=== PATIENT | male | born 1935 | race Hispanic/Latino ===

== ENCOUNTER 2018-03-15 13:03 | Inpatient (IN) | payer MEDICARE ==
[2018-03-15 13:04] VITALS: PULSE 160
[2018-03-15 13:18] VITALS: BMI 26.9
--- NOTE | 2018-03-15 13:34 | ED PDOC ---
Arrival/HPI - General Time Seen by Provider: 03/15/18 13:34 Historian: Patient, Family - History of Present Illness Narrative History of Present Illness (Text): 03/15/18 13:34 Patient is a 83 year old male whose past medical history includes COPD, who was brought by EMS to the Emergency Department with his daughter for dyspnea on exertion. Daughter reports that patient started experiencing shortness of breath 4 days ago, and at that time noticed he was breathing faster and wheezing. Today, he saw his PMD and started experiencing dyspnea while walking with his walker. His PMD measured his Pulse Ox at 85, and subsequently instructed him to present to the emergency department for chest X-ray. Of note he lives with his partner, and his daughter denies that patient experiences confusion. Patient has scrapes on his lower extremities, which he attributes to falling last week, and daughter doesn't believe he hit his head. He currently denies any dyspnea. Patient denies fevers, chills, cough, chest pain, abdominal pain, nausea, vomiting, diarrhea, neck/back pain, urinary/bowel changes, headache, dizziness, or any other complaint. Patient had flu shot last week. PMD: . Time/Duration: < week Symptom Onset: Sudden Symptom Course: Unchanged Activities at Onset: Light Context: Walking Past Medical History - Provider Review Nursing Documentation Reviewed: Yes - Infectious Disease Hx of Infectious Diseases: None - Tetanus Immunization Tetanus Immunization: Unknown - Cardiac Hx Pacemaker: No - Pulmonary Hx Chronic Obstructive Pulmonary Disease (COPD): Yes Hx Emphysema: Yes Hx Sleep Apnea: Yes (uses bipap at home) - Neurological Hx Paralysis: No - HEENT Other/Comment: bilateral hearing aids - Hematological/Oncological Hx Blood Transfusions: No - Integumentary Hx Cellulitis: Yes - Musculoskeletal/Rheumatological Hx Musculoskeletal Disorders: Yes - Gastrointestinal Hx Gastroesophageal Reflux: Yes Other/Comment: gi bleed - Genitourinary/Gynecological Hx Genitourinary Disorders: No Hx Reproductive Disorders: No - Psychiatric Hx Emotional Abuse: No Hx Physical Abuse: No Hx Substance Use: No - Surgical History Hx Inguinal Hernia Repair: Yes Other/Comment: colon sx - Anesthesia Hx Anesthesia Reactions: No Hx Malignant Hyperthermia: No - Suicidal Assessment Feels Threatened In Home Enviroment: No Family/Social History - Physician Review Nursing Documentation Reviewed: Yes Family/Social History: No Known Family HX Smoking Status: quit 10 yr Hx Alcohol Use: No Hx Substance Use: No Hx Substance Use Treatment: No Allergies/Home Meds Allergies/Adverse Reactions: Allergies No Known Allergies Allergy (Verified 03/15/18 13:36) Home Medications: Home Meds Medication Instructions Recorded Confirmed RX: Albuterol HFA [Ventolin HFA 90 1 puff IH DAILY PRN 03/15/12 03/15/18 mcg/actuation (8 g)] RX: Alprazolam [Xanax] 0.25 mg PO HS 03/15/18 03/15/18 RX: Cetirizine HCl [Zyrtec] 10 mg PO DAILY 03/15/18 03/15/18 RX: Fluticasone/Vilanterol 200/25 1 each PO DAILY 03/15/18 03/15/18 [Breo Ellipta 200-25 Mcg INH] RX: Lisinopril [Zestril] 5 mg PO DAILY 03/15/18 03/15/18 RX: Mirtazapine [Remeron] 15 mg PO DAILY 03/15/18 03/15/18 RX: Montelukast [Singulair] 10 mg PO DAILY 03/15/18 03/15/18 RX: Sertraline [Zoloft] 50 mg PO DAILY 03/15/18 03/15/18 RX: Simvastatin [Zocor] 20 mg PO DAILY 03/15/18 03/15/18 Review of Systems - Physician Review All systems were reviewed & negative as marked: Yes - Review of Systems Constitutional: absent: Fevers, Night Sweats Cardiovascular: NUGENT. absent: Chest Pain Gastrointestinal: absent: Abdominal Pain, Constipation, Diarrhea, Nausea, Vomiting Genitourinary Male: absent: Dysuria, Urinary Output Changes Musculoskeletal: absent: Back Pain, Neck Pain Neurological: absent: Headache, Dizziness Physical Exam Vital Signs Reviewed: Yes Vital Signs Temp Pulse Resp BP Pulse Ox 03/15/18 13:17 98.1 F 94 H 20 139/76 100 Temperature: Afebrile Blood Pressure: Normal Pulse: Regular Respiratory Rate: Normal Appearance: Positive for: Well-Appearing Mental Status: Positive for: Alert and Oriented X 3 - Systems Exam Head: Present: Atraumatic, Normocephalic Pupils: Present: PERRL Extroacular Muscles: Present: EOMI Conjunctiva: Present: Normal Mouth: Present: Moist Mucous Membranes Neck: Present: Normal Range of Motion Respiratory/Chest: Present: Good Air Exchange, Wheezes (scant bilateral expiratory wheezes.). No: Respiratory Distress, Accessory Muscle Use, Rales, Rhonchi Cardiovascular: Present: Regular Rate and Rhythm, Normal S1, S2. No: Murmurs Abdomen: No: Tenderness, Distention, Peritoneal Signs Back: Present: Normal Inspection Upper Extremity: Present: Normal Inspection. No: Cyanosis, Edema Lower Extremity: Present: Edema (trace bilateral lower extremity edema.), Other (chronic venous stasis.) Neurological: Present: GCS=15, CN II-XII Intact, Speech Normal Skin: Present: Warm, Dry, Normal Color, Abrasion (multiple superficial abrasions to bilateral lower extremities.). No: Rashes Psychiatric: Present: Alert, Oriented x 3, Normal Insight, Normal Concentration Medical Decision Making ED Course and Treatment: 03/15/18 13:34 Impression: Patient is a 83 year old male complaining of dyspnea on exertion for the past 4 days. Differential Diagnosis included but are not limited to: Plan: -- Head CT without contrast -- EKG -- Labs -- Cardiac enzymes -- Chest X-ray -- Urinalysis -- Reassess and disposition Prior Visits: Notes and results from previous visits were reviewed. Progress Notes: 03/15/18 15:21 Discussed case with , who is aware of and agrees to admit patient under her service. Patient will be treated with IV antibiotics for pneumonia. - Lab Interpretations Lab Results: Lab Results 03/15/18 13:13: POC Glucose (mg/dL) 97 I have reviewed the lab results: Yes - RAD Interpretation Narrative RAD Interpretations (Text): 03/15/18 14:[address] without Contrast: Dictator : Marquise Kirby MD FINDINGS: HEMORRHAGE: No intracranial hemorrhage. BRAIN: No mass effect or edema. Cortical and cerebellar atrophy, periventricular small vessel disease. VENTRICLES: Unremarkable. No hydrocephalus. CALVARIUM: Unremarkable. PARANASAL SINUSES: Unremarkable as visualized. No significant inflammatory changes. MASTOID AIR CELLS: Unremarkable as visualized. No inflammatory changes. OTHER FINDINGS: None. IMPRESSION: No acute intracranial abnormalities. No significant findings to account for the clinical presentation. No significant interval change compared to the prior examination(s). 03/15/18 16:35 Chest X-ray: Dictator : Marquise Kirby MD FINDINGS: LUNGS: Chronic interstitial lung disease. The findings are progressive compared to the prior study. PLEURA: No significant pleural effusion identified. No pneumothorax apparent. CARDIOVASCULAR: No radiographic findings to suggest acute or significant cardiovascular disease. OSSEOUS STRUCTURES: No significant abnormalities. VISUALIZED UPPER ABDOMEN: Normal. OTHER FINDINGS: None. IMPRESSION: Progressive interstitial changes. No focal, discrete infiltrates. Motor Brakeman: Radiologist - EKG Interpretation EKG Interpretation (Text): 03/15/18 13:17 EKG shows NSR at 100bpm with normal QRS, and frequent PAC's. No acute ST/T wave abnormality. Interpreted by me. Interpreted by ED Physician: Yes Type: 12 lead EKG - Scribe Statement The provider has reviewed the documentation as recorded by the Scribe Derick Allison Provider Scribe Attestation: All medical record entries made by the Scribe were at my direction and personally dictated by me. I have reviewed the chart and agree that the record accurately reflects my personal performance of the history, physical exam, medical decision making, and the department course for this patient. I have also personally directed, reviewed, and agree with the discharge instructions and disposition. Disposition/Present on Arrival - Present on Arrival Any Indicators Present on Arrival: No History of DVT/PE: No History of Uncontrolled Diabetes: No Urinary Catheter: No History Surgical Site Infection Following: None - Disposition Have Diagnosis and Disposition been Completed?: Yes Diagnosis: Pneumonia Disposition: HOSPITALIZED Disposition Time: 15:21 Condition: FAIR
[2018-03-15 13:58] LABS: BASO # 0.04 K/mm3 (0.0-2.0); BASO % 0.3 % (0.0-3.0); EOS # 0.1 (0.0-0.7); EOS % 0.6 % (1.5-5.0); GRAN # 12.07 (1.4-6.5); HEMOGLOBIN 14.4 g/dL (14.0-18.0); LYMPH # 1.4 (1.2-3.4); LYMPH % 9.9 % (22.0-35.0); MEAN CELL VOLUME 96.2 fl (80.0-105.0); MEAN CORPUSCULAR HEMOGLOBIN 31.8 pg (25.0-35.0); MEAN PLATELET VOLUME 9.6 fl (7.0-11.0); MONO # 0.9 (0.1-0.6); MONO % 6.2 % (1.0-6.0); RBC 4.53 10^6/uL (3.5-6.1); RED CELL DISTRIBUTION WIDTH 13.3 % (11.5-14.5); WHITE BLOOD COUNT 14.5 10^3/ul (4.5-11.0)
[2018-03-15 14:02] LABS: INR 1.31; PARTIAL THROMBOPLASTIN TIME 25.1 Seconds (25.1-36.5); PROTHROMBIN TIME 15.1 SECONDS (9.4-12.5)
[2018-03-15 14:05] LABS: ALB/GLOB RATIO 1.1 (1.1-1.8)
[2018-03-15 14:08] LABS: ALBUMIN 3.7 g/dL (3.0-4.8); ALT/SGPT 23 U/L (7-56); AST/SGOT 33 U/L (17-59); BLOOD UREA NITROGEN 16 mg/dL (7-21); CALCIUM 9.2 mg/dL (8.4-10.5); GFR NON-AFRICAN AMERICAN > 60
--- NOTE | 2018-03-15 14:20 | CT ---
Date of service: 03/15/2018 PROCEDURE: CT HEAD WITHOUT CONTRAST. HISTORY: trauma COMPARISON: 05/05/2014 TECHNIQUE: Axial computed tomography images were obtained through the head/brain without intravenous contrast. Supplemental Coronal and Sagittal projectections created and reviewed. Radiation dose: Total exam DLP = 1052.05 mGy-cm. This CT exam was performed using one or more of the following dose reduction techniques: Automated exposure control, adjustment of the mA and/or kV according to patient size, and/or use of iterative reconstruction technique. FINDINGS: HEMORRHAGE: No intracranial hemorrhage. BRAIN: No mass effect or edema. Cortical and cerebellar atrophy, periventricular small vessel disease. VENTRICLES: Unremarkable. No hydrocephalus. CALVARIUM: Unremarkable. PARANASAL SINUSES: Unremarkable as visualized. No significant inflammatory changes. MASTOID AIR CELLS: Unremarkable as visualized. No inflammatory changes. OTHER FINDINGS: None. IMPRESSION: No acute intracranial abnormalities. No significant findings to account for the clinical presentation. No significant interval change compared to the prior examination(s).
[2018-03-15 14:24] LABS: B-TYPE NATRIURETIC PEPTIDE 254 pg/mL (0-450); TROPONIN I 0.02 ng/mL
[2018-03-15] MEDS ORDERED: cefTRIAXone 1 gm 1 GM/100 ML BAG IVPB STA (15:30)
[2018-03-15] MEDS ORDERED: Azithromycin 500MG/NS 250ml 500 MG/250 ML BAG IVPB STA (15:31)
--- NOTE | 2018-03-15 16:12 | RAD ---
Date of service: 03/15/2018 HISTORY: dyspnea, pneumonia, hx copd COMPARISON: 06/05/2014 TECHNIQUE: Chest PA and lateral FINDINGS: LUNGS: Chronic interstitial lung disease. The findings are progressive compared to the prior study. PLEURA: No significant pleural effusion identified. No pneumothorax apparent. CARDIOVASCULAR: No radiographic findings to suggest acute or significant cardiovascular disease. OSSEOUS STRUCTURES: No significant abnormalities. VISUALIZED UPPER ABDOMEN: Normal. OTHER FINDINGS: None. IMPRESSION: Progressive interstitial changes. No focal, discrete infiltrates.
[2018-03-15] MEDS ORDERED: Albuterol 0.083% Inhal Sol (2.5 mg/3 mL) UD IH PRN (21:05)
[2018-03-15] MEDS ORDERED: Pneumococcal 23-Valent Vaccine IM ONE (22:14)
[2018-03-16] MEDS: Pantoprazole 20 mg EC Tab PO SCH (08:30)
--- NOTE | 2018-03-16 09:11 | CARD ---
APPROVED REPORT Date of service: 03/15/2018 EKG Measurement Heart [id number] <Conclusion> Sinus rhythm with premature supraventricular complexes Mild NSSTW changes and QTc prolongation
[2018-03-16] MEDS ORDERED: Azithromycin 500 MG in Sodium Chloride 0.9% 250 ML IVPB SCH (10:00)
[2018-03-16] MEDS: cefTRIAXone 1 gm 1 GM/100 ML BAG IVPB SCH (10:34)
[2018-03-16] MEDS: Azithromycin 500MG/NS 250ml 500 MG/250 ML BAG IVPB SCH (10:34)
[2018-03-16] MEDS: [UNRECOGNIZED DRUG - OTHER] PO SCH (10:35)
--- NOTE | 2018-03-17 04:04 | CON ---
DATE: 03/16/2018 REFERRING PHYSICIAN: Jennifer Brown MD REASON FOR CONSULT: Hypoxemia, pneumonia. HISTORY OF PRESENT ILLNESS: This is an 83-year-old gentleman known to me from previous admission in the office seen by me few years ago, apparently found at home by the daughter with shortness of breath, hypoxemia, having cough, sent to ER, found to have pulmonary infiltrate, admitted, at present he feels okay, very heard of hearing. No hemoptysis, hematemesis, hematuria. No diarrhea or vomiting. PAST MEDICAL HISTORY: Chronic obstructive lung disease, obstructive sleep apnea syndrome, noncompliant with CPAP, degenerative joint disease, GERD, history of inguinal hernia, depression, hyperlipidemia. ALLERGIES: NONE KNOWN. SOCIAL HISTORY: Nonsmoker, nondrinker. Last time smoked was about 10 years ago. FAMILY HISTORY: No significant pulmonary disease reported. MEDICATIONS: He is on albuterol/Atrovent nebulizer p.r.n. basis, Claritin 10 mg daily, getting BREO one puff daily, Lipitor 10 mg daily, Protonix 20 mg before breakfast, Remeron 15 mg daily, Rocephin 1 g daily, Singulair 10 mg daily, Xanax 0.25 mg at bedtime, Zestril 5 mg daily, Zithromax 500 mg daily, Zoloft 50 mg daily. REVIEW OF SYSTEMS: No headache. No rhinitis. Mild cough and shortness of breath. No chest pain. No nausea. No vomiting or diarrhea. No leg pain or leg swelling. PHYSICAL EXAMINATION: GENERAL: No acute distress. VITAL SIGNS: Temp is 98, heart rate is 82, respiratory rate is 18, blood pressure 102/59, pulse ox 96% on 2 L nasal cannula. HEENT: Moist mucous membranes, crowded airway. Mallampati score is 4. NECK: Supple. No JVD. LUNGS: Few crackles. No rhonchi. HEART: S1 and S2. ABDOMEN: Soft, nontender. No organomegaly. EXTREMITIES: No edema. NEUROLOGIC: Awake, alert. Follows simple command. LABORATORY DATA: Shows hemoglobin 14.4, hematocrit 43.6, WBC 14.5, platelets is 270. INR 1.31, PTT 25. Sodium 143, potassium 3.6, chloride 106, bicarbonate 28, BUN 16, creatinine 0.8, glucose 107, calcium 9.2, magnesium 2, total bilirubin 1.1, AST 23, ALT 23, alkaline phosphatase is 90. Pro BNP 254, albumin is 3.7. Microbiology, blood culture out of 2 has gram positive cocci. Chest x-ray done in ER shows progressive interstitial changes. No focal discrete infiltrate. Also has a CT of the head done, which shows no acute intracranial abnormality. IMPRESSION AND PLAN: Chronic obstructive lung disease, has interstitial pattern, history of sleep apnea syndrome, very hard of hearing, history of gastroesophageal reflux disease, depression, anxiety disorder, hyperlipidemia. Patient stopped using his CPAP. Noncompliant with the followup. Has interstitial disease, progressively getting worse. We will get CT scan of the chest without contrast. Also we will get ABG to assess pCO2. Continue inhaled bronchodilator for now. We will add prednisone 20 mg daily. Continue antibiotics. Also we will do swallow evaluation to assure there is no chronic aspiration. Thank you and we will follow with you. Kimmy Gan MD
--- NOTE | 2018-03-17 07:16 | HP ---
The patient is 83-year-old male. The patient was seen and examined on the bedside on 03/16/2018. CHIEF COMPLAINT: Shortness of breath, coughing, fatigue. HISTORY OF PRESENT ILLNESS: Mr. Ishmael Martínez is a 83-year-old male with past medical history of COPD, asthma, brought to the Emergency Department with his daughter for dyspnea on exertion. Daughter reports that the patient started experiencing shortness of breath four days ago and that time noticed that he was breathing faster and wheezing. Today, the patient came in my office and during vitals, we noted the patient's oxygenation is in 80s and he is very dyspneic. Then, I talked to the patient and the patient's daughter and we called [employer] and transferred the patient to the emergency room. The patient came to the emergency room, was dyspneic. Oxygen was given. Workup was done, came to know the patient has had pneumonia, admitted the patient, started antibiotic. Pulmonary consult called. DuoNeb and bronchodilators given. He is started feeling better. PAST MEDICAL HISTORY: COPD, sleep apnea, cellulitis of the lower extremities, bilateral hearing aid, history of GI bleeding. FAMILY HISTORY: Father and mother, noncontributory. HABITS: Smoking, quit 10 years ago. Alcohol, no. Substance abuse, no. ALLERGIES: THE PATIENT IS NOT ALLERGIC WITH ANY MEDICATIONS. HOME MEDICATIONS: Ventolin, bupropion, Xanax, Zyrtec, fluticasone, Zestril, Remeron, Singulair, Zocor. REVIEW OF SYSTEMS: The patient was seen and examined on the bedside, looking comfortable. No nausea, vomiting or diarrhea. No hematuria or hematochezia. Cough, shortness of breath and dyspnea is better. No swelling of the leg. No neck pain, no back pain. No headache or dizziness. PHYSICAL EXAMINATION VITAL SIGNS: Temperature 98.1, pulse 94, respiratory rate 20, blood pressure 139/76, pulse oximetry 100. HEENT: Head: Normocephalic, atraumatic. Eyes: PERRLA. Extraocular muscles are intact. Conjunctivae are clear. Nose patent. Mucous membranes moist. NECK: Supple. No carotid bruit. No JVD or thyromegaly. CHEST: Bilaterally symmetrical. LUNGS: Scattered bilateral expiratory wheezing. HEART: S1, S2 positive. ABDOMEN: Soft, nontender. No organomegaly. EXTREMITIES: Trace bilateral lower extremity edema. No cyanosis. NEUROLOGIC: The patient is awake and alert. Follows simple commands. LABORATORY DATA: White blood cells 14.5, hemoglobin 14.4, hematocrit 43.6, platelets 270. Sodium 143, potassium 3.6, BUN 15, creatinine 0.8, glucose 107. ASSESSMENT AND PLAN: Mr. Ishmael Martínez is 83-year-old male with leukocytosis, came with dyspnea. CAT scan of the head done. No acute intracranial abnormalities. No significant findings found for the clinical presentation. No significant changes compared to the prior examination. Chest x-ray done, progressive interstitial changes, no focal discrete infiltrates. The patient has history of chronic obstructive pulmonary disease, asthma, degenerative joint disease, history of dementia, sleep apnea, using BiPAP at home, bilateral hearing aid, history of gastrointestinal bleeding. We called Pulmonary consult with Dr. Gan. Started on Claritin. Atorvastatin for hypercholesterolemia. Dr. Gan put her on low-dose of steroid, pantoprazole for gastrointestinal prophylaxis. Ceftriaxone as the antibiotics started. Patient is getting Xanax low dose to keep him cool and calm. Lisinopril for hypercholesterolemia, Zoloft for depression. Length of time discussion done with the patient's daughter. Repeat labs. Continue antibiotics. We will follow up. Jennifer Brown MD
[2018-03-17 07:37] LABS: HDL CHOLESTEROL 25 mg/dL (29-60); IRON 43 ug/dL (45-180)
[2018-03-17 07:46] LABS: % IRON SATURATION 21 % (20-55); TOTAL IRON BINDING CAPACITY 208 ug/dL (261-462)
[2018-03-17 07:48] LABS: LDL CHOLESTEROL 83 mg/dL (0-129)
[2018-03-17] MEDS: Pantoprazole 20 mg EC Tab PO SCH (08:30)
[2018-03-17] MEDS: Azithromycin 500MG/NS 250ml 500 MG/250 ML BAG IVPB SCH (10:27)
[2018-03-17] MEDS: cefTRIAXone 1 gm 1 GM/100 ML BAG IVPB SCH (10:45)
--- NOTE | 2018-03-17 13:45 | CT ---
Date of service: 03/17/2018 PROCEDURE: CT Chest without contrast HISTORY: interstitial disease COMPARISON: 03/15/2018 single-view chest. 06/05/2014 single-view chest. 06/04/2014 CT abdomen and pelvis including lower lung reyes. TECHNIQUE: Contiguous axial images were obtained through the chest without intravenous contrast enhancement. Sagittal and coronal reconstructions were performed. Radiation dose (DLP): 409.64 mGy-cm. This CT exam was performed using one or more of the following dose reduction techniques: Automated exposure control, adjustment of the mA and/or kV according to patient size, and/or use of iterative reconstruction technique. FINDINGS: LUNGS: Formation of progressive interstitial lung disease. The findings primarily affect the lower lobes, with portions of lingula and right middle lobe also affected. The differential diagnostic considerations include idiopathic pulmonary fibrosis, granulomatous disease such as sarcoid infectious/inflammatory etiologies, exposure to dust, silica and similar irritants. Additional relevant findings include peripheral and pleural base masses in the right upper lobe, lingula and right lower lobe. Discrete pulmonary nodule superior segment right lower lobe 1.5 cm. MEDIASTINUM: Unremarkable thoracic aorta. No aneurysm. Normal sized heart. Dilated main pulmonary artery 3.5 cm consistent with pulmonary arterial hypertension. No lymphadenopathy. PLEURA: No pleural fluid. No pneumothorax. BONES: No fracture. No destructive lesion. UPPER ABDOMEN: Grossly unremarkable. OTHER FINDINGS: None. Peripheral, pleural-based mass at the confluence of major and minor fissures and right upper lobe. IMPRESSION: Confirmation of progression of interstitial lung disease. Differential considerations have been provided above. Confluent, consolidative changes bilaterally which may be part of this chronic process. Additional pulmonary nodule right lower lobe
--- NOTE | 2018-03-17 22:54 | PN ---
DATE: 03/17/2018 PULMONARY PROGRESS NOTE REFERRING PHYSICIAN: Dr. Brown SUBJECTIVELY: He is lying in the bed at 45 degrees. Feels okay. Still on nasal cannula oxygen. No cough, no sputum production. No nausea, vomiting, diarrhea, leg pain or leg swelling. OBJECTIVE: GENERAL: In no acute distress. VITAL SIGNS: Temperature is 98, heart rate is 83, respiratory rate is 20, blood pressure 104/62, pulse of 97% on 2 liters nasal cannula. HEENT: Moist mucous membrane. Crowded airway. Mallampati score is 4. NECK: Supple. No JVD. LUNGS: Has crackles and rhonchi. HEART: S1 and S2. ABDOMEN: Soft, nontender, no organomegaly. EXTREMITIES: No edema. NEUROLOGIC: Awake and alert, follows simple commands, is very hard of hearing. MEDICATIONS: He is on albuterol/Atrovent nebulizer p.r.n., also on Claritin 10 mg daily. He is getting Breo Ellipta 1 puff daily, Lipitor 10 mg daily, prednisone 20 mg daily, Protonix 20 mg daily, Remeron 15 mg at bedtime, Rocephin 1 g IV daily, Singulair 10 mg daily, Xanax 0.25 mg at bedtime, Zestril 5 mg daily, Zithromax 5 mg daily, Zoloft 50 mg daily. LABORATORY DATA: Reviewed, shows hemoglobin A1c 4.9, iron is 43, TIBC 208, cholesterol is 131. Vitamin B12 is 589. Microbiology; 1 out of 2 blood culture is positive. CAT scan of the chest shows progressive interstitial lung disease along with has also new finding, consolidative changes bilaterally which may be part of the chronic process. There is also additional pulmonary nodule in the right lower lobe, dilated pulmonary artery 3.5 cm, consistent with pulmonary arterial hypertension. IMPRESSION AND PLAN: Chronic obstructive lung disease, has interstitial and nodular changes on the CT, known sleep apnea syndrome, noncompliance with the CPAP and follow-up, pulmonary hypertension, gastroesophageal reflux disease, depression, anxiety disorder, hyperlipidemia. I called the patient's daughter, Isidra on her cell phone and there is no answer message left. I spoke to the patient in detail about lung finding, possibility of biopsy which she refused that he is 84 years old, does not want any biopsy, but we will continue to reach the patient's daughter to discuss further option. Also swallow evaluation is being done. For now I will continue bronchodilator. Keep head at 45 degrees. We will also get echocardiogram to assess RV and LV function. Thank you and we will follow with you. Kimmy Gan MD
--- NOTE | 2018-03-17 23:25 | PN ---
DATE: 03/17/2018 SUBJECTIVE: The patient was seen and examined on the bedside, looking comfortable. No nausea, vomiting, diarrhea. No hematuria or hematochezia. No swelling of the leg. No chest pain. No palpitation. Still coughing and having shortness of breath. No fever. No chills. PHYSICAL EXAMINATION: VITAL SIGNS: Temperature 97.8, pulse 76, blood pressure 155/75, respiratory rate 20. HEENT: Head normocephalic, atraumatic. Eyes PERRLA. Extraocular muscles intact. Conjunctivae clear. Nose patent. Mucous membrane moist. NECK: Supple. No carotid bruit. No JVD or thyromegaly. CHEST: Bilaterally symmetrical. HEART: S1 and S2 positive. LUNGS: Positive wheezing bilaterally. ABDOMEN: Soft. Bowel sounds positive. No organomegaly. EXTREMITIES: No edema. No cyanosis. NEUROLOGICAL: The patient is awake and alert. Moving all 4 extremities. No focal deficits. MEDICATIONS: Albuterol, Brovana, Claritin, Lipitor, prednisone, Protonix, Pulmicort, Remeron, Rocephin, Singulair, Xanax, Zestril, Zithromax, Zoloft. LABORATORY DATA: We do not have recent lab today, but I reviewed old labs. Hemoglobin A1c is 4.9. ASSESSMENT AND PLAN: Mr. Ishmael Martínez, 83-year-old male with chronic obstructive lung disease, obstructive sleep apnea syndrome, noncompliant with continuous positive airway pressure, degenerative joint disease, gastroesophageal reflux disease, dyspepsia, history of inguinal hernia, depression, hypercholesterolemia. Came with exacerbation of chronic obstructive pulmonary disease. Has interstitial pattern. Very hard of hearing, history of gastroesophageal reflux disease, depression, anxiety disorder, hypercholesterolemia. The patient has stopped using his continuous positive airway pressure. Noncompliant with followup. Has interstitial disease progressing and getting worse. Dr. Gan got CAT scan of the chest, I reviewed. Continue inhaled bronchodilators. Dr. Gan added prednisone. Continue antibiotics. We will do swallowing evaluation to assure that there is no chronic aspiration components. Gastrointestinal, deep venous thrombosis prophylaxis. Repeat labs. We will follow up. Jennifer Brown MD
[2018-03-18 08:55] LABS: HEMOGLOBIN 14.5 g/dL (14.0-18.0); MEAN CELL VOLUME 96.4 fl (80.0-105.0); MEAN CORPUSCULAR HEMOGLOBIN 31.1 pg (25.0-35.0); MEAN CORPUSCULAR HGB CONC 32.3 g/dl (31.0-37.0); MEAN PLATELET VOLUME 9.6 fl (7.0-11.0); RBC 4.66 10^6/uL (3.5-6.1); RED CELL DISTRIBUTION WIDTH 13.2 % (11.5-14.5); WHITE BLOOD COUNT 11.8 10^3/ul (4.5-11.0)
[2018-03-18 09:14] LABS: BLOOD UREA NITROGEN 14 mg/dL (7-21); CALCIUM 8.8 mg/dL (8.4-10.5); GFR NON-AFRICAN AMERICAN > 60
[2018-03-18] MEDS: Arformoterol 15 mcg/2 ml Inh Sol IH SCH ×2 (10:09→21:41)
[2018-03-18] MEDS: Budesonide 0.5 mg/2 ml Inhal Susp UD IH SCH ×2 (10:09→21:41)
[2018-03-18] MEDS: Pantoprazole 20 mg EC Tab PO SCH (10:26)
[2018-03-18] MEDS: cefTRIAXone 1 gm 1 GM/100 ML BAG IVPB SCH (10:26)
[2018-03-18] MEDS: Azithromycin 500MG/NS 250ml 500 MG/250 ML BAG IVPB SCH (10:27)
--- NOTE | 2018-03-18 21:15 | PN ---
DATE: 03/18/2018 PULMONARY PROGRESS NOTE REFERRING PHYSICIAN: Jennifer Brown MD SUBJECTIVE: He is lying in the bed, head at 45 degrees, having lunch. Family at bedside, still has some cough. No sputum production. No nausea, vomiting, or diarrhea. No leg pain or leg swelling. OBJECTIVE: GENERAL: In no acute distress. VITAL SIGNS: Temperature is 98, heart rate 77, respiratory rate is 18, blood pressure 105/58, pulse ox 96% on 2 liters nasal cannula. HEENT: Moist mucous membrane. Crowded airway. Mallampati score is 4. NECK: Supple. No JVD. LUNGS: Have crackles at the bases with scattered rhonchi. HEART: S1 and S2. ABDOMEN: Soft, nontender. No organomegaly. EXTREMITIES: There is no edema. NEUROLOGICAL: Awake and alert. Follows simple command. MEDICATIONS: He is on albuterol/Atrovent nebulizer p.r.n. basis, Brovana inhaled twice a day, Claritin 10 mg daily, Lipitor 10 mg daily, prednisone 20 mg daily, Protonix 40 mg daily, Pulmicort inhaled twice a day, Remeron 15 mg at bedtime, Rocephin 1 g daily, Singulair 10 mg daily, Xanax 0.25 mg at bedtime, Zestril 2.5 mg daily, Zithromax 500 mg daily, Zoloft 50 mg daily. LABORATORY DATA: Shows hemoglobin 14.5, hematocrit 44.9, WBC 11.8, platelet is 247. Sodium 141, potassium 2.9, chloride 104, bicarbonate 32, BUN 14, creatinine 0.7, glucose is 91, calcium is 8.8. Microbiology: Blood culture 1/2 positive for Gram-positive. IMPRESSION AND PLAN: Chronic obstructive lung disease, interstitial and nodular changes on the CT, sleep apnea syndrome, noncompliant with the CPAP, pulmonary hypertension, gastroesophageal reflux disease, depression, anxiety disorder, hyperlipidemia. Spoke to his significant other. Left a message for the patient's daughter, Isidra. The patient does not want any invasive procedure at this time understanding do not have diagnosis for lung nodule. Also spoke to Dr. Brown. We will repeat blood culture. Gastric prophylaxis, deep vein thrombosis prophylaxis, inhaled bronchodilators, steroids, out of bed to chair, physical therapy. Thank you and we will follow with you. Kimmy Gan MD [facility] # [id number]
--- NOTE | 2018-03-18 23:13 | PN ---
DATE: 03/18/2018 SUBJECTIVE: Patient is an 83-year-old male. Patient was seen and examined on the bedside, looking comfortable. No fever. No chills. No headache. No dizziness. Still coughing with shortness of breath. PHYSICAL EXAMINATION: VITAL SIGNS: Temperature 97.9, pulse 77, blood pressure 105/58, respiratory rate 18. HEENT: Head: Normocephalic, atraumatic. Eyes: PERRLA. Extraocular muscles intact. Conjunctivae clear. Nose patent. Mucous membrane moist. NECK: Supple. No carotid bruit. No JVD or thyromegaly. CHEST: Bilaterally symmetrical. HEART: S1 and S2 positive. LUNGS: Positive wheezing bilaterally. ABDOMEN: Soft. Bowel sounds present. No organomegaly. EXTREMITIES: No edema. No cyanosis. NEUROLOGIC: Patient is awake and alert. Moving all 4 extremities. No focal deficit. MEDICATIONS: Brovana, Claritin, Lipitor, prednisone, Protonix, Pulmicort, Remeron, ceftriaxone, Singulair, Xanax, Zestril, azithromycin, Zoloft. LABORATORY DATA: White blood cells 11.8, hemoglobin 14.5, hematocrit 44.9, platelets 247. Sodium 141, potassium 3.9, BUN 14, creatinine 0.7, glucose 91. ASSESSMENT AND PLAN: Mr. Ishmael Martínez is an 83-year-old male with leukocytosis, iron deficiency, has chronic obstructive lung disease, interstitial and nodular changes on the CAT scan, known sleep apnea syndrome, noncompliant with CPAP and followup, pulmonary hypertension, gastroesophageal reflux disease, depression, anxiety syndrome, hypercholesterolemia. Spoke to patient's daughter, Isidra couple of times. Length of time discussion done with Dr. Gan. Patient's lung nodules are increasing in size. Patient is refusing all services. He wants to go home, but I educated him to stay in the hospital. Patient need biopsy, but he is refusing. We will discuss with patient's daughter and son. Meanwhile, continue present treatment. Repeat labs. We will follow up. Jennifer Brown MD
[2018-03-19] MEDS: Arformoterol 15 mcg/2 ml Inh Sol IH SCH ×2 (08:37→20:37)
[2018-03-19] MEDS: Budesonide 0.5 mg/2 ml Inhal Susp UD IH SCH ×2 (08:38→20:37)
[2018-03-19] MEDS: Pantoprazole 20 mg EC Tab PO SCH (09:31)
[2018-03-19] MEDS: Azithromycin 500MG/NS 250ml 500 MG/250 ML BAG IVPB SCH (09:34)
[2018-03-19] MEDS: cefTRIAXone 1 gm 1 GM/100 ML BAG IVPB SCH (09:35)
[2018-03-19] MEDS: [UNRECOGNIZED DRUG - OTHER] PO SCH (11:20)
--- NOTE | 2018-03-19 22:59 | PN ---
DATE: 03/19/2018 SUBJECTIVE: The patient was seen and examined on the bedside on 03/19/2018. I am doing progress notes for 03/19/2018. The patient is looking comfortable. Wants to go home. Cough is better. Shortness of breath is better. No nausea, vomiting, diarrhea. No hematuria or hematochezia. No fever. No chills. No headache. No dizziness. The patient is a very poor historian. PHYSICAL EXAMINATION: VITAL SIGNS: Temperature 97.6, pulse 67, blood pressure 105/58, respiratory rate 18, oxygenation 94. HEENT: Head normocephalic, atraumatic. Eyes PERRLA. Extraocular muscles intact. Conjunctivae clear. Nose patent. Mucous membrane moist. NECK: Supple. No carotid bruit. No JVD or thyromegaly. CHEST: Bilaterally symmetrical. HEART: S1 and S2 positive. LUNGS: Clear to auscultation. ABDOMEN: Soft. Bowel sounds positive. No organomegaly. EXTREMITIES: No edema. No cyanosis. NEUROLOGICAL: The patient is awake and alert. Moving all 4 extremities. No focal deficits. MEDICATIONS: Albuterol, Brovana, Claritin, Lipitor, prednisone, Protonix, Pulmicort, Remeron, Rocephin, Singulair, Xanax, Zestril, azithromycin, Zoloft. LABORATORY DATA: White blood cell is 11.8, hemoglobin 14.5, hematocrit 44.9, platelets 247. Sodium 141, potassium 3.9, BUN 14, creatinine 0.7, iron 43. ASSESSMENT AND PLAN: Mr. Ishmael Martínez, 83-year-old male with leukocytosis, iron deficiency, hard of hearing. CAT scan of the chest and CAT scan of the head done, reviewed by me, chronic obstructive lung disease. Interstitial and nodular changes on the CAT scan, sleep apnea syndrome, noncompliant with the testing, medication and office visits. Need continuous positive airway pressure. Pulmonary hypertension, gastroesophageal reflux disease, depression, anxiety disorder, hypercholesterolemia. Length of time discussion done with the patient and Dr. Gan. patient needs some rehabilitation for shortness of breath and deconditioned. Gastrointestinal, deep venous thrombosis prophylaxis. Repeat labs. We will follow up. Jennifer Brown MD [facility]
--- NOTE | 2018-03-20 00:03 | PN ---
DATE: 03/19/2018 PULMONARY PROGRESS NOTE REFERRING PHYSICIAN: Jennifer Brown MD SUBJECTIVE: The patient is sitting up in chair. Night was unremarkable. Still has some cough and shortness of breath. No nausea. No vomiting. No diarrhea. No leg pain or leg swelling. OBJECTIVE: GENERAL: In no acute distress. VITAL SIGNS: Temperature is 98, heart rate is 75, respiratory rate is 18, blood pressure 111/70, pulse ox 96% on 2 liter nasal cannula. HEENT: Moist mucous membrane. Crowded airway. NECK: Supple. No JVD. LUNGS: Have crackles at the bases with scattered rhonchi. HEART: S1 and S2. ABDOMEN: Soft, nontender. No organomegaly. EXTREMITIES: No edema. NEUROLOGICAL: Awake and alert. Follows simple command. MEDICATIONS: He is on albuterol/Atrovent nebulizer p.r.n., Brovana inhaled twice a day, Claritin 10 mg daily, Lipitor 10 mg daily, prednisone 20 mg daily, Protonix 20 mg before breakfast, Pulmicort inhaled twice a day, Remeron 15 mg daily, Rocephin 1 g IV daily, Singulair 10 mg daily, Xanax 0.25 mg at bedtime, Zestril 5 mg daily, Zithromax 500 mg daily, Zoloft 50 mg daily. LABORATORY DATA: Reviewed. No new lab is available since yesterday. Microbiology, one out of two blood culture is positive. IMPRESSION AND PLAN: Chronic obstructive lung disease, interstitial infiltrate also has some nodular changes, new nodule is found on the CT, sleep apnea syndrome, noncompliant with the continuous positive airway pressure, pulmonary hypertension, gastroesophageal reflux disease, depression, anxiety disorder, hyperlipidemia. I had a long discussion with the patient and patient's daughter, Isidra about lung finding. Patient and family do not want to be aggressive for the biopsy; even if we find something there, not interested in any further therapeutic maneuvers, understanding we may miss lung cancer. We will continue supportive care. Continue antibiotics and inhaled bronchodilator. Sleep apnea precaution. Keep head at 45 degrees. Out of bed to chair. Physical therapy. Patient been having frequent fall, may benefit from rehab. Thank you and we will follow with you. Kimmy Gan MD [facility] # [id number]
[2018-03-20] MEDS: Arformoterol 15 mcg/2 ml Inh Sol IH SCH ×2 (08:06→21:14)
[2018-03-20] MEDS: Budesonide 0.5 mg/2 ml Inhal Susp UD IH SCH ×2 (08:06→21:14)
[2018-03-20] MEDS: cefTRIAXone 1 gm 1 GM/100 ML BAG IVPB SCH (10:27)
[2018-03-20] MEDS: Azithromycin 500MG/NS 250ml 500 MG/250 ML BAG IVPB SCH (11:00)
[2018-03-20] MEDS: Pantoprazole 20 mg EC Tab PO SCH (18:07)
--- NOTE | 2018-03-20 21:42 | CARD ---
APPROVED REPORT Date of service: 03/20/2018 EXAM: Two-dimensional and M-mode echocardiogram with Doppler and color Doppler. INDICATION PULMONARY HTN 2D DIMENSIONS IVSd1.1 (0.7-1.1cm)LVDd5.1 (3.9-5.9cm) PWd1.5 (0.7-1.1cm)LVDs3.2 (2.5-4.0cm) FS (%) 36.3 %LVEF (%)65.7 (>50%) M-Mode DIMENSIONS Left Atrium (MM)3.70 (2.5-4.0cm)Aortic Root3.40 (2.2-3.7cm) Aortic Cusp Exc.1.80 (1.5-2.0cm) Aortic Valve AoV Peak Zvwtfwnj575.0cm/Kan Peak GR.13mmHg Mitral Valve MV E Uufchbqx28.2cm/sMV A Drhqafix52.8cm/sE/A ratio0.8 TDI Lateral E' Peak V10.00cm/sMedial E' Peak V6.14cm/sE/Lateral E'8.1 E/Medial E'13.2 Tricuspid Valve TR Peak Oesbdqbl130qu/sRAP FZNFSYXP80bvRyZO Peak Gr.57mmHg OXAK34hvBs LEFT VENTRICLE The left ventricle is normal size. There is mild concentric left ventricular hypertrophy. The left ventricular function is normal. The left ventricular ejection fraction is within the normal range. There is normal LV segmental wall motion. Transmitral Doppler flow pattern is Grade I-abnormal relaxation pattern. RIGHT VENTRICLE The right ventricle is normal size. There is normal right ventricular wall thickness. The right ventricular systolic function is normal. ATRIA The left atrium size is normal. The right atrium size is normal. AORTIC VALVE The aortic valve is mildly to moderately sclerotic. No aortic regurgitation is present. There is no aortic valvular stenosis. MITRAL VALVE The mitral valve is mildly thickened. There is no mitral valve regurgitation noted. There is no mitral valve stenosis. TRICUSPID VALVE The tricuspid valve is normal in structure. There is moderate tricuspid regurgitation. There is severe pulmonary hypertension. PULMONIC VALVE The pulmonary valve is normal in structure. There is no pulmonic valvular regurgitation. GREAT VESSELS The aortic root is normal in size. PERICARDIAL EFFUSION There is a trace circumferential pericardial effusion. <Conclusion> The left ventricle is normal size. There is mild concentric left ventricular hypertrophy. The left ventricular function is normal. The left ventricular ejection fraction is within the normal range. There is normal LV segmental wall motion. Transmitral Doppler flow pattern is Grade I-abnormal relaxation pattern. There is moderate tricuspid regurgitation. There is severe pulmonary hypertension.
--- NOTE | 2018-03-21 02:05 | PN ---
DATE: 03/20/2018 PULMONARY PROGRESS NOTE REFERRING PHYSICIAN: Jennifer Brown MD SUBJECTIVE: Patient is sitting up in a bed. Friends are at bedside. Not very hungry today. No nausea, no vomiting. No abdominal pain. No leg pain or leg swelling. OBJECTIVE: GENERAL: No acute distress. VITAL SIGNS: Temperature 98, heart rate 90, respiratory rate is 20, blood pressure 101/63, pulse ox 96% on room air. HEENT: Moist mucous membrane. Crowded airway. Mallampati score is 4. NECK: Supple. No JVD. LUNGS: Have basilar crackles and rhonchi. HEART: S1 and S2. ABDOMEN: Soft, nontender. No organomegaly. EXTREMITIES: No edema. NEUROLOGICAL: Awake and alert. Follows simple command. MEDICATIONS: He is on albuterol/Atrovent nebulizer p.r.n. basis, Brovana inhaled twice a day, Claritin 10 mg daily, Lipitor 10 mg daily, prednisone 20 mg daily, Protonix 20 mg before breakfast, budesonide inhaled twice a day, Remeron 15 mg at bedtime, Singulair 10 mg daily, Xanax 0.25 mg at bedtime, Zestril 5 mg daily, Zithromax 500 mg daily, Zoloft p.r.n. basis. LABORATORY DATA: Reviewed. No new lab is available since yesterday. One out of two blood cultures has Staph coagulase negative. Repeat blood culture has no growth. IMPRESSION AND PLAN: Chronic obstructive lung disease, interstitial infiltrate, lung nodule, sleep apnea syndrome, noncompliant with the continuous positive airway pressure, pulmonary hypertension, gastroesophageal reflux disease, depression, anxiety disorder, hyperlipidemia. Spoke to nursing staff. Also spoke the case with family at bedside. According to the daughter, she would like to see him go to the subacute TRCU type of services because of frequent fall at home. She refused invasive workup including bronchoscopy and biopsy understanding cancer could be missed. Continue gastric prophylaxis, fall precaution, out of bed to chair. Thank you and we will follow with you. Kimmy Gan MD [facility] # [id number]
--- NOTE | 2018-03-21 04:32 | PN ---
DATE: 03/20/2018 SUBJECTIVE: The patient is 83-year-old male. The patient was seen and examined on the bedside on 03/20/2018. His was sitting on the bedside also. No headache, no chest pain, no palpitation. Dyspnea is better. No fever, no chills. PHYSICAL EXAMINATION VITAL SIGNS: Temperature 98.3, pulse 90, respiratory rate 20, blood pressure 101/63, pulse oximetry 96. HEENT: Head normocephalic, atraumatic. Eyes PERRLA. Extraocular muscles intact. Conjunctivae clear. Nose patent. Mucous membrane moist. NECK: Supple. No carotid bruit. No JVD or thyromegaly. CHEST: Bilaterally symmetrical. HEART: S1 and S2 positive. LUNGS: Clear to auscultation. ABDOMEN: Soft. Bowel sounds positive. No organomegaly. EXTREMITIES: No edema. No cyanosis. NEUROLOGICAL: The patient is awake and alert. Moving all 4 extremities. No focal deficits. MEDICATIONS: Albuterol, Brovana, Claritin, Lipitor, prednisone, Protonix, Pulmicort, Remeron, Singulair, Xanax, Zestril, Zithromax, Zoloft. LABORATORY DATA: We do not have recent lab today, but I reviewed old labs. ASSESSMENT AND PLAN: Mr. Ishmael Martínez is 83-year-old male with leukocytosis, iron deficiency, has chronic obstructive lung disease, interstitial infiltrates, some nodular changes, new nodule is found on CT, sleep apnea syndrome, noncompliant with continuous positive airway pressure, pulmonary hypertension, gastroesophageal reflux disease, depression, anxiety, hypercholesterolemia. Dr. Gan had long discussion with the patient's daughter Isidra about lung finding. The patient and family do not want to be aggressive for the biopsy, even if they find something there noted yesterday and any further therapeutic maneuvers, understanding nature of lung cancer. We will continue supportive care, continue antibiotic, tapering dose of steroids, sleep apnea precautions, out of bed to the chair, physical therapy. We will try to do TCU for the patient because it looks like the patient gets benefit from rehab. We will follow up. Jennifer Brown MD [facility] # [id number] MTDD
[2018-03-21] MEDS: Arformoterol 15 mcg/2 ml Inh Sol IH SCH ×2 (07:46→20:22)
[2018-03-21] MEDS: Budesonide 0.5 mg/2 ml Inhal Susp UD IH SCH ×2 (07:46→20:22)
[2018-03-21] MEDS: Pantoprazole 20 mg EC Tab PO SCH (08:17)
[2018-03-21] MEDS: Azithromycin 500MG/NS 250ml 500 MG/250 ML BAG IVPB SCH (09:10)
--- NOTE | 2018-03-21 12:04 | PCM.FALL ---
Post Fall Progress Note - Post Fall Fall Date: 03/21/18 Fall Time: 11:44 Description of Fall: Patient states he was going to throw out something in the garbage. As he was returning to his seat, he lost his balance and fall. Patient denies loc, hitting his head, or any pain in his sacral or back area. Vital signs were checked and were not concerning. Patient was started on oxygen as his oxygen saturation was low. The fall was unwitnessed but by the nursing staff saw patient he was sitting with his back to the wall on his bottom. Patient denied any bruises or cuts however upon physical examination it was note that patient was bleeding from his knees. Patient continuously to state I am fine and nothing is wrong. Patient likely readjusted after fall because his coccyx is not tender but both of his knees have cuts with some blood oozing. - Post Fall Exam Vital Sign: Temp Pulse Resp BP Pulse Ox 97.4 F L 90 20 122/72 94 L 03/21/18 08:58 03/21/18 08:58 03/21/18 08:58 03/21/18 08:58 03/21/18 08:58 Skull Exam: Negative for: Scalp wound, Scalp hematoma, Scalp depression, Ridge in skull Eye Exam: Positive for: Pupils equal, Pupils reactive Ear Exam: Negative for: Discharge, Bleeding Nose Exam: Negative for: Discharge, Bleeding Skin Exam: Positive for: Grazes. Negative for: Colour, Lacerations, Bruising Mouth Exam: Negative for: Tongue bitten, Teeth dislodge Neck Exam: Negative for: Tenderness, Tingling, Weakness Spinal Exam: Negative for: Tenderness, Tingling, Weakness Chest Exam: Negative for: Difficulty breathing, Tenderness in collar bones, Tenderness in ribs Abdomen Exam: Negative for: Tenderness Pelvic Exam: Negative for: Tenderness, Hematuria Arm Exam: Negative for: Deformity, Alteration in range of movement Leg Exam: Negative for: Deformity, Alteration in range of movement Other pertinent findings: bilateral knee cuts with blood treat with alcohol swabs, bacitracin ointment, bandaid Impression/Plan: A: Fall unwitnessed P: Head CT w/o contrast VSS stable Orthostatics pending Fall precautions placed No LOC or seizure like activity noted; no post ictal confusion
--- NOTE | 2018-03-21 13:04 | CT ---
Date of service: 03/21/2018 PROCEDURE: CT HEAD WITHOUT CONTRAST. HISTORY: fall COMPARISON: 03/15/2018 TECHNIQUE: Axial computed tomography images were obtained through the head/brain without intravenous contrast. Radiation dose: Total exam DLP = 1030 mGy-cm. This CT exam was performed using one or more of the following dose reduction techniques: Automated exposure control, adjustment of the mA and/or kV according to patient size, and/or use of iterative reconstruction technique. FINDINGS: HEMORRHAGE: No intracranial hemorrhage. BRAIN: No mass effect or edema. Severe chronic microvascular changes in the deep white matter VENTRICLES: Moderate atrophy with ventricular enlargement CALVARIUM: Unremarkable. PARANASAL SINUSES: Unremarkable as visualized. No significant inflammatory changes. MASTOID AIR CELLS: Unremarkable as visualized. No inflammatory changes. OTHER FINDINGS: None. IMPRESSION: No acute findings
--- NOTE | 2018-03-21 23:21 | PN ---
DATE: 03/21/2018 SUBJECTIVE: The patient was seen and examined on the bedside on 03/21/2018. I am doing progress note for 03/21/2018, looking comfortable. Sitting on the chair. is on the bedside. No nausea, vomiting, diarrhea. No hematuria or hematochezia. No swelling of the legs. No chest pain. No palpitation. Today, in the morning, he has a history of a fall. CAT scan of the head was done. Reviewed all notes. PHYSICAL EXAMINATION VITAL SIGNS: Temperature 98.3, pulse 79, blood pressure 88/53, respiratory rate 20, pulse oximetry 94. HEENT: Head normocephalic, atraumatic. Eyes PERRLA. Extraocular muscles intact. Conjunctivae clear. Nose patent. Mucous membrane moist. NECK: Supple. No carotid bruit. No JVD or thyromegaly. CHEST: Bilaterally symmetrical. HEART: S1 and S2 positive. LUNGS: Clear to auscultation. ABDOMEN: Soft. Bowel sounds positive. No organomegaly. EXTREMITIES: No edema. No cyanosis. NEUROLOGICAL: The patient is awake and alert. Moving all 4 extremities. No focal deficits. MEDICATIONS: Albuterol, bacitracin, Brovana, Claritin, Lipitor, prednisone, Protonix, Pulmicort, Remeron, Singulair, Xanax, Zestril, Zoloft. LABORATORY DATA: White blood cells 11.8, hemoglobin 14.5, hematocrit 44.9, platelets 247. Sodium 141, potassium 3.9. ASSESSMENT AND PLAN: Mr. Ishmael Martínez, 83-year-old male with leukocytosis, iron deficiency. CAT scan of the head was done today. Has chronic obstructive lung disease, interstitial infiltrates, lung nodules, sleep apnea syndrome, noncompliant with continuous positive airway pressure, pulmonary hypertension, gastroesophageal reflux disease, depression, anxiety disorder, ataxia, history of multiple falls, hypercholesterolemia. Need good physical therapy. The patient is deconditioned. Today's fall noted by me. Tried to do Transitional Care Unit, but because of insurance we cannot do that. Talked to the Social Workers. We tried to do subacute rehabilitation depends on the approval. Continue present treatment. Repeat labs. We will follow up. Jennifer Brown MD [facility] # [id number]
--- NOTE | 2018-03-22 00:41 | PN ---
DATE: 03/21/2018 PULMONARY PROGRESS NOTE REFERRING PHYSICIAN: Dr. Brown SUBJECTIVE: He is sitting out of bed to chair, apparently had a fall coming out of the bathroom, has some scratches on the knees, did not hit his head. No nausea, no vomiting. No diarrhea. Not much leg swelling. OBJECTIVE: GENERAL: In no acute distress. VITAL SIGNS: Temperature is 98, heart rate 79, respiratory rate is 20, blood pressure 122/72, pulse ox 94% on 2 liters nasal cannula. HEENT: Moist mucous membrane. Crowded airway. NECK: Supple. No JVD. LUNGS: Have crackles at bases. Scattered rhonchi. HEART: S1 and S2. ABDOMEN: Soft, nontender, no organomegaly. EXTREMITIES: Has bilateral in the dressing, no edema. NEUROLOGIC: Awake and alert, follows simple command. MEDICATIONS: He is on albuterol/Atrovent nebulizer p.r.n. basis, bacitracin ointment to affected area, Brovana inhaled twice a day, Claritin 10 mg daily, Lipitor 10 mg daily, prednisone 20 mg daily, Protonix 20 mg daily, Pulmicort inhaled twice a day, Remeron 15 mg daily, Singulair 10 mg daily, Xanax 0.25 mg at bedtime, Zestril 5 mg daily, Zoloft 50 mg daily. LABORATORY DATA: Reviewed. No new lab is available since yesterday. Has a CT of the head was done secondary to fall, which is unremarkable. IMPRESSION AND PLAN: Chronic obstructive lung disease, interstitial infiltrate, lung nodule, sleep apnea syndrome, noncompliant with CPAP, history of sleep apnea, pulmonary hypertension, gastroesophageal reflux disease, depression, anxiety disorder, hyperlipidemia. Case discussed with the patient's daughter on the phone. All the questions answered. Also spoke to [employer]. Pulmonary point of view, continue p.o. and inhaled bronchodilator, aspiration precaution. Fall precaution. Will benefit from rehab. Informed daughter about his increased chances of fall. She expressed understanding. Thank you and we will follow with you. Kimmy Gan MD
[2018-03-22 07:12] LABS: HEMOGLOBIN 13.9 g/dL (14.0-18.0); MEAN CELL VOLUME 95.2 fl (80.0-105.0); MEAN CORPUSCULAR HEMOGLOBIN 31.7 pg (25.0-35.0); MEAN CORPUSCULAR HGB CONC 33.3 g/dl (31.0-37.0); MEAN PLATELET VOLUME 9.5 fl (7.0-11.0); RBC 4.39 10^6/uL (3.5-6.1); RED CELL DISTRIBUTION WIDTH 13.2 % (11.5-14.5); WHITE BLOOD COUNT 12.5 10^3/ul (4.5-11.0)
[2018-03-22 07:27] LABS: BLOOD UREA NITROGEN 14 mg/dL (7-21); CALCIUM 8.9 mg/dL (8.4-10.5); GFR NON-AFRICAN AMERICAN > 60
[2018-03-22] MEDS: Arformoterol 15 mcg/2 ml Inh Sol IH SCH ×2 (08:39→19:31)
[2018-03-22] MEDS: Budesonide 0.5 mg/2 ml Inhal Susp UD IH SCH ×2 (08:39→19:31)
[2018-03-22] MEDS: Bacitracin Ointment 30 GM TUBE TOP SCH (09:53)
[2018-03-22] MEDS: Pantoprazole 20 mg EC Tab PO SCH (09:53)
--- NOTE | 2018-03-22 15:49 | PN ---
DATE: 03/22/2018 PULMONARY PROGRESS NOTE REFERRING PHYSICIAN: Jennifer Brown MD. SUBJECTIVE: He is out of bed to chair. Daughter, Isidra is at bedside. Night was unremarkable. Noted yesterday, he has a fall, has an abrasion on the both knees. Hypoxemia when he walks. No nausea. No vomiting. No diarrhea. No significant leg swelling. OBJECTIVE: GENERAL: In no acute distress. VITAL SIGNS: Temperature is 98, heart rate is 77, respiratory rate is 18, blood pressure 131/75, pulse ox 96% on 2 L nasal cannula. HEENT: Moist mucous membrane. Crowded airway. NECK: Supple. No JVD. LUNGS: Have a few crackles at the bases. HEART: S1 and S2. ABDOMEN: Soft, nontender. No organomegaly. EXTREMITIES: Not much edema. NEUROLOGICAL: Awake and alert. Follows simple command. MEDICATIONS: He is on DuoNeb every 6 hours p.r.n., also bacitracin ointment to affected area, Brovana inhaled twice a day, Claritin 10 mg daily, Lipitor 10 mg daily, prednisone 20 mg daily, Protonix 20 mg daily, Pulmicort inhaled twice a day, Remeron 15 mg at bedtime, Singulair 10 mg daily, Xanax 0.25 mg at bedtime, Zestril 5 mg daily, Zoloft 50 mg daily. LABORATORY DATA: Shows hemoglobin 13.9, hematocrit 41.8, WBC 12.5, platelet is 257. Sodium 139, potassium 4.7, chloride 103, bicarbonate 31, BUN 14, creatinine 0.8, glucose 91, calcium is 8.9. Microbiology: 1/2 blood culture has been positive for Staph, but repeat blood cultures are negative. IMPRESSION AND PLAN: Chronic obstructive lung disease; has interstitial infiltrate; nodular infiltrate; had new nodules lately on the CT; sleep apnea precaution; has a sleep apnea syndrome, does not use continuous positive airway pressure though; pulmonary hypertension; history of gastroesophageal reflux disease; depression; anxiety disorder; hyperlipidemia; activities of daily living dysfunction. Spoke to the patient's daughter, Isidra at the bedside. All the questions answered. We will continue supplemental oxygen, p.o. and inhaled bronchodilator, diuretics. Fall precaution. Will benefit from rehabilitation. Thank you and we will follow with you. Kimmy Gan MD [facility] # [id number]
--- NOTE | 2018-03-23 00:54 | PN ---
DATE: 03/22/2018 SUBJECTIVE: The patient was seen and examined at the bedside on 03/22/2018, looking comfortable. No nausea, vomiting or diarrhea. Girlfriend was sitting on the bedside. No fever, no chills. No headache, no dizziness. Seen by inspector integrated circuits, Dr. Gan. Has fall yesterday and has abrasions on both knees. PHYSICAL EXAMINATION VITAL SIGNS: Temperature 98, heart rate 77, respiratory rate 18, blood pressure 130/75, pulse oximetry 96% on 2 liters nasal cannula. HEENT: Head: Normocephalic, atraumatic. Eyes: PERRLA. Extraocular muscles intact. Conjunctivae clear. Nose patent. Mucous membranes are moist. NECK: Supple. No carotid bruit, JVD or thyromegaly. CHEST: Bilaterally symmetrical. HEART: S1 and S2 positive. LUNGS: Has a few crackles at the bases. ABDOMEN: Soft. Bowel sounds present. No organomegaly. EXTREMITIES: No edema. No cyanosis. NEUROLOGICAL: The patient is awake and alert. Moving all 4 extremities. No focal deficit. MEDICATIONS: DuoNeb, Brovana, Claritin, Lipitor, prednisone, Protonix, Pulmicort, Remeron, Singulair, Xanax, Zestril, Zoloft. LABORATORY DATA: Hemoglobin 13.9, hematocrit 41.8, white blood cells 7.5, platelets 257. Sodium 139, potassium 4.7, BUN 14, creatinine 0.8. ASSESSMENT AND PLAN: Mr. Ishmael Martínez is an 83-year-old male with chronic obstructive lung disease, has pulmonary infiltrates with a new nodule lately on the CAT scan, sleep apnea precautions, dementia, hard of hearing, sleep apnea syndrome, does not use continuous positive airway pressure, though pulmonary hypertension, gastroesophageal reflux disease, depression, anxiety disorder, hypercholesterolemia. He is not able to do his activities of daily living. Dr. Gan spoke to the patient's daughter at length of time, Isidra, at the bedside. All questions were answered. We will continue supplement oxygen p.o. and inhaled bronchodilators. Fall precautions. Actually, I spoke to Isidra a couple of days ago. She want me to give her father physical therapy and some type of rehab. I tried to get TCU, but because of insurance problem, the patient cannot go to TCU. Then I spoke to social workers and outsole caser if we can get some another subacute rehab that is in the network and accepting the patient because the patient has risk of fall. Today, I had length of time discussion done with patient's girlfriend. All questions answered. We will follow. Jennifer Brown MD
[2018-03-23] MEDS: Pantoprazole 20 mg EC Tab PO SCH (08:20)
[2018-03-23] MEDS: Arformoterol 15 mcg/2 ml Inh Sol IH SCH (08:34)
[2018-03-23] MEDS: Budesonide 0.5 mg/2 ml Inhal Susp UD IH SCH (08:34)
[2018-03-23] MEDS: Bacitracin Ointment 30 GM TUBE TOP SCH (09:30)
[2018-03-23 15:11] VITALS: BP 112/69; PULSE 84; RESP 20; TEMP 97.8; O2SAT 93
--- NOTE | 2018-03-24 06:05 | PN ---
DATE: 03/23/2018 PULMONARY PROGRESS NOTE REFERRING PHYSICIAN: Jennifer Brown MD SUBJECTIVE: He is lying in the bed, head at 45 degrees. Night was unremarkable. No headache. No rhinitis. Mild cough. No nausea, vomiting or diarrhea. No leg pain or leg swelling. OBJECTIVE: GENERAL: In no acute distress. VITAL SIGNS: Temperature 98, heart rate is 84, respiratory rate is 20, blood pressure 112/69, pulse oximetry 93% on 2 liter nasal cannula. HEENT: Moist mucous membrane. Crowded airway. NECK: Supple. No JVD. LUNGS: Have few crackles, scattered rhonchi. HEART: S1 and S2. ABDOMEN: Soft, nontender. No organomegaly. EXTREMITIES: No edema. NEUROLOGICAL: Awake and alert. Follows simple command. MEDICATOINS: Reviewed. No new medication reported. LABORATORY DATA: Reviewed. No new lab is available since yesterday. IMPRESSION AND PLAN: Chronic obstructive lung disease, interstitial lung disease, lung nodule, history of sleep apnea syndrome, refuse to use continuous positive airway pressure, status post fall with skin abrasion on the knees, pulmonary hypertension, history of gastroesophageal reflux disease, depression, anxiety disorder, hyperlipidemia. Pulmonary point of view doing okay. Spoke to patient's daughter day before yesterday in detail. Patient and family including daughter refused further workup, understanding the lung nodule could be cancer. At this age, daughter and patient does not want any aggressive further workup. Continue bronchodilator. Keep head at 45 degrees. Aspiration precaution. Fall precaution. Thank you and we will follow with you. Kimmy Gan MD
== END 2018-03-23 18:33 | disposition home health service (06) | DRG 190 ==
LOC: ED 13:03 → ERH 15:28 → 5RSO 18:43
PROVIDERS: ADMIT Internal Medicine; ATTEND Internal Medicine
DX: J44.1 Chronic obstructive pulmonary disease with (acute) exacerbation (principal); J18.9 Pneumonia, unspecified organism; J44.0 Chronic obstructive pulmonary disease with (acute) lower respiratory infection; I27.20 Pulmonary hypertension, unspecified; G47.33 Obstructive sleep apnea (adult) (pediatric); E61.1 Iron deficiency; E78.00 Pure hypercholesterolemia, unspecified; E78.5 Hyperlipidemia, unspecified; F03.90 Unspecified dementia, unspecified severity, without behavioral disturbance, psychotic disturbance, mood disturbance, and anxiety; F32.89 Other specified depressive episodes; F41.9 Anxiety disorder, unspecified; H91.90 Unspecified hearing loss, unspecified ear; K21.9 Gastro-esophageal reflux disease without esophagitis; M19.90 Unspecified osteoarthritis, unspecified site; R09.02 Hypoxemia; S80.211A Abrasion, right knee, initial encounter; S80.212A Abrasion, left knee, initial encounter; W19.XXXA Unspecified fall, initial encounter; Z91.19 Patient's noncompliance with other medical treatment and regimen; Z91.81 History of falling; R91.8 Other nonspecific abnormal finding of lung field

== ENCOUNTER 2018-06-30 12:04 | Inpatient (IN) | payer MEDICARE ==
[2018-06-30 12:04] VITALS: PULSE 160
[2018-06-30] MEDS ORDERED: Magnesium Sulfate 2 gm/50 ml 2 GM/50 ML BAG IVPB ONE (12:30)
--- NOTE | 2018-06-30 12:36 | ED PDOC ---
Arrival/HPI - General Historian: Patient - History of Present Illness Narrative History of Present Illness (Text): 06/30/18 12:33 83 y/o M with PMHx of COPD on 2L home O2, pulmonary HTN, sleep apnea presents to ED with complaints of SOB thats been ongoing for the past 2 days. Pts family at bedside reports pt has been sob, but refused to visit ER/PMD for the past 2 days. Pt has been taking azithromycin for the past 2 days since the onset of SOB. Family also reports pt had fell 2 days ago along the R hip and sacrum. Family denies hitting head, loc, or seizure like symptoms including tongue biting/urinary incontinence or foaming of the mouth. Denies one sided weakness or facial droop. Upon interview, pt able to speak, and reports shortness of breath. Denies fevers, chills, headache, dizziness, chest pain, palpitations, n/v/c/d/dysuria. PMD: Dr. Brown Journeyman Pipe Welder: Dr. Gan Cardio: Dr. Davis <Molina Frey - Last Filed: 06/30/18 12:33> <Frederick Molina DO - Last Filed: 06/30/18 20:33> - General Chief Complaint: Shortness Of Breath Time Seen by Provider: 06/30/18 12:13 Past Medical History - Provider Review Nursing Documentation Reviewed: Yes - Infectious Disease Hx of Infectious Diseases: None - Tetanus Immunization Tetanus Immunization: Unknown - Cardiac Hx Atrial Fibrillation: Yes Hx Hypertension: Yes - Pulmonary Hx Chronic Obstructive Pulmonary Disease (COPD): Yes - Neurological Hx Paralysis: No - HEENT Other/Comment: bilateral hearing aids - Renal Hx Renal Disorder: No - Endocrine/Metabolic Hx Endocrine Disorders: No - Hematological/Oncological Hx Blood Transfusions: No - Integumentary Hx Cellulitis: Yes - Musculoskeletal/Rheumatological Hx Musculoskeletal Disorders: Yes - Gastrointestinal Hx Gastroesophageal Reflux: Yes Other/Comment: gi bleed - Genitourinary/Gynecological Hx Genitourinary Disorders: No Hx Reproductive Disorders: No - Psychiatric Hx Emotional Abuse: No Hx Physical Abuse: No Hx Substance Use: No - Surgical History Other/Comment: colon sx - Anesthesia Hx Anesthesia Reactions: No Hx Malignant Hyperthermia: No - Suicidal Assessment Feels Threatened In Home Enviroment: No <Molina Frey - Last Filed: 06/30/18 12:33> Family/Social History - Physician Review Nursing Documentation Reviewed: Yes Family/Social History: Unknown Family HX Smoking Status: Never Smoked Hx Alcohol Use: No Hx Substance Use: No Hx Substance Use Treatment: No <Tk,Rayan - Last Filed: 06/30/18 12:33> Allergies/Home Meds <TkMolina - Last Filed: 06/30/18 12:33> <Frederick Molina DO - Last Filed: 06/30/18 20:33> Allergies/Adverse Reactions: Allergies No Known Allergies Allergy (Verified 06/30/18 12:08) Home Medications: Home Meds Medication Instructions Recorded Confirmed Alprazolam [Xanax] 0.25 mg PO HS 03/15/18 05/29/18 Fluticasone/Vilanterol 200/25 1 each PO DAILY 03/15/18 05/29/18 [Breo Ellipta 200-25 Mcg INH] Mirtazapine [Remeron] 15 mg PO DAILY 03/15/18 05/29/18 Sertraline [Zoloft] 50 mg PO DAILY 03/15/18 05/29/18 LORazepam [Ativan] 1 mg PO DAILY 05/29/18 05/29/18 Tiotropium [Spiriva] 18 mcg IH DAILY 05/29/18 05/29/18 Review of Systems - Review of Systems Constitutional: Normal Eyes: Normal ENT: Normal Respiratory: SOB, Wheezing. absent: Cough Cardiovascular: Normal. absent: Chest Pain, Palpitations, Calf Pain, Syncope Gastrointestinal: Normal Genitourinary Male: Normal Musculoskeletal: Normal Skin: Rash (chronic b/l LE cellulitis) Neurological: Normal. absent: Headache, Dizziness, Focal Weakness, Speech Changes, Facial Droop Endocrine: Normal Hemo/Lymphatic: Normal Psychiatric: Normal <Molina Frey - Last Filed: 06/30/18 12:33> Physical Exam Vital Signs Reviewed: Yes Vital Signs Temp Pulse Resp BP Pulse Ox 06/30/18 12:16 98.4 F 101 H 18 117/61 94 L Temperature: Afebrile Blood Pressure: Normal Pulse: Tachycardic Respiratory Rate: Normal Appearance: Positive for: Well-Appearing, Non-Toxic, Comfortable Pain Distress: None Mental Status: Positive for: Alert and Oriented X 3 - Systems Exam Head: Present: Atraumatic, Normocephalic Pupils: Present: PERRL Extroacular Muscles: Present: EOMI Conjunctiva: Present: Normal Mouth: Present: Moist Mucous Membranes Neck: Present: Normal Range of Motion Respiratory/Chest: Present: Wheezes. No: Accessory Muscle Use, Rales, Rhonchi Cardiovascular: Present: Normal S1, S2, Tachycardic. No: Murmurs Abdomen: No: Tenderness, Distention, Peritoneal Signs Back: Present: Normal Inspection Upper Extremity: Present: Normal Inspection. No: Cyanosis, Edema Lower Extremity: Present: Neurovascularly Intact, Other (chronic skin changes). No: Edema, CALF TENDERNESS, Swelling Neurological: Present: GCS=15, CN II-XII Intact, Speech Normal Skin: Present: Warm, Dry, Rashes (b/l LE chronic skin ulcerations), Normal Color Psychiatric: Present: Alert, Oriented x 3, Normal Insight, Normal Concentration <Molina Frey - Last Filed: 06/30/18 12:33> Vital Signs Temp Pulse Resp BP Pulse Ox 06/30/18 12:16 98.4 F 101 H 18 117/61 94 L 06/30/18 12:10 18 <Frederick Molina DO - Last Filed: 06/30/18 20:33> Medical Decision Making ED Course and Treatment: 06/30/18 12:42 Impression: 83 y/o M with PMHx of COPD on 2L home O2, pulm HTN, sleep apnea presents to ED with SOB thats been ongoing for the past 2 days Prior notes and results have been reviewed Differential diagnosis includes but is not limited to : COPD exacerbation Plan: Duoneb q15m IV Mg Solumedrol IVP Labs Rapid flu EKG Chest xray Reassess & dispo Progress Notes: - RAD Interpretation Radiology Orders: 06/30/18 12:25 CHEST PORTABLE [RAD] Stat - EKG Interpretation EKG Interpretation (Text): 06/30/18 12:42 Sinus tachycardia HR: 103 bpm QTc: 450ms - Medication Orders Current Medication Orders: Albuterol/Ipratropium (Duoneb 3 Mg/0.5 Mg (3 Ml) Ud) 3 ml IH Q15M JESE Stop: 06/30/18 13:01 Magnesium Sulfate (Magnesium Sulfate 2 Gm/50 Ml Water) 2 gm in 50 mls @ 50 mls/hr IVPB ONCE ONE Stop: 06/30/18 13:29 Discontinued Medications Methylprednisolone (Solu-Medrol) 125 mg IVP STAT STA Stop: 06/30/18 12:31 <Molina Frey - Last Filed: 06/30/18 12:33> ED Course and Treatment: 06/30/18 12:53 Patient is an 83 year old male presenting to the emergency department complaining of shortness of breath. In agreement with resident note, which includes further HPI details. Patient was seen and evaluated with resident, came up with plan and treatment together. - RAD Interpretation Radiology Orders: 06/30/18 12:25 CHEST PORTABLE [RAD] Stat - Medication Orders Current Medication Orders: Albuterol/Ipratropium (Duoneb 3 Mg/0.5 Mg (3 Ml) Ud) 3 ml IH Q15M JESE Stop: 06/30/18 13:01 Magnesium Sulfate (Magnesium Sulfate 2 Gm/50 Ml Water) 2 gm in 50 mls @ 50 mls/hr IVPB ONCE ONE Stop: 06/30/18 13:29 Discontinued Medications Methylprednisolone (Solu-Medrol) 125 mg IVP STAT STA Stop: 06/30/18 12:31 <Frederick Molina DO - Last Filed: 06/30/18 20:33> - PA / INPATIENT PHARMACIST / Resident Statement SHANIKA has reviewed & agrees with the documentation as recorded. SHANIKA has examined the patient and agrees with the treatment plan. <Molina Frey - Last Filed: 06/30/18 12:33> - PA / INPATIENT PHARMACIST / Resident Statement SHANIKA has reviewed & agrees with the documentation as recorded. SHANIKA has examined the patient and agrees with the treatment plan. - Scribe Statement The provider has reviewed the documentation as recorded by the Deann Gomez All medical record entries made by the Deann were at my direction and personally dictated by me. I have reviewed the chart and agree that the record accurately reflects my personal performance of the history, physical exam, medical decision making, and the department course for this patient. I have also personally directed, reviewed, and agree with the discharge instructions and disposition. <Frederick Molina DO - Last Filed: 06/30/18 20:33> Disposition/Present on Arrival - Present on Arrival Any Indicators Present on Arrival: No History of DVT/PE: No History of Uncontrolled Diabetes: No Urinary Catheter: No History of Decub. Ulcer: No History Surgical Site Infection Following: None <Molina Frey - Last Filed: 06/30/18 12:33> - Disposition Have Diagnosis and Disposition been Completed?: Yes Disposition Time: 13:30 <Frederick Molina DO - Last Filed: 06/30/18 20:33> - Disposition Diagnosis: COPD exacerbation Disposition: HOSPITALIZED Patient Problems: Current Active Problems Problem Status Onset COPD exacerbation Acute Condition: STABLE
[2018-06-30] MEDS: Albuterol-Ipratrop 3 mg / 0.5 (3 ml) UD IH SCH ×3 (12:45→13:00)
--- NOTE | 2018-06-30 12:48 | RAD ---
Date of service: 06/30/2018 HISTORY: SOB COMPARISON: 03/15/2018 FINDINGS: LUNGS: No active pulmonary disease. PLEURA: No significant pleural effusion identified, no pneumothorax apparent. CARDIOVASCULAR: No aortic atherosclerotic calcification present. Normal cardiac size. Moderate vascular and interstitial congestion OSSEOUS STRUCTURES: No significant abnormalities. VISUALIZED UPPER ABDOMEN: Normal. OTHER FINDINGS: None. IMPRESSION: Moderate vascular and interstitial congestion
[2018-06-30 13:09] LABS: BASO # 0.04 K/mm3 (0.0-2.0); BASO % 0.5 % (0.0-3.0); EOS % 0.1 % (1.5-5.0); GRAN # 5.95 (1.4-6.5); GRAN % 73.2 % (50.0-68.0); HEMOGLOBIN 15.2 g/dL (14.0-18.0); LYMPH # 1.4 (1.2-3.4); LYMPH % 17.5 % (22.0-35.0); MEAN CELL VOLUME 94.9 fl (80.0-105.0); MEAN CORPUSCULAR HEMOGLOBIN 30.7 pg (25.0-35.0); MEAN CORPUSCULAR HGB CONC 32.3 g/dl (31.0-37.0); MEAN PLATELET VOLUME 9.6 fl (7.0-11.0); MONO # 0.7 (0.1-0.6); MONO % 8.7 % (1.0-6.0); RBC 4.95 10^6/uL (3.5-6.1); RED CELL DISTRIBUTION WIDTH 13.1 % (11.5-14.5); WHITE BLOOD COUNT 8.1 10^3/uL (4.5-11.0)
[2018-06-30 13:16] LABS: ALB/GLOB RATIO 1.3 (1.1-1.8); ALBUMIN 4.1 g/dL (3.0-4.8); ALT/SGPT 30 U/L (7-56); AST/SGOT 43 U/L (17-59); BLOOD UREA NITROGEN 16 mg/dL (7-21); GFR NON-AFRICAN AMERICAN > 60
[2018-06-30 13:27] LABS: B-TYPE NATRIURETIC PEPTIDE 994 pg/mL (0-450); TROPONIN I 0.05 ng/mL
--- NOTE | 2018-06-30 14:41 | RAD ---
PROCEDURE: Right Hip and pelvis radiographs. HISTORY: s/p fall r/o fx COMPARISON: None. FINDINGS: BONES: Normal. No fracture. JOINTS: Normal. SOFT TISSUES: Normal. OTHER FINDINGS: None. IMPRESSION: Negative study
[2018-06-30] MEDS ORDERED: Potassium Chloride 20 mEq ER Tab PO STA (17:26)
[2018-06-30] MEDS ORDERED: Enoxaparin 40 mg Syringe SC STA (17:27)
[2018-06-30] MEDS ORDERED: Azithromycin 500MG/NS 250ml 500 MG/250 ML BAG IVPB STA (17:29)
--- NOTE | 2018-06-30 20:00 | CARD ---
APPROVED REPORT Date of service: 06/30/2018 EKG Measurement Heart [id number] <Conclusion> Sinus tachycardia Otherwise normal ECG
[2018-06-30 21:41] VITALS: BMI 23.1
[2018-06-30] MEDS ORDERED: Pneumococcal 23-Valent Vaccine IM ONE (21:42)
[2018-06-30] MEDS ORDERED: Influenza Vaccine 60 mcg/0.5 mL SYR (4YR UP) IM ONE (21:42)
--- NOTE | 2018-06-30 23:44 | CON ---
DATE: 06/30/2018 REASON FOR CONSULTATION: Followup cardiac evaluation and admitted with shortness of breath. BRIEF CLINICAL HISTORY: This is an 83-year-old male with past medical history significant for COPD, on home oxygen 2 L; history of pulmonary hypertension; history of sleep apnea; and came to the emergency room because of progressively worsening shortness of breath for the last 3 days. The patient supposed to go to the PMD this morning where the situation got worse at home and according to the fiance who lives with the patient says that he got more short of breath, so they decided to come to the emergency room. Denies any chest pain. Denies any shortness of breath. Denies any palpitation. The patient says that heart is good, no complaint of chest pain, but get short of breath progressively worsening. History of nonobstructive coronary artery disease, history of COPD, history of ex-smoker, obesity and sleep apnea as well as pulmonary hypertension, and history of paroxysmal atrial fibrillation in the past. Previous echocardiograms in 2012 shows an LV function, ejection fraction 60-65%, mild mitral regurgitation, [id number] tricuspid regurgitation. Previous stress test on 12/22/2012 shows normal myocardial perfusion study, no evidence of ischemia. The patient had cardiac catheterization following a stress test on 01/23/2015 that was abnormal, partial reversible apical defect dated 01/23/2015, there is a new perfusion defect since 12/25/2012. Following this, the patient had a cardiac catheterization done on 03/17/2015 that showed nonobstructive coronary artery disease, limited only to very distal LAD 55% non-flow limiting and diffusely diseased, preserved LV function, ejection fraction 65-70%, and EDP was in the range of 15 mmHg. Medical treatment recommended including modification of lifestyle, modification of risk factor, and continue baby aspirin 81 mg daily. The patient has recent another repeat echo dated 03/17/2018 that showed normal LV function, no segmental wall motion abnormality, early diastolic dysfunction, moderate tricuspid regurgitation, severe pulmonary hypertension, read by Dr. Morton dated 03/17/2018, and RVSP reported 67%. No mitral regurgitation reported. Moderate tricuspid regurgitation reported as well as calculated ejection fraction reported 65%. CT chest 03/17/2018 progression of interstitial lung disease noted and some consolidative changes with chronic process noted consistent with interstitial fibrosis possibly. The patient had recent repeat stress test on 05/29/2018 that showed probably abnormal myocardial perfusion study partially reversible apical defect suspicious for ischemia when compared from 01/23/2015. There is improvement in distal apical defect and partial reversible inferior defect appears new. The patient had a Holter monitor dated 05/29/2018 that shows sinus rhythm with sinus bradycardia, sinus tachycardia, minimum heart rate 52, maximum heart rate 152, rare APCs. Minimum heart rate at 2 a.m. was 52 and maximum heart rate 121 at 8 p.m. Stress test unchanged from 2014 that the patient had a cardiac catheterization that was mild nonobstructive coronary artery disease. CURRENT MEDICATIONS: The patient is taking Spiriva 18 mcg daily, Zoloft 50 mg daily, Protonix mg daily, lorazepam 1 mg daily, and Xanax 0.25 mg daily. ALLERGIES: NO KNOWN DRUG ALLERGIES. REVIEW OF SYSTEMS: As per HPI. PHYSICAL EXAMINATION: VITAL SIGNS: As follows; height of the patient is 5 feet 7 inches, weight of the patient 148 pounds, and body mass index 24 kg/m2. Temperature afebrile, heart rate 101 and blood pressure 124/62. HEENT: PERRLA. Extraocular muscles intact. NECK: Supple. No carotid bruit. No thyromegaly. CHEST: Scattered rhonchi and few coarse crackle noted, but rhonchi is more prominent. HEART: S1 and S2 regular. ABDOMEN: Soft. EXTREMITIES: Clubbing and cyanosis negative. Trace pedal edema noted. LABORATORY DATA: Blood workup: WBC 8.1, hemoglobin 15.2, hematocrit 47, and platelet count 147. Chemistry shows sodium 139, potassium 4, chloride 105, carbon dioxide 27, anion gap of 10, BUN 16, and creatinine 1. Troponin is 0.05. BNP is 994. EKG shows normal sinus, poor R-wave progression, but no acute ST-T changes noted. Chest x-ray reviewed. AP films poor penetration possible, mild congestion, but poor underpenetrated film. Official reading on chest x-ray read moderate vascular congestion with interstitial changes noted. IMPRESSION: An 83-year-old male with past medical history with extensive history of chronic obstructive pulmonary disease; pulmonary fibrosis; pulmonary hypertension; diabetes; hyperlipidemia; ex-smoker, on home oxygen; history of nonobstructive coronary artery disease, status post cardiac catheterization in 2014 following abnormal stress test where recently an echo done preserved left ventricular function, no mitral regurgitation, moderate tricuspid regurgitation, right ventricular systolic pressure of 67, admitted with progressively worsening shortness of breath possibly acute exacerbation of chronic obstructive pulmonary disease and early pneumonia cannot be ruled out, though the patient has some vascular congestion possibly with diastolic dysfunction. RECOMMENDATIONS: We will continue aggressive treatment for COPD, start some diuretics, keep the patient dry and negative fluid balance. We will get lipid profile and TSH. Follow up serial CPK and troponin. Further recommendation depending upon the hospital course. We will follow with you. Thank you Dr. Brown for providing us the opportunity in taking care of the patient, Ishmael Martínez. Kimmy Ceballos MD
--- NOTE | 2018-07-01 01:33 | HP ---
DATE OF EXAM: 06/30/2018 The patient was seen and examined at the bedside on 06/30/2018 in the emergency room. CHIEF COMPLAINT: Shortness of breath and coughing. HISTORY OF PRESENT ILLNESS: Mr. Ishmael Martínez is an 83-year-old male with past medical history of COPD, on 2L home oxygen; pulmonary hypertension; sleep apnea syndrome; came to the emergency room with complaining of shortness of breath that has been going on for past 2 days. The patient's family at bedside reports that the patient has had shortness of breath, but refused to go to ER. Actually, they called my office two days ago and I prescribed azithromycin for the past 2 days since the onset of shortness of breath, coughing of phlegm. reports that the patient had a fall 2 days ago along with right hip and sacrum. Family denies hitting head, loss of consciousness, seizure-like symptoms including tongue bite, urinary incontinence, fever, chills. No nausea, vomiting, or diarrhea. No hematuria or hematochezia. No dizziness. No chest pain. No palpitations. PAST MEDICAL HISTORY: Atrial fibrillation, hypertension, COPD, and history of cellulitis. FAMILY HISTORY: Father and mother noncontributory. HABITS: Never smoked. No drug. No ethanol. ALLERGIES: THE PATIENT IS NOT ALLERGIC WITH ANY MEDICATIONS. HOME MEDICATIONS: Xanax, fluticasone plus Vilanterol, Remeron, Zoloft, Ativan, and Spiriva. REVIEW OF SYSTEMS: The patient was seen and examined at the bedside in the ER, girlfriend was sitting on the bedside also. Complaining about shortness of breath, wheezing, and coughing. No chest pain. No palpitations. No calf tenderness. No syncope. No nausea, vomiting, or diarrhea. No headache. No dizziness. No focal weakness. No speech changes. No facial droop. PHYSICAL EXAMINATION: VITAL SIGNS: Temperature 98.4, pulse 101, respiratory rate 18, blood pressure 170/61, and pulse oximetry 94. HEENT: Head; normocephalic and atraumatic. Eyes; PERRLA. Extraocular muscles intact. Conjunctivae clear. Nose patent. NECK: Supple. No carotid bruits, JVD, or thyromegaly. CHEST: Bilaterally symmetrical. HEART: S1 and S2 positive. LUNGS: Wheezing bilaterally. No accessory muscle using. ABDOMEN: Soft and nontender. No organomegaly. EXTREMITIES: No cyanosis. No edema. On the legs, there are chronic skin changes. NEUROLOGIC: The patient is awake and alert. Follows simple commands. LABORATORY DATA: White blood cell count 8.1, hemoglobin 15.2, hematocrit 47, and platelets 147. Sodium 139, potassium 4, BUN 16, and creatinine 1. Glucose 121. Lactate dehydrogenase 844. Influenza type A and B is negative. ASSESSMENT AND PLAN: Mr. Ishmael Martínez is an 83-year-old came in with bronchitis, coughing, shortness of breath, partially treated, completed a course of Zithromax as outpatient, and history of fall. Hip and pelvis x-ray done, reviewed by me. Chest x-ray done, moderate vascular and interstitial congestion, history of pulmonary hypertension, chronic obstructive pulmonary disease, on 2 L home oxygen, sleep apnea syndrome, history of atrial fibrillation, and hypertension. This shortness of breath is ongoing from couple of days. Solu-Medrol given. Rapid flu test done. We will consult with cigar head perforator and the patient's elevator troubleshooter. Shortness of breath improved. Gastrointestinal and deep venous thrombosis prophylaxes. Repeat labs. Final diagnosis, chronic obstructive pulmonary disease exacerbation. We will follow up. Jennifer Bronw MD MTDD
[2018-07-01] MEDS: Albuterol-Ipratrop 3 mg / 0.5 (3 ml) UD IH SCH ×4 (02:00→19:20)
[2018-07-01 07:03] LABS: BASO # 0.01 K/mm3 (0.0-2.0); BASO % 0.1 % (0.0-3.0); GRAN # 12.35 (1.4-6.5); GRAN % 86.6 % (50.0-68.0); HEMOGLOBIN 14.8 g/dL (14.0-18.0); LYMPH % 6.9 % (22.0-35.0); MEAN CELL VOLUME 94.6 fl (80.0-105.0); MEAN CORPUSCULAR HEMOGLOBIN 30.8 pg (25.0-35.0); MEAN CORPUSCULAR HGB CONC 32.6 g/dl (31.0-37.0); MEAN PLATELET VOLUME 9.7 fl (7.0-11.0); MONO # 0.9 (0.1-0.6); MONO % 6.4 % (1.0-6.0); RBC 4.8 10^6/uL (3.5-6.1); RED CELL DISTRIBUTION WIDTH 13.1 % (11.5-14.5); WHITE BLOOD COUNT 14.3 10^3/uL (4.5-11.0)
[2018-07-01 07:15] LABS: LDL CHOLESTEROL 98 mg/dL (0-129)
[2018-07-01 07:24] LABS: ALB/GLOB RATIO 1.2 (1.1-1.8); ALBUMIN 3.7 g/dL (3.0-4.8); ALT/SGPT 22 U/L (7-56); AST/SGOT 36 U/L (17-59); BLOOD UREA NITROGEN 20 mg/dL (7-21); CALCIUM 8.9 mg/dL (8.4-10.5); GFR NON-AFRICAN AMERICAN > 60; HDL CHOLESTEROL 36 mg/dL (29-60)
[2018-07-01] MEDS: Pantoprazole 20 mg EC Tab PO SCH (07:55)
[2018-07-01] MEDS: BREO ELLIPTA PO SCH (10:00)
--- NOTE | 2018-07-01 10:03 | RAD ---
Date of service: 07/01/2018 HISTORY: F/U pneumonia and compare COMPARISON: June 30, 2018. 03/17/2018 CT thorax 06/05/2014 single-view chest. TECHNIQUE: Chest PA and lateral FINDINGS: LUNGS: Chronic interstitial lung disease. Hyperinflation/manifestations of COPD. PLEURA: No significant pleural effusion identified. No pneumothorax apparent. CARDIOVASCULAR: No aortic atherosclerotic calcification present. Normal cardiac size. No pulmonary vascular congestion. OSSEOUS STRUCTURES: No significant abnormalities. VISUALIZED UPPER ABDOMEN: Normal. OTHER FINDINGS: None. IMPRESSION: Chronic interstitial lung disease. No acute/superimposed findings.
--- NOTE | 2018-07-01 10:43 | CP.PCM.PN ---
Subjective - Date & Time of Evaluation Date of Evaluation: 07/01/18 Time of Evaluation: 06:55 - Subjective Subjective: Awake, no distress Reason for consultation and follow up: Cardiac evaluation of shortness of breath, history of COPD on home oxygen,pulmonary HTN, sleep apnea Seen and examined by me and Dr. Davis Objective - Vital Signs/Intake and Output Vital Signs (last 24 hours): Temp Pulse Resp BP Pulse Ox 97.8 F 91 H 20 122/70 94 L 07/01/18 09:00 07/01/18 09:00 07/01/18 09:00 07/01/18 09:00 07/01/18 09:00 - Medications Medications: Current Medications Acetaminophen (Tylenol 325mg Tab) 650 mg PO Q4H PRN PRN Reason: pain fever Albuterol/Ipratropium (Duoneb 3 Mg/0.5 Mg (3 Ml) Ud) 3 ml IH [id number] JESE Last Admin: 07/01/18 08:13 Dose: 3 ml Alprazolam (Xanax) 0.25 mg PO HS [facility]; Protocol Last Admin: 06/30/18 22:21 Dose: 0.25 mg Famotidine (Pepcid) 40 mg PO HS [facility] Furosemide (Lasix) 40 mg IVP DAILY [facility] Azithromycin (Zithromax 500mg In Ns) 500 mg in 250 mls @ 167 mls/hr IVPB DAILY [facility]; Protocol Methylprednisolone (Solu-Medrol) 40 mg IVP Q12 [facility] Metoprolol Tartrate (Lopressor) 25 mg PO BID [facility] Mirtazapine (Remeron) 15 mg PO HS [facility] Last Admin: 06/30/18 22:21 Dose: 15 mg Breo Ellipta 200-25 (Mcg Inh (Home Med)) 1 each PO DAILY [facility] Pantoprazole Sodium (Protonix Ec Tab) 20 mg PO ACB [facility] Last Admin: 07/01/18 07:55 Dose: 20 mg Sertraline HCl (Zoloft) 50 mg PO DAILY [facility] Tiotropium [place] (Spiriva) 18 mcg IH DAILY [facility] - Labs Labs: 07/01/18 05:30 07/01/18 05:30 - Constitutional Appears: Non-toxic, No Acute Distress - Head Exam Head Exam: NORMAL INSPECTION, NORMOCEPHALIC - Eye Exam Eye Exam: Normal appearance - ENT Exam ENT Exam: Mucous Membranes Moist Additional comments: hard of hearing with hearing aide - Respiratory Exam Respiratory Exam: Decreased Breath Sounds, NORMAL BREATHING PATTERN - Cardiovascular Exam Cardiovascular Exam: REGULAR RHYTHM, +S1, +S2 - GI/Abdominal Exam GI & Abdominal Exam: Soft, Normal Bowel Sounds - Extremities Exam Extremities Exam: Full ROM - Neurological Exam Neurological Exam: Alert, Awake - Psychiatric Exam Psychiatric exam: Normal Affect, Normal Mood - Skin Skin Exam: Dry, Normal Color, Warm Assessment and Plan - Assessment and Plan (Free Text) Assessment: An 83 year old male who came in to the ER due to shortness of breath for the past few days. History of COPD on 2L home O2, pulmonary HTN, sleep apnea,non- obstructive coronary artery disease, ex-smoker,atrial fibrillation, diabetes, hyperlipidemia. Denies chest pain. Exacerbation of COPD. Chest x ray today showed chronic interstitial lung disease, negative for pneumonia. no vascular congestion. Plan: No distress Controlled blood pressure Controlled heart rate, telemetry NSR On Lasix 40 mg daily, Solumedrol 40 mg BID, Lopressor 25 mg BID Continue current treatment Continue current medications Continue IV antibiotics as ordered Lovenox for DVT prophylaxis Will follow up Plan and treatment discussed with Dr. Davis
[2018-07-01] MEDS: Tiotropium 18 mcg Cap For Inhalation IH SCH (10:49)
[2018-07-01] MEDS: Azithromycin 500MG/NS 250ml 500 MG/250 ML BAG IVPB SCH (10:50)
[2018-07-01] MEDS: MethylPREDNISolone 40 mg Vial IVP SCH ×2 (10:50→21:38)
[2018-07-01] MEDS ORDERED: Albuterol-Ipratrop 3 mg / 0.5 (3 ml) UD IH PRN (17:25)
[2018-07-01] MEDS: Enoxaparin 40 mg Syringe SC SCH (18:05)
--- NOTE | 2018-07-01 18:36 | CON ---
DATE: 07/01/2018 PULMONARY CONSULT NOTE REFERRING PHYSICIAN: Jennifer Brown MD REASON FOR CONSULT: COPD, sleep apnea. HISTORY OF PRESENT ILLNESS: This is an 83-year-old male known to us from previous admissions who presented to the emergency room complaining of shortness of breath for past two days. The patient was on antibiotic therapy for the past two days since the shortness of breath began. The patient also had a fall two days ago prior to coming to the emergency department. Family denies the patient hitting his head, losing consciousness or seizure like symptoms when fall occurred. PAST MEDICAL HISTORY: Atrial fibrillation, hypertension, COPD, history of cellulitis, obstructive sleep apnea syndrome, noncompliant to CPAP use, degenerative joint disease, gastroesophageal reflux disease, history of inguinal hernia, depression, hyperlipidemia, pulmonary hypertension. ALLERGIES: NO KNOWN ALLERGIES. SOCIAL HISTORY: Never smoked. No EtOH abuse. No illicit drug use. FAMILY HISTORY: No significant cardiopulmonary disease reported. MEDICATIONS: Tylenol 650 every 4 hours p.r.n., DuoNeb 3 mL inhalation every 6 hours, Xanax 0.25 mg at bedtime, Zithromax 500 mg daily, Lovenox 40 mg daily, Pepcid 40 mg at bedtime, Lasix 40 mg daily, Solu-Medrol 40 mg every 12 hours, Lopressor 25 mg twice a day, Remeron 30 mg at bedtime, Protonix 20 mg daily, Zoloft 50 mg daily, Spiriva 18 mcg daily. REVIEW OF SYSTEMS: No headache, rhinitis, chest pain, abdominal pain, nausea, vomiting, diarrhea, leg pain or leg swelling reported. Reports shortness of breath, mild cough. PHYSICAL EXAMINATION: GENERAL: In no acute distress. VITAL SIGNS: Blood pressure 122/70, pulse 91, temperature 97.8and oxygen saturation 94%. HEENT: Moist mucous membranes. Crowded airway. Mallampati score is 4. NECK: Supple. No JVD. LUNGS: Wheezing and rhonchi bilaterally. CARDIOVASCULAR: S1 and S2. ABDOMEN: Soft and nontender. No distention. No organomegaly. EXTREMITIES: No bilateral lower extremity edema. NEUROLOGIC: Awake, alert, and verbal. Follows commands. LABORATORY DATA: Reviewed. WBC 14.3, RBC 4.8, hemoglobin 14.8, hematocrit 45.4, and platelets 161. Sodium 143, potassium 4, chloride 107, carbon dioxide 29, anion gap 12, BUN 20, creatinine 0.9, GFR greater than 60, random glucose 128, calcium 8.9, phosphorus 8.3, magnesium 2.3. Total bilirubin 0.7, AST 36, ALT 22, alkaline phosphatase 73, total protein 6.8, albumin 3.7, globulin 3.1, albumin-globulin ration 1.2, triglycerides 75, cholesterol 156, LDL cholesterol direct 98, HDH cholesterol 36, TSH 1.36. Influenza type A and B negative. DIAGNOSTIC DATA: Electrocardiogram shows sinus tachycardia. Hip and pelvic x-rays, negative study, no fracture. Chest x-ray shows chronic interstitial lung disease. No acute or superimposed findings. IMPRESSION AND PLAN: Chronic obstructive pulmonary disease exacerbation, history of sleep apnea syndrome, gastroesophageal reflux disease, depression, anxiety, obstructive sleep apnea syndrome, history of pulmonary hypertension, history of atrial fibrillation, hypertension. Continue gastric prophylaxis, deep venous thrombosis prophylaxis. We will order swallow evaluation, rule out dysphagia. Keep head of bed elevated at 45 degrees. Continue antibiotic therapy. Continue steroids. Continue diuretics. Echocardiogram from 03/17/2018 reviewed and shows ejection fraction of 65%, RVSP 67. Continue inhaled bronchodilators. We will do swallow evaluation to show there is no chronic aspiration. This patient was seen and examined with Dr. Gan. Discussed assessment and plan as described above. Thank you for this consult. We will follow. Rubén Patel APN Kimmy Gan MD
[2018-07-01] MEDS: Budesonide 0.5 mg/2 ml Inhal Susp UD IH SCH (19:20)
--- NOTE | 2018-07-01 22:47 | PN ---
DATE: 07/01/2018 SUBJECTIVE: The patient is an 83-year-old male. The patient was seen and examined at the bedside on 07/01/2018, looking comfortable. No fever. No chills. No shortness of breath. No headache. No dizziness. No chest pain. No palpitations. No rhinitis. No abdominal pain. No nausea, vomiting, or diarrhea. Shortness of breath is better. PHYSICAL EXAMINATION VITAL SIGNS: Temperature 98.1, pulse 90, blood pressure 122/70, oxygenation 94%, and respiratory rate 18. HEENT: Head; normocephalic, atraumatic. Eyes; PERRLA. Extraocular muscles are intact. Conjunctivae are clear. Nose patent. Mucous membranes moist. NECK: Supple. No carotid bruit. No JVD or thyromegaly. CHEST: Bilateral symmetrical. HEART: S1 and S2 positive. LUNGS: Clear to auscultation. ABDOMEN: Soft. Bowel sounds positive. No organomegaly. EXTREMITIES: No edema. No cyanosis. NEUROLOGIC: The patient is awake and alert. Follows simple commands. LABORATORY DATA: White blood cells noted , hematocrit 45.4, and platelets 161. Sodium 143, potassium 4, BUN 20, creatinine 0.9, glucose 128, magnesium 23. ALT 22 and AST 36. ASSESSMENT AND PLAN: Mr. Ishmael Martínez is an 83-year-old male with multiple medical problems, has atrial fibrillation, hypertension, hypercholesterolemia, came with exacerbation of chronic obstructive pulmonary disease, history of cellulitis, obstructive sleep apnea syndrome, noncompliant with continuous positive airway pressure use, degenerative joint disease, gastroesophageal reflux disease, history of inguinal hernia,depression, pulmonary hypertension. Failed outpatient treatment ,got treatment from my office, but the patient is not improving. Continue antibiotic therapy. Continue steroids. Continue inhaled bronchodilators. Appreciated delinquency prevention officer input. Repeat labs. We will follow up. Jennifer Brown MD VIVI
[2018-07-02] MEDS: Albuterol-Ipratrop 3 mg / 0.5 (3 ml) UD IH SCH ×4 (01:27→20:10)
--- NOTE | 2018-07-02 07:53 | CP.PCM.PN ---
Subjective - Date & Time of Evaluation Date of Evaluation: 07/02/18 Time of Evaluation: 07:00 - Subjective Subjective: Lying in bed, no distress,awake Reason for consultation and follow up: Cardiac evaluation of shortness of breath, history of COPD on home oxygen,pulmonary HTN, sleep apnea ,admitted for exacerbation of COPD. Seen and examined by me and Dr. Davis Objective - Vital Signs/Intake and Output Vital Signs (last 24 hours): Temp Pulse Resp BP Pulse Ox 98.2 F 95 H 20 147/86 94 L 07/02/18 07:39 07/02/18 07:39 07/02/18 07:39 07/02/18 07:39 07/02/18 07:39 - Medications Medications: Current Medications Acetaminophen (Tylenol 325mg Tab) 650 mg PO Q4H PRN PRN Reason: pain fever Last Admin: 07/01/18 12:03 Dose: 650 mg Albuterol/Ipratropium (Duoneb 3 Mg/0.5 Mg (3 Ml) Ud) 3 ml IH [id number] JESE Last Admin: 07/02/18 01:27 Dose: 3 ml Albuterol/Ipratropium (Duoneb 3 Mg/0.5 Mg (3 Ml) Ud) 3 ml IH Q2H PRN PRN Reason: Shortness of Breath Alprazolam (Xanax) 0.25 mg PO HS JESE; Protocol Last Admin: 07/01/18 21:39 Dose: 0.25 mg Budesonide (Pulmicort Respules) 0.5 mg IH [id number] JESE Last Admin: 07/01/18 19:20 Dose: 0.5 mg Enoxaparin Sodium (Lovenox) 40 mg SC DAILY JESE; Protocol Last Admin: 07/01/18 18:05 Dose: 40 mg Famotidine (Pepcid) 40 mg PO HS JESE Last Admin: 07/01/18 21:39 Dose: 40 mg Furosemide (Lasix) 40 mg IVP DAILY [facility] Last Admin: 07/01/18 10:50 Dose: 40 mg Azithromycin (Zithromax 500mg In Ns) 500 mg in 250 mls @ 167 mls/hr IVPB DAILY [facility]ESE; Protocol Last Admin: 07/01/18 10:50 Dose: 167 mls/hr Methylprednisolone (Solu-Medrol) 40 mg IVP Q12 JESE Last Admin: 07/01/18 21:38 Dose: 40 mg Metoprolol Tartrate (Lopressor) 25 mg PO BID [facility] Last Admin: 07/01/18 18:04 Dose: 25 mg Mirtazapine (Remeron) 15 mg PO HS [facility] Last Admin: 07/01/18 21:39 Dose: 15 mg Breo Ellipta 200-25 (Mcg Inh (Home Med)) 1 each PO DAILY [facility] Last Admin: 07/01/18 10:00 Dose: Not Given Pantoprazole Sodium (Protonix Ec Tab) 20 mg PO ACB [facility] Last Admin: 07/01/18 07:55 Dose: 20 mg Sertraline HCl (Zoloft) 50 mg PO DAILY [facility] Last Admin: 07/01/18 10:49 Dose: 50 mg Tiotropium [place] (Spiriva) 18 mcg IH DAILY [facility] Last Admin: 07/01/18 10:49 Dose: 18 mcg - Labs Labs: 07/01/18 05:30 07/01/18 05:30 - Constitutional Appears: Non-toxic, No Acute Distress - Eye Exam Eye Exam: Normal appearance Pupil Exam: NORMAL ACCOMODATION - ENT Exam ENT Exam: Mucous Membranes Moist, Normal Exam - Respiratory Exam Respiratory Exam: Decreased Breath Sounds, NORMAL BREATHING PATTERN - Cardiovascular Exam Cardiovascular Exam: REGULAR RHYTHM, +S1, +S2 - GI/Abdominal Exam GI & Abdominal Exam: Soft, Normal Bowel Sounds - Extremities Exam Extremities Exam: Full ROM, Normal Capillary Refill - Neurological Exam Neurological Exam: Alert, Awake, Oriented x3 - Psychiatric Exam Psychiatric exam: Normal Affect, Normal Mood - Skin Skin Exam: Dry, Normal Color, Warm Assessment and Plan - Assessment and Plan (Free Text) Assessment: An 83 year old male who came in to the ER due to shortness of breath for the past few days. History of COPD on 2L home O2, pulmonary HTN, sleep apnea,non- obstructive coronary artery disease, ex-smoker,atrial fibrillation, diabetes, hyperlipidemia. Denies chest pain. Exacerbation of COPD. Chest x ray today showed chronic interstitial lung disease, negative for pneumonia. no vascular c ongestion.Exacerbation of COPD. rule out congestive heart failure. Cardiac status stable. Plan: Denies shortness of breath,No distress Controlled blood pressure Controlled heart rate, telemetry NSR Cardiac status stable Will discontinue telemetry On Lasix 40 mg daily, Solumedrol 40 mg BID, Lopressor 25 mg BID Continue current treatment Continue current medications Continue IV antibiotics as ordered Will follow up Plan and treatment discussed with Dr. Davis
[2018-07-02] MEDS: Budesonide 0.5 mg/2 ml Inhal Susp UD IH SCH ×2 (08:08→20:10)
[2018-07-02] MEDS: Pantoprazole 20 mg EC Tab PO SCH (08:40)
[2018-07-02] MEDS: Enoxaparin 40 mg Syringe SC SCH (09:35)
[2018-07-02] MEDS: Tiotropium 18 mcg Cap For Inhalation IH SCH (09:35)
[2018-07-02] MEDS: MethylPREDNISolone 40 mg Vial IVP SCH ×2 (09:36→21:19)
[2018-07-02] MEDS: Azithromycin 500MG/NS 250ml 500 MG/250 ML BAG IVPB SCH (09:37)
--- NOTE | 2018-07-02 09:48 | PN ---
DATE: 07/02/2018 PULMONARY PROGRESS NOTE REFERRING PHYSICIAN: Jennifer Brown MD SUBJECTIVE: The patient is lying in bed. No acute distress. No overnight events reported. No headache, rhinitis, cough, shortness of breath, chest pain, abdominal pain, nausea, vomiting, diarrhea, leg pain or leg swelling reported. OBJECTIVE: GENERAL: No acute distress. VITAL SIGNS: Blood pressure 147/86, pulse 95, temperature 98.2 and oxygen saturation 94%. HEENT: Moist mucous membrane. Crowded airway. Mallampati score of 4. NECK: Supple. No JVD. LUNGS: Rhonchi bilaterally. No audible wheezing. CARDIOVASCULAR: S1 and S2, audible. ABDOMEN: Soft and nontender. No distension. No organomegaly. EXTREMITIES: No bilateral lower extremity edema. NEUROLOGIC: Awake, alert and verbal. Follows commands. MEDICATIONS: Reviewed. Tylenol 650 every 4 hours p.r.n., DuoNeb 3 mL inhalation every 6 hours, DuoNeb 3 mL inhalation every 2 hours p.r.n., Xanax 0.25 mg at bedtime, Zithromax 500 mg daily, Pulmicort 0.5 mg every 12 hours, Lovenox 40 mg subcutaneous daily, Pepcid 40 mg at bedtime, Solu-Medrol 40 mg every 12 hours, metoprolol tartrate 25 mg twice a day, Remeron 15 mg at bedtime, Protonix 20 mg in the morning, Zoloft 50 mg daily and Spiriva 18 mcg daily. LABORATORY DATA: Reviewed. No new labs since yesterday. IMPRESSION AND PLAN: Chronic obstructive pulmonary disease exacerbation, history of sleep apnea syndrome, gastroesophageal reflux disease, depression, anxiety, obstructive sleep apnea syndrome, history of pulmonary hypertension, history of atrial fibrillation and hypertension. Continue gastric prophylaxis and deep venous thrombosis prophylaxis. Head of bed elevated at 45 degrees. Sleep apnea precaution. The patient has refused continuous positive airway pressure machine at this time. Continue antibiotic therapy. Continue steroids. Continue diuretics. Continue inhaled bronchodilators. We will order procalcitonin level to be done today. This patient was seen and examined with Dr. Gan. Discussed assessment and plan as described above. Thank you for this consult and we will follow with you. Rubén Patel APN Kimmy Gan MD [facility] # [id number] VIVI
[2018-07-02] MEDS: BREO ELLIPTA PO SCH (10:57)
[2018-07-03] MEDS: Albuterol-Ipratrop 3 mg / 0.5 (3 ml) UD IH SCH ×4 (01:06→20:05)
--- NOTE | 2018-07-03 01:36 | PN ---
DATE: 07/02/2018 SUBJECTIVE: The patient is an 83-year-old male. The patient was seen and examined at the bedside on 07/02/2018, looking comfortable, shortness of breath is better. Cough is better. No more chest pain. No abdominal pain. No nausea, vomiting, or diarrhea. No hematuria or hematochezia. No swelling of the legs. No overnight event reported. PHYSICAL EXAMINATION: VITAL SIGNS: Blood pressure 140/80, pulse 95, temperature 98.2, oxygenation 94%. HEENT: Head is normocephalic and atraumatic. Eyes, PERRLA. Extraocular muscles are intact. Conjunctivae clear. Nose patent. Mucous membranes are moist. NECK: Supple. No carotid bruit, JVD or thyromegaly. CHEST: Bilaterally symmetric. HEART: S1 and S2 positive. LUNGS: Clear to auscultation. ABDOMEN: Soft. Bowel sounds present. No organomegaly. EXTREMITIES: No edema. No cyanosis. NEUROLOGIC: The patient is awake, alert. Follows simple commands. LABORATORY DATA: . MEDICATIONS: Tylenol, DuoNeb, Xanax, azithromycin, Lovenox subcutaneous, Pepcid, Solu-Medrol tapering dose, metoprolol, Phenergan, Remeron. ASSESSMENT AND PLAN: Mr. Ishmael Martínez is an 83-year-old male with multiple medical problems came with exacerbation of chronic obstructive pulmonary disease, failure of outpatient, history of sleep apnea syndrome, gastroesophageal reflux disease, depression, anxiety, history of pulmonary hypertension, atrial fibrillation, hypertension. Continue gastric prophylaxis and deep venous thrombosis prophylaxis. We will repeat labs. We will follow up. Jennifer Brown MD
[2018-07-03] MEDS: Pantoprazole 20 mg EC Tab PO SCH (07:30)
--- NOTE | 2018-07-03 07:59 | CP.PCM.PN ---
Subjective - Date & Time of Evaluation Date of Evaluation: 07/03/18 Time of Evaluation: 06:55 - Subjective Subjective: No distress,awake Reason for consultation and follow up: Cardiac evaluation of shortness of breath, history of COPD on home oxygen,pulmonary HTN, sleep apnea ,admitted for exacerbation of COPD. Seen and examined by me and Dr. Ceballos Objective - Vital Signs/Intake and Output Vital Signs (last 24 hours): Temp Pulse Resp BP Pulse Ox 97.9 F 90 19 120/73 94 L 07/02/18 16:23 07/02/18 17:35 07/02/18 16:23 07/02/18 17:35 07/02/18 16:23 Intake and Output: 07/03/18 07/03/18 06:59 18:59 Intake Total 240 Output Total 0 Balance 240 - Medications Medications: Current Medications Acetaminophen (Tylenol 325mg Tab) 650 mg PO Q4H PRN PRN Reason: pain fever Last Admin: 07/01/18 12:03 Dose: 650 mg Albuterol/Ipratropium (Duoneb 3 Mg/0.5 Mg (3 Ml) Ud) 3 ml IH [id number] JESE Last Admin: 07/03/18 01:06 Dose: 3 ml Albuterol/Ipratropium (Duoneb 3 Mg/0.5 Mg (3 Ml) Ud) 3 ml IH Q2H PRN PRN Reason: Shortness of Breath Alprazolam (Xanax) 0.25 mg PO HS JESE; Protocol Last Admin: 07/02/18 21:19 Dose: 0.25 mg Budesonide (Pulmicort Respules) 0.5 mg IH [id number] JESE Last Admin: 07/02/18 20:10 Dose: 0.5 mg Enoxaparin Sodium (Lovenox) 40 mg SC DAILY [facility]; Protocol Last Admin: 07/02/18 09:35 Dose: 40 mg Famotidine (Pepcid) 40 mg PO HS [facility] Last Admin: 07/02/18 21:19 Dose: 40 mg Azithromycin (Zithromax 500mg In Ns) 500 mg in 250 mls @ 167 mls/hr IVPB DAILY [facility]; Protocol Last Admin: 07/02/18 09:37 Dose: 167 mls/hr Methylprednisolone (Solu-Medrol) 40 mg IVP Q12 [facility] Last Admin: 07/02/18 21:19 Dose: 40 mg Metoprolol Tartrate (Lopressor) 25 mg PO BID [facility] Last Admin: 07/02/18 17:35 Dose: 25 mg Mirtazapine (Remeron) 15 mg PO HS [facility] Last Admin: 07/02/18 21:19 Dose: 15 mg Breo Ellipta 200-25 (Mcg Inh (Home Med)) 1 each PO DAILY [facility] Last Admin: 07/02/18 10:57 Dose: Not Given Pantoprazole Sodium (Protonix Ec Tab) 20 mg PO ACB [facility] Last Admin: 07/02/18 08:40 Dose: 20 mg Sertraline HCl (Zoloft) 50 mg PO DAILY [facility] Last Admin: 07/02/18 09:36 Dose: 50 mg Tiotropium [place] (Spiriva) 18 mcg IH DAILY [facility] Last Admin: 07/02/18 09:35 Dose: 18 mcg - Labs Labs: 07/01/18 05:30 07/01/18 05:30 Assessment and Plan - Assessment and Plan (Free Text) Assessment: An 83 year old male who came in to the ER due to shortness of breath for the past few days. History of COPD on 2L home O2, pulmonary HTN, sleep apnea,non- obstructive coronary artery disease, ex-smoker,atrial fibrillation, diabetes, hyperlipidemia. Denies chest pain. Exacerbation of COPD. Chest x ray today showed chronic interstitial lung disease, negative for pneumonia. no vascular congestion.Exacerbation of COPD. rule out congestive heart failure. Cardiac status stable.Clinically improved. Plan: Cardiac status stable Clinically improved Denies shortness of breath,No distress Controlled blood pressure Controlled heart rate On Lasix 40 mg daily, Solumedrol 40 mg BID, Lopressor 25 mg BID Continue current treatment Continue current medications Continue IV antibiotics as ordered Discharge planning Will follow up Plan and treatment discussed with Dr. Ceballos
[2018-07-03] MEDS: Budesonide 0.5 mg/2 ml Inhal Susp UD IH SCH ×2 (08:08→20:05)
--- NOTE | 2018-07-03 08:25 | PN ---
DATE: 07/02/2018 LOCATION: Patient is in room 362, bed 2. Patient was admitted with exacerbation of COPD with cough and shortness of breath. Patient denies any chest pain or palpitations. Patient known case of COPD with home oxygen, hypertension, and sleep apnea. Patient lying flat in bed. He says shortness of breath is gradually improving. Patient also has history of atrial fibrillation, ex-smoker, diabetes, and hyperlipidemia. Patient in our assessment does not have CHF, it was exacerbation of COPD and patient is slowly improving now. We will continue present therapy. Starting tomorrow, we will discontinue the Lasix therapy and we will continue rest of the medication and we will follow with you. Kimmy Davis MD
--- NOTE | 2018-07-03 08:34 | PN ---
DATE: 07/01/2018 LOCATION: Patient is room 362, bed 2. Detailed note has been already written by Randi Lozoya. This is an additional note. Patient was admitted with exacerbation of shortness of breath which was exacerbation of COPD, who has extensive history of chronic obstructive lung disease, pulmonary fibrosis, pulmonary hypertension, diabetes, hyperlipidemia, ex-smoker on home oxygen, history of nonobstructive coronary artery disease on cardiac catheterization in 2014. Patient had abnormal stress test and catheterization was done. Patient's recent echo on 03/17/2018 showed preserved LV function, early diastolic dysfunction, moderate tricuspid regurgitation, pulmonary hypertension, and RVSP 67 mm/Hg. Patient's troponin is normal. NT-proBNP natriuretic peptide is 994 which is not significant. TSH is normal at 1.36. Electrolytes; BUN and creatinine are normal. Patient's shortness of breath is on basis of exacerbation of chronic obstructive pulmonary disease. So, we will continue present therapy with nebulizer therapy, methylprednisolone 40 mg IV every 12 hours, azithromycin 500 mg IV daily, Zoloft 50 mg p.o. daily, Protonix 20 mg daily, Lovenox 40 mg subcu daily, metoprolol tartrate 25 mg b.i.d. Patient received 40 mg IV daily Lasix. We will follow. Kimmy Davis MD
[2018-07-03] MEDS: BREO ELLIPTA PO SCH (10:18)
[2018-07-03] MEDS: Enoxaparin 40 mg Syringe SC SCH (10:27)
[2018-07-03] MEDS: MethylPREDNISolone 40 mg Vial IVP SCH ×2 (10:28→21:42)
[2018-07-03] MEDS: Azithromycin 500MG/NS 250ml 500 MG/250 ML BAG IVPB SCH (10:28)
--- NOTE | 2018-07-03 14:30 | PN ---
DATE: 07/03/2018 PULMONARY PROGRESS NOTE REFERRING PHYSICIAN: Jennifer Brown MD SUBJECTIVE: The patient is lying in bed. No acute distress. No overnight events reported. The patient reports feeling well. Denies any shortness of breath or any coughing. No headache, rhinitis, chest pain, abdominal pain, nausea, vomiting, diarrhea, leg pain or leg swelling reported. OBJECTIVE: GENERAL: No acute distress. VITAL SIGNS: Blood pressure 120/72, pulse 87, temperature 97.5 and oxygen saturation 93%. HEENT: Moist mucous membranes. Crowded airway. Mallampati score of 4. NECK: Supple. No JVD. LUNGS: Rhonchi bilaterally, wheezing anterior right upper lobe. CARDIOVASCULAR: S1 and S2, audible. ABDOMEN: Soft and nontender. No distension. No organomegaly. EXTREMITIES: No bilateral lower extremity edema. NEUROLOGIC: Awake, alert and verbal. Follows commands. MEDICATIONS: Reviewed. Tylenol 650 mg every 4 hours p.r.n., DuoNeb 3 mL inhalation every 6 hours, DuoNeb 3 mL inhalation every 2 hours p.r.n., Xanax 0.25 mg at bedtime, Zithromax 500 mg daily, Pulmicort 0.5 mg every 12 hours, Lovenox 40 mg subcutaneous daily, Pepcid 40 mg at bedtime, Solu-Medrol 40 mg every 12 hours, metoprolol tartrate 25 mg twice a day, Remeron 15 mg at bedtime, Protonix 20 mg daily, Zoloft 50 mg daily and Spiriva 18 mcg daily. LABORATORY DATA: Reviewed. Procalcitonin 0.12 and troponin 0.03. IMPRESSION AND PLAN: Chronic obstructive pulmonary disease exacerbation, history of sleep apnea syndrome, gastroesophageal reflux disease, depression, anxiety, obstructive sleep apnea syndrome, history of pulmonary hypertension, history of atrial fibrillation and hypertension. Continue deep venous thrombosis prophylaxis, gastric prophylaxis, sleep apnea precaution, head of bed elevated at 45 degrees. The patient refuses to use continuous positive airway pressure machine. Continue antibiotic therapy. Continue steroids. We will restart Lasix 40 mg daily. The patient has diastolic dysfunction, severe pulmonary hypertension. Echocardiogram done on March 17, 2018 shows ejection fraction of 65%, right ventricular systolic pressure 67%. We will decrease Solu-Medrol to 20 mg every 12 hours. Follow evaluation was done today and the patient is negative for dysphagia. Currently on regular diet. Aspiration precautions. We will order labs for the morning. This patient was seen and examined with Dr. Gan. Discussed assessment and plan as described above. Thank you for this consult and we will follow with you. Rubén Patel APN Kimmy Gan MD [facility]
--- NOTE | 2018-07-03 18:43 | PN ---
DATE: 07/03/2018 REASON FOR CONSULTATION: Followup cardiac evaluation, shortness of breath, history of COPD on home oxygen, pulmonary hypertension, sleep apnea, admitted with exacerbation of COPD. This note is an addition to already dictated by nurse practitioner, Randi Lozoya. PHYSICAL EXAMINATION GENERAL: The patient feels better. VITAL SIGNS: Stable. LABORATORY DATA: Hemoglobin 14.8, hematocrit 45.4. Potassium 4. Troponin remains flat. IMPRESSION: An 83-year-old male with a past medical history of chronic obstructive pulmonary disease on home oxygen, pulmonary hypertension, obstructive sleep apnea, history of coronary artery disease, ex-smoker, atrial fibrillation, admitted with exacerbation of chronic obstructive pulmonary disease. Cardiac status is stable. RECOMMENDATIONS: Continue Lasix. Continue aggressive treatment for COPD. Continue metoprolol. Continue DVT prophylaxis. We will discontinue telemetry. We will follow with you. Thank you Dr. Brown for providing us the opportunity in taking care of the patient, Ishmael Martínez. Kimmy Ceballos MD
[2018-07-04] MEDS: Albuterol-Ipratrop 3 mg / 0.5 (3 ml) UD IH SCH ×3 (01:45→20:07)
--- NOTE | 2018-07-04 04:53 | PN ---
DATE: 07/03/2018 SUBJECTIVE: The patient was seen and examined at the bedside on 07/03/2018. Girlfriend was sitting on the bedside also. Looking comfortable. No fever, no chills, no nausea or vomiting, no diarrhea, no hematuria, no hematochezia. No swelling of the legs. PHYSICAL EXAMINATION VITAL SIGNS: Blood pressure 120/70, pulse 87, temperature 97.5, oxygen saturation 93%. HEENT: Head is normocephalic and atraumatic. Eyes: PERRLA. Extraocular muscles intact. Conjunctivae clear. Nose patent. Mucous membrane moist. NECK: Supple. No JVD or thyromegaly. LUNGS: Rhonchi bilaterally and wheezing bilaterally, especially in the right upper lobe. CARDIOVASCULAR: S1 and S2 positive. ABDOMEN: Soft, nontender. No organomegaly. EXTREMITIES: Bilateral lower extremity edema. NEUROLOGICAL: Awake and alert. Follows simple commands. MEDICATIONS: Tylenol, DuoNeb, inhaled bronchodilator, Xopenex, azithromycin, Pulmicort, Lovenox, Pepcid, Solu-Medrol tapering dose, metoprolol, Remeron, Protonix, Zoloft and Spiriva. LABORATORY DATA: We do not have recent lab today, but I reviewed old labs. ASSESSMENT AND PLAN: Mr. Ishmael Martínez is an 83-year-old male with exacerbation of chronic obstructive pulmonary disease, hypertension, depression, insomnia, history of sleep apnea syndrome, gastroesophageal reflux disease, anxiety, history of pulmonary hypertension and atrial fibrillation. The patient is on continue Lasix. Gastrointestinal and deep venous thrombosis prophylaxis. The patient refuses continuous positive airway pressure. Started on Lasix. Echocardiogram done on 03/17/2018 showed ejection fraction of 55%. We will Solu-Medrol from 20 to 40 as per chemical machine tender. Repeat labs. We will follow up. Jennifer Brown MD
[2018-07-04 06:56] LABS: BASO # 0.02 K/mm3 (0.0-2.0); BASO % 0.1 % (0.0-3.0); GRAN # 12.68 (1.4-6.5); GRAN % 84.3 % (50.0-68.0); LYMPH # 1.4 (1.2-3.4); MEAN CELL VOLUME 96.3 fl (80.0-105.0); MEAN CORPUSCULAR HEMOGLOBIN 30.8 pg (25.0-35.0); MEAN PLATELET VOLUME 10.3 fl (7.0-11.0); MONO % 6.6 % (1.0-6.0); RBC 4.87 10^6/uL (3.5-6.1); RED CELL DISTRIBUTION WIDTH 12.9 % (11.5-14.5); WHITE BLOOD COUNT 15.1 10^3/uL (4.5-11.0)
[2018-07-04 07:26] LABS: ALB/GLOB RATIO 1.1 (1.1-1.8); ALBUMIN 3.5 g/dL (3.0-4.8); ALT/SGPT 26 U/L (7-56); AST/SGOT 33 U/L (17-59); BLOOD UREA NITROGEN 35 mg/dL (7-21); GFR NON-AFRICAN AMERICAN > 60
[2018-07-04] MEDS: Budesonide 0.5 mg/2 ml Inhal Susp UD IH SCH ×2 (08:12→20:08)
--- NOTE | 2018-07-04 08:27 | CP.PCM.PN ---
Subjective - Date & Time of Evaluation Date of Evaluation: 07/04/18 Time of Evaluation: 06:55 - Subjective Subjective: No distress,sleeping but easly awaken Reason for consultation and follow up: Cardiac evaluation of shortness of breath, history of COPD on home oxygen,pulmonary HTN, sleep apnea ,admitted for exacerbation of COPD. Seen and examined by me and Dr. Ceballos Objective - Vital Signs/Intake and Output Vital Signs (last 24 hours): Temp Pulse Resp BP Pulse Ox 97.4 F L 82 20 119/68 98 07/04/18 08:10 07/04/18 08:10 07/04/18 08:10 07/04/18 08:10 07/04/18 08:10 Intake and Output: 07/04/18 07/04/18 06:59 18:59 Intake Total 920 Output Total 50 Balance 870 - Medications Medications: Current Medications Acetaminophen (Tylenol 325mg Tab) 650 mg PO Q4H PRN PRN Reason: pain fever Last Admin: 07/01/18 12:03 Dose: 650 mg Albuterol/Ipratropium (Duoneb 3 Mg/0.5 Mg (3 Ml) Ud) 3 ml IH [id number] JESE Last Admin: 07/04/18 08:12 Dose: 3 ml Albuterol/Ipratropium (Duoneb 3 Mg/0.5 Mg (3 Ml) Ud) 3 ml IH Q2H PRN PRN Reason: Shortness of Breath Alprazolam (Xanax) 0.25 mg PO HS JESE; Protocol Last Admin: 07/03/18 21:43 Dose: 0.25 mg Budesonide (Pulmicort Respules) 0.5 mg IH [id number] JESE Last Admin: 07/04/18 08:12 Dose: 0.5 mg Enoxaparin Sodium (Lovenox) 40 mg SC DAILY JESE; Protocol Last Admin: 07/03/18 10:27 Dose: 40 mg Famotidine (Pepcid) 40 mg PO HS JESE Last Admin: 07/03/18 21:42 Dose: 40 mg Furosemide (Lasix) 40 mg IVP DAILY JESE Azithromycin (Zithromax 500mg In Ns) 500 mg in 250 mls @ 167 mls/hr IVPB DAILY JESE; Protocol Last Admin: 07/03/18 10:28 Dose: 167 mls/hr Methylprednisolone (Solu-Medrol) 20 mg IVP Q12 [facility] Last Admin: 07/03/18 21:42 Dose: 20 mg Metoprolol Tartrate (Lopressor) 25 mg PO BID [facility] Last Admin: 07/03/18 18:22 Dose: 25 mg Mirtazapine (Remeron) 15 mg PO HS [facility] Last Admin: 07/03/18 21:42 Dose: 15 mg Breo Ellipta 200-25 (Mcg Inh (Home Med)) 1 each PO DAILY [facility] Last Admin: 07/03/18 10:18 Dose: Not Given Pantoprazole Sodium (Protonix Ec Tab) 20 mg PO ACB [facility] Last Admin: 07/03/18 07:30 Dose: 20 mg Sertraline HCl (Zoloft) 50 mg PO DAILY [facility] Last Admin: 07/03/18 10:28 Dose: 50 mg Tiotropium [place] (Spiriva) 18 mcg IH DAILY [facility] Last Admin: 07/02/18 09:35 Dose: 18 mcg - Labs Labs: 07/04/18 06:00 07/04/18 06:00 - Constitutional Appears: Non-toxic, No Acute Distress - Head Exam Head Exam: NORMAL INSPECTION, NORMOCEPHALIC - Eye Exam Eye Exam: Normal appearance Pupil Exam: NORMAL ACCOMODATION - ENT Exam ENT Exam: Mucous Membranes Moist, Normal Exam - Respiratory Exam Respiratory Exam: Decreased Breath Sounds, NORMAL BREATHING PATTERN - Cardiovascular Exam Cardiovascular Exam: +S1, +S2 - GI/Abdominal Exam GI & Abdominal Exam: Soft, Normal Bowel Sounds - Extremities Exam Extremities Exam: Full ROM - Neurological Exam Neurological Exam: Alert, Awake - Psychiatric Exam Psychiatric exam: Normal Affect, Normal Mood - Skin Skin Exam: Dry, Normal Color, Warm Assessment and Plan - Assessment and Plan (Free Text) Assessment: An 83 year old male who came in to the ER due to shortness of breath for the past few days. History of COPD on 2L home O2, pulmonary HTN, sleep apnea,non- obstructive coronary artery disease, ex-smoker,atrial fibrillation, diabetes, hyperlipidemia. Denies chest pain. Exacerbation of COPD. Chest x ray today showed chronic interstitial lung disease, negative for pneumonia. no vascular congestion.Exacerbation of COPD. rule out congestive heart failure. Cardiac status stable. Plan: Denies shortness of breath,No distress Cardiac status stable Controlled blood pressure Controlled heart rate On Lasix 40 mg daily, Solumedrol 40 mg BID, Lopressor 25 mg BID Continue current treatment Continue current medications Continue IV antibiotics as ordered Discharge planning Will follow up Plan and treatment discussed with Dr. Ceballos
[2018-07-04] MEDS: Azithromycin 500MG/NS 250ml 500 MG/250 ML BAG IVPB SCH (09:37)
[2018-07-04] MEDS: MethylPREDNISolone 40 mg Vial IVP SCH ×2 (09:38→22:05)
[2018-07-04] MEDS: Enoxaparin 40 mg Syringe SC SCH (09:38)
[2018-07-04] MEDS: Pantoprazole 20 mg EC Tab PO SCH (09:39)
[2018-07-04] MEDS: BREO ELLIPTA PO SCH (09:39)
[2018-07-04] MEDS: Tiotropium 18 mcg Cap For Inhalation IH SCH (09:39)
--- NOTE | 2018-07-04 13:24 | PN ---
DATE: 07/04/2018 PULMONARY PROGRESS NOTE REFERRING PHYSICIAN: Jennifer Brown MD SUBJECTIVE: The patient is lying in bed. Head of bed elevated. No acute distress. No overnight events reported. The patient reports feeling well today. No headache, rhinitis, cough, shortness of breath, chest pain, abdominal pain, nausea, vomiting, diarrhea, leg pain or leg swelling reported. OBJECTIVE: GENERAL: No acute distress. HEENT: Moist mucous membranes. Mallampati score of 4. Crowded airway. NECK: Supple. No JVD. LUNGS: Few rhonchi bilaterally, mild wheezing. CARDIOVASCULAR: S1 and S2, audible. ABDOMEN: Soft and nontender. No distension. No organomegaly. EXTREMITIES: No bilateral lower extremity edema. NEUROLOGIC: Awake, alert and verbal. Follows commands. MEDICATIONS: Reviewed. Tylenol 650 every 4 hours p.r.n., DuoNeb 3 mL inhalation every 6 hours, DuoNeb 3 mL inhalation every 2 hours p.r.n., Xanax 0.25 mg at bedtime, Pulmicort 0.5 mg inhalation every 12 hours, Lovenox 40 mg subcutaneous daily, Pepcid 40 mg at bedtime, Lasix 40 mg daily, Solu-Medrol 20 mg every 12 hours, metoprolol tartrate 25 mg twice a day, Remeron 15 mg at bedtime, Protonix 20 mg in the morning, Zoloft 50 mg daily and Spiriva 18 mcg inhalation daily. LABORATORY DATA: Reviewed. WBC 15.1, RBC 4.87, hemoglobin 15, hematocrit 46.9 and platelets 238. Sodium 143, potassium 4.1, chloride 103, carbon dioxide 33, anion gap 11, BUN 35, creatinine 0.8, GFR greater than 60, random glucose 123, calcium 9, total bilirubin 0.6, AST 33, ALT 26, alkaline phosphatase 74, total protein 6.8, albumin 3.5, globulin 3.3, albumin-globulin ratio 1.1 and procalcitonin 0.12. IMPRESSION AND PLAN: Chronic obstructive pulmonary disease exacerbation, history of sleep apnea syndrome, gastroesophageal reflux disease, depression, anxiety, obstructive sleep apnea syndrome, history of pulmonary hypertension, history of atrial fibrillation and hypertension. Continue deep venous thrombosis prophylaxis, gastric prophylaxis, sleep apnea precaution, head of bed elevated at 45 degrees. The patient refuses to use continuous positive airway pressure machine. Continue antibiotic therapy. Continue steroids. Although swallow evaluation was negative for dysphagia, we had high suspicion clinically for oropharyngeal dysfunction. We recommend patient head of bed is elevated while eating and the patient head of bed remains elevated after meals. Aspiration precautions. This patient was seen and examined with Dr. Gan. Discussed assessment and plan as described above. Thank you for this consult and we will follow with you. Rubén Patel APN Kimmy Gan MD
--- NOTE | 2018-07-04 16:02 | PN ---
DATE: 07/04/2018 REASON FOR CONSULTATION: Followup cardiac evaluation, shortness of breath, history of COPD on home oxygen, pulmonary hypertension, sleep apnea, admitted with exacerbation of COPD. This note is in addition to dictated by nurse practitioner, Randi Lozoya. SUBJECTIVE: The patient feels better than before. PERTINENT LABORATORY DATA: Hemoglobin 15, hematocrit 46.9. Sodium 139, potassium 4.1, BUN 35, creatinine 0.9. IMPRESSION: An 83-year-old male with past medical history significant for chronic obstructive pulmonary disease on home oxygen, pulmonary hypertension, obstructive sleep apnea, history of coronary artery disease, ex-smoker, atrial fibrillation, admitted with exacerbation of chronic obstructive pulmonary disease. Cardiac status is stable. RECOMMENDATIONS: Continue aggressive treatment for COPD. Continue metoprolol. Continue DVT prophylaxis. Telemetry has been discontinued. CVS status is stable. The patient is in normal sinus now. Thank you Dr. Brown for providing us the opportunity in taking care of the patient, Tanya Quiñones. Kimmy Ceballos MD [facility]
--- NOTE | 2018-07-04 23:14 | PN ---
DATE: 07/04/2018 SUBJECTIVE: The patient is an 83-year-old male. The patient was seen and examined on the bedside, 07/04/2018, looking comfortable. No fever. No chills. No hematuria. No hematochezia. Cough is better. Shortness of breath is better. No headache. No dizziness. PHYSICAL EXAMINATION: VITAL SIGNS: The patient is afebrile, respiratory rate 18, blood pressure 111/62, pulse rate 85, pulse oximetry 92. HEENT: Head: Normocephalic, atraumatic. Eyes: PERRLA. Extraocular muscles are intact. Conjunctivae clear. Nose patent. Mucous membranes moist. NECK: Supple. No carotid bruit. No JVD or thyromegaly. CHEST: Bilaterally symmetrical. HEART: S1 and S2, positive. LUNGS: Clear to auscultation. ABDOMEN: Soft. Bowel sounds present. No organomegaly. EXTREMITIES: No edema. No cyanosis. NEUROLOGICAL: The patient is awake and alert. Moving all 4 extremities. No focal deficit. MEDICATIONS: Breo Ellipta, albuterol, DuoNeb, Lasix, Lopressor, Lovenox, Pepcid, pantoprazole, Pulmicort, Remeron, Solu-Medrol, Spiriva, Tylenol, Xanax, Zoloft. LABORATORY DATA: White blood cells 15.1, hemoglobin 15.0, hematocrit 46.9, platelets 238. Sodium 143, potassium 4.1, BUN 35, creatinine 0.8, glucose 123. ASSESSMENT AND PLAN: Mr. Ishmael Martínez is an 83-year-old male with leukocytosis, hyperglycemia, history of hypermagnesemia, chronic obstructive lung disease, as well as the patient has history of gastroesophageal reflux disease, depression, anxiety, obstructive sleep apnea syndrome, pulmonary hypertension, atrial fibrillation, hypertension. Getting physical therapy. Gastrointestinal and deep venous thrombosis prophylaxis. The patient refuses to use continuous positive airway pressure machine. The patient is noncompliant. Degenerative joint disease. Continue tapering dose of steroid. He had high suspicions clinically for oropharyngeal dysphagia, aspiration precaution. Girlfriend was on the bedside. Repeat labs. We will follow up. Jennifer Brown MD
[2018-07-05] MEDS: Albuterol-Ipratrop 3 mg / 0.5 (3 ml) UD IH SCH ×3 (02:15→13:57)
[2018-07-05 06:49] VITALS: BP 123/73; PULSE 86; RESP 20; TEMP 97.9; O2SAT 96
[2018-07-05] MEDS: Budesonide 0.5 mg/2 ml Inhal Susp UD IH SCH (08:07)
[2018-07-05] MEDS: Pantoprazole 20 mg EC Tab PO SCH (08:58)
[2018-07-05] MEDS: MethylPREDNISolone 40 mg Vial IVP SCH (10:54)
[2018-07-05] MEDS: Tiotropium 18 mcg Cap For Inhalation IH SCH (10:55)
[2018-07-05] MEDS: Enoxaparin 40 mg Syringe SC SCH (10:55)
[2018-07-05] MEDS: BREO ELLIPTA PO SCH (11:03)
--- NOTE | 2018-07-05 13:40 | PN ---
DATE: 07/05/2018 REASON FOR CONSULTATION: Followup cardiac evaluation; shortness of breath; history of COPD, on home oxygen; pulmonary hypertension; sleep apnea; admitted today with exacerbation of COPD. SUBJECTIVE: The patient is lying flat on the bed; denies any chest pain, shortness of breath, or any palpitation. PHYSICAL EXAMINATION: GENERAL: Not in apparent distress. Lying flat on the bed. VITAL SIGNS: Temperature afebrile, heart rate 86, blood pressure 123/73. HEENT: PERRLA. Extraocular muscles are intact. NECK: Supple. No carotid bruit or thyromegaly. CHEST: Clear to auscultation. HEART: S1 and S2 regular. ABDOMEN: Soft. EXTREMITIES: Clubbing and cyanosis negative. LABORATORY DATA: Blood workup as follows: WBC as of yesterday 15, hemoglobin 15, hematocrit 46.9, and platelet count 238. Chemistry shows sodium 143, potassium 4, chloride 103, carbon dioxide 33, anion gap of 11, BUN 35, and creatinine 0.8. TSH 1.36. Total cholesterol 156, LDL 98, HDL 36, triglycerides 75. Troponin remains flat at 0.03. IMPRESSION: This is an 83-year-old male with a past medical history significant for chronic obstructive pulmonary disease, on home oxygen; pulmonary hypertension; obstructive sleep apnea; history of coronary artery disease; ex-smoker; atrial fibrillation; exacerbation of chronic obstructive pulmonary disease, cerebrovascular accident status stable. No evidence of acute myocardial infarction noted. RECOMMENDATIONS: Continue gentle diuretics, continue DVT prophylaxis. Continue metoprolol. The patient is currently in normal sinus for COPD. The patient had a cardiac cath done on 03/09/2015 that showed a nonobstructive coronary artery disease, limited only to distal, very diffuse, there is no flow-limiting obstructive coronary artery disease noted. Ejection fraction was well preserved, 65 to 70%, EDP was in the range of 15 dated 03/09/2015. Medical treatment recommended. Recent echo, patient had a repeat on 03/[address] Morton shows normal LV function. No segmental wall motion abnormality, early diastolic dysfunction, moderate tricuspid regurgitation, RVSP 67 mmHg. Recommendations as mentioned above. Monitor electrolytes. In view of elevated total cholesterol, we will start low dose of atorvastatin. The goal is to keep LDL at 70 because the patient has mild to moderate CAD, non flow limiting, nonobstructive. The patient is cleared from a Cardiology point of view, and when stable from Pulmonary, okay to discharge. No further cardiac workup is planned or warranted. Kimmy Ceballos MD
--- NOTE | 2018-07-05 15:33 | PN ---
DATE: 07/05/2018 PULMONARY PROGRESS NOTE REFERRING PHYSICIAN: Jennifer Brown MD SUBJECTIVE: The patient is lying in bed. Head of bed elevated. Daughter is at bedside. The patient reports feeling well today. No headache, rhinitis, cough, shortness of breath, chest pain, abdominal pain, nausea, vomiting, diarrhea, leg pain or leg swelling reported. Nursing staff report that the patient walked with physical therapy today. OBJECTIVE: GENERAL: No acute distress. VITAL SIGNS: Blood pressure 123/73, pulse 86, temperature 97.9 and oxygen saturation 96%. HEENT: Moist mucous membranes. Crowded airway. Mallampati score of 4. NECK: Supple. No JVD. LUNGS: Few rhonchi bilaterally. CARDIOVASCULAR: S1 and S2, audible. ABDOMEN: Soft and nontender. No distension. No organomegaly. EXTREMITIES: No bilateral lower extremity edema. NEUROLOGIC: Awake, alert and verbal. Follows commands. MEDICATIONS: Reviewed. Tylenol 650 every 4 hours p.r.n., DuoNeb 3 mL inhalation every 6 hours, DuoNeb 3 mL inhalation every 2 hours p.r.n., Xanax 0.25 mg at bedtime, Lipitor 20 mg at dinner, Pulmicort 0.5 mg every 12 hours, Lovenox 40 mg subcutaneous daily, Pepcid 40 mg at bedtime, Lasix 40 mg daily, Solu-Medrol 20 mg every 12 hours, Lopressor 25 mg twice a day, Protonix 20 mg in the morning, Zoloft 50 mg daily and Spiriva 18 mcg daily. LABORATORY DATA: Reviewed. No new labs since yesterday. IMPRESSION AND PLAN: Chronic obstructive pulmonary disease exacerbation, history of sleep apnea syndrome, gastroesophageal reflux disease, depression, anxiety, history of pulmonary hypertension, history of atrial fibrillation and hypertension. Continue deep venous thrombosis prophylaxis, gastric prophylaxis, sleep apnea precaution, head of bed elevated at 45 degrees. The patient presently refusing to use continuous positive airway pressure machine. Continue steroids, antibiotic therapy and aspiration precaution. We recommend the patient of head of bed elevated while eating and head of bed should remain elevated 1 hour after meals. We will decrease Solu-Medrol to 20 mg daily. I spoke with daughter who reports that patient at home is on Breo and Spiriva, she states that Spiriva is expensive with patient's current insurance. Recommended we could try Trelegy on it being covered by insurance, if not can continue Breo and start Incruse instead of Spiriva. Daughter verbalized understanding. This patient was seen and examined with Dr. Gan. Discussed assessment and plan as described above. Thank you for this consult. We will follow with you. Rubén Patel APN Kimmy Gan MD
[2018-07-06] MEDS ORDERED: MethylPREDNISolone 40 mg Vial IVP SCH (10:00)
== END 2018-07-05 19:15 | DRG 192 ==
LOC: ED 12:04 → ERH 13:44 → 3RNO 21:27
PROVIDERS: ADMIT Internal Medicine; ATTEND Internal Medicine
DX: J44.1 Chronic obstructive pulmonary disease with (acute) exacerbation (principal); J84.10 Pulmonary fibrosis, unspecified; I27.20 Pulmonary hypertension, unspecified; I48.0 Paroxysmal atrial fibrillation; K21.9 Gastro-esophageal reflux disease without esophagitis; M19.90 Unspecified osteoarthritis, unspecified site; R32 Unspecified urinary incontinence; D72.829 Elevated white blood cell count, unspecified; E11.65 Type 2 diabetes mellitus with hyperglycemia; E11.69 Type 2 diabetes mellitus with other specified complication; E78.00 Pure hypercholesterolemia, unspecified; E78.5 Hyperlipidemia, unspecified; F32.89 Other specified depressive episodes; G47.00 Insomnia, unspecified; G47.33 Obstructive sleep apnea (adult) (pediatric); I07.1 Rheumatic tricuspid insufficiency; I10 Essential (primary) hypertension; I25.10 Atherosclerotic heart disease of native coronary artery without angina pectoris; W19.XXXA Unspecified fall, initial encounter; Z79.899 Other long term (current) drug therapy; Z86.73 Personal history of transient ischemic attack (TIA), and cerebral infarction without residual deficits; Z87.891 Personal history of nicotine dependence; Z91.19 Patient's noncompliance with other medical treatment and regimen; Z99.81 Dependence on supplemental oxygen

== ENCOUNTER 2018-07-09 19:24 | Inpatient (IN) | payer MEDICARE ==
[2018-07-09 19:25] VITALS: PULSE 160; BMI 23.1
[2018-07-09] MEDS ORDERED: Albuterol-Ipratrop 3 mg / 0.5 (3 ml) UD ONE (19:37)
[2018-07-09 20:10] LABS: VENOUS BLOOD GAS BASE EXCESS 2.5 mmol/L (0.0-2.0); VENOUS BLOOD GAS PO2 44 mm/Hg (30-55); VENOUS BLOOD PH 7.38 (7.32-7.43)
[2018-07-09] MEDS ORDERED: Vancomycin 1gm in NS 250ml 1 GM/250 ML BAG IVPB STA (20:13)
[2018-07-09 20:29] LABS: BASO # 0.03 K/mm3 (0.0-2.0); BASO % 0.1 % (0.0-3.0); GRAN # 29.58 (1.4-6.5); GRAN % 91.4 % (50.0-68.0); LYMPH # 0.8 (1.2-3.4); LYMPH % 2.4 % (22.0-35.0); MEAN CELL VOLUME 94.1 fl (80.0-105.0); MEAN CORPUSCULAR HEMOGLOBIN 31.5 pg (25.0-35.0); MEAN CORPUSCULAR HGB CONC 33.5 g/dl (31.0-37.0); MEAN PLATELET VOLUME 10.8 fl (7.0-11.0); MONO % 6.1 % (1.0-6.0); PLATELET COUNT 308 10^3/uL (120.0-450.0); RBC 5.39 10^6/uL (3.5-6.1); RED CELL DISTRIBUTION WIDTH 13.4 % (11.5-14.5)
--- NOTE | 2018-07-09 20:31 | ED PDOC ---
Arrival/HPI - General Chief Complaint: Shortness Of Breath Time Seen by Provider: 07/09/18 19:30 Historian: Patient, Family - History of Present Illness Narrative History of Present Illness (Text): 07/09/18 19:50 83 year old male, whose past medical history includes COPD on 2L home O2, pulmonary hypertension, and sleep apnea, presents to the emergency department via EMS accompanied by family complaining of worsening shortness of breath for the past couple of days. Patient was recently at [facility] and with a diagnosis of pneumonia. Patient denies any fever, chills, chest pain, nausea, vomiting, diarrhea, urinary symptoms, back pain, neck pain, headache, dizziness, or any other complaints. PMD: Dr. Brown Supervisor [employer]: Dr. Gan Cardio: Dr. 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 - HEENT Hx HEENT Disorder: Yes (eyeglasses) Hx Cataracts: Yes (b/l sx) Other/Comment: bilateral hearing aids - Renal Hx Renal Disorder: No - Endocrine/Metabolic Hx Endocrine Disorders: No - Hematological/Oncological Hx Cancer: No - Integumentary Hx Dermatological Disorder: Yes Other/Comment: ble multiple skin discolorations, brown and deep red, deep red scab rle below knee, bue this dry skin with multiple skin discolorations - Musculoskeletal/Rheumatological Hx Musculoskeletal Disorders: Yes Hx Falls: Yes Hx Unsteady Gait: Yes (walker) - Gastrointestinal Hx Gastrointestinal Disorders: Yes Hx Gastroesophageal Reflux: Yes Other/Comment: gi bleed, colon polyps - Genitourinary/Gynecological Hx Genitourinary Disorders: No - Psychiatric Hx Psychophysiologic Disorder: Yes Hx Anxiety: Yes Hx Emotional Abuse: No Hx Panic Disorder: Yes Hx Physical Abuse: No Hx Substance Use: No Other/Comment: difficulty sleeping, etoh and fell 2009 - Surgical History Other/Comment: colon sx, hernia repair inguinal and ventral - Anesthesia Hx Anesthesia: Yes Hx Anesthesia Reactions: No Hx Malignant Hyperthermia: No - Suicidal Assessment Feels Threatened In Home Enviroment: No Family/Social History - Physician Review Nursing Documentation Reviewed: Yes Family/Social History: No Known Family HX Smoking Status: Former Smoker Hx Alcohol Use: Yes (in the past) Hx Substance Use: No Hx Substance Use Treatment: No Allergies/Home Meds Allergies/Adverse Reactions: Allergies No Known Allergies Allergy (Verified 06/30/18 12:08) Home Medications: Home Meds Medication Instructions Recorded Confirmed Alprazolam [Xanax] 0.25 mg PO HS 03/15/18 07/09/18 Fluticasone/Vilanterol 200/25 1 each IH DAILY 03/15/18 07/09/18 [Breo Ellipta 200-25 Mcg INH] Mirtazapine [Remeron] 15 mg PO HS 03/15/18 07/09/18 Sertraline [Zoloft] 50 mg PO DAILY 03/15/18 07/09/18 LORazepam [Ativan] 1 mg PO HS 05/29/18 07/09/18 Tiotropium [Spiriva] 18 mcg IH DAILY 05/29/18 07/09/18 Review of Systems - Physician Review All systems were reviewed & negative as marked: Yes - Review of Systems Constitutional: absent: Fevers, Other (Chills) Respiratory: SOB Cardiovascular: absent: Chest Pain Gastrointestinal: absent: Diarrhea, Nausea, Vomiting Genitourinary Male: absent: Dysuria, Frequency, Hematuria Musculoskeletal: absent: Back Pain, Neck Pain Neurological: absent: Headache, Dizziness Physical Exam Vital Signs Reviewed: Yes Vital Signs Temp Pulse Resp BP Pulse Ox 07/09/18 20:17 105 H 14 104/82 07/09/18 20:14 102.1 F H 07/09/18 19:58 105 H 18 96 07/09/18 19:25 98.1 F 105 H 26 H 141/59 L 88 L Temperature: Febrile Blood Pressure: Hypotensive Pulse: Tachycardic Respiratory Rate: Tachypneic Appearance: Positive for: Well-Appearing, Non-Toxic, Comfortable Pain Distress: None Mental Status: Positive for: Alert and Oriented X 3 - Systems Exam Head: Present: Atraumatic, Normocephalic Pupils: Present: PERRL Extroacular Muscles: Present: EOMI Conjunctiva: Present: Normal Mouth: Present: Moist Mucous Membranes Neck: Present: Normal Range of Motion Respiratory/Chest: Present: Rhonchi (bilaterally). No: Respiratory Distress, Accessory Muscle Use Cardiovascular: Present: Regular Rate and Rhythm, Normal S1, S2. No: Murmurs Abdomen: No: Tenderness, Distention, Peritoneal Signs Back: Present: Normal Inspection Upper Extremity: Present: Normal Inspection. No: Cyanosis, Edema Lower Extremity: Present: Normal Inspection. No: Edema Neurological: Present: GCS=15, CN II-XII Intact, Speech Normal Skin: Present: Warm, Dry, Normal Color. No: Rashes Psychiatric: Present: Alert, Oriented x 3, Normal Insight, Normal Concentration Medical Decision Making ED Course and Treatment: 07/09/18 19:50 Impression: 83 year old male presents complaining of worsening of shortness of breath for the past couple of days. PE shows Rhonchi bilaterally. Plan: -- VBG -- EKG -- Labs -- Chest X-ray -- Vancomycin -- Blood Culture -- Rapid Flu -- Reassess and disposition Prior Visits: Notes and results from previous visits were reviewed. Progress Notes: 07/09/18 19:34 EKG shows Sinus Tachycardia at 106 BPM with non-specific ST/T segment changes. Interpreted by me. 07/09/18 20:00 CXR Impression: As read by me, right lower lobe infiltrates and left lower lobe infiltrates. 07/09/18 20:09 Code sepsis called. 07/09/18 20:54 Case discussed with medical coding specialist and Dr. Lewis for ICU consult. 07/09/18 20:[address] Brown who is aware and agrees with the plan. Accepts patient into her service. - Lab Interpretations Lab Results: pO2 44 mm/Hg (30-55) 07/09/18 20:00 VBG pH 7.38 (7.32-7.43) 07/09/18 20:00 VBG pCO2 48.0 (40-60) 07/09/18 20:00 VBG HCO3 28.4 mmol/l (21-28) H 07/09/18 20:00 VBG Total CO2 29.9 mmol.L (22-28) H 07/09/18 20:00 VBG O2 Sat (Calc) 82.6 % (40-65) H 07/09/18 20:00 VBG Base Excess 2.5 mmol/L (0.0-2.0) H 07/09/18 20:00 VBG Potassium 3.8 mmol/L (3.6-5.2) 07/09/18 20:00 Sodium 139.0 mmol/L (132-148) 07/09/18 20:00 Chloride 99.0 mmol/L (98-107) 07/09/18 20:00 Glucose 125 mg/dl (75-110) H 07/09/18 20:00 Lactate 3.6 mmol/L (0.7-2.1) H 07/09/18 20:00 FiO2 21.0 % 07/09/18 20:00 Crit Value Called To Joseph richmond 07/09/18 20:00 Crit Value Called By [place] 07/09/18 20:00 Blood Gas Notified Time 200807/09/18 20:00 I have reviewed the lab results: Yes - RAD Interpretation Radiology Orders: 07/09/18 19:50 CHEST PORTABLE [RAD] Stat Slps: ED Physician - EKG Interpretation Interpreted by ED Physician: Yes Type: 12 lead EKG - Medication Orders Current Medication Orders: Vancomycin HCl (Vancomycin 1gm) 1 gm in 250 mls @ 167 mls/hr IVPB STAT STA; Protocol Stop: 07/09/18 21:42 Last Admin: 07/09/18 20:21 Dose: 167 mls/hr eMAR Start Stop Document 07/09/18 20:21 AD (Rec: 07/09/18 20:22 AD [id number]) Intravenous Solution Start Date 07/09/18 Start Time 20:22 - Scribe Statement The provider has reviewed the documentation as recorded by the Deann Jeter Provider Scribe Attestation: All medical record entries made by the Deann were at my direction and personally dictated by me. I have reviewed the chart and agree that the record accurately reflects my personal performance of the history, physical exam, medical decision making, and the department course for this patient. I have also personally directed, reviewed, and agree with the discharge instructions and disposition. Disposition/Present on Arrival - Present on Arrival Any Indicators Present on Arrival: No History of DVT/PE: No History of Uncontrolled Diabetes: No Urinary Catheter: No History of Decub. Ulcer: No History Surgical Site Infection Following: None - Disposition Have Diagnosis and Disposition been Completed?: Yes Diagnosis: Pneumonia, COPD exacerbation Disposition: HOSPITALIZED Disposition Time: 20:55 Condition: FAIR
[2018-07-09 20:33] LABS: WHITE BLOOD COUNT 32.4 10^3/uL (4.5-11.0)
[2018-07-09 20:36] LABS: ALBUMIN 3.4 g/dL (3.0-4.8); CALCIUM 8.5 mg/dL (8.4-10.5); INR 1.91; PROTHROMBIN TIME 22.1 SECONDS (9.4-12.5); TROPONIN I 0.16 ng/mL
[2018-07-09] MEDS ORDERED: levoFLOXacin 750 mg in D5W 750 MG/150 ML BAG IVPB STA (20:39)
[2018-07-09] MEDS ORDERED: Sodium Chloride 0.9% 1,000 ML IV SCH ×2 (20:45→23:15)
[2018-07-09 21:04] LABS: BAND 6 % (0-2); LYMPHOCYTE 1 % (22.0-35.0); MONOCYTE 3 % (1.0-6.0); NEUTROPHIL 90 % (50.0-70.0)
[2018-07-09 21:23] LABS: ARTERIAL BLOOD GAS HCO3 25.1 mmol/L (21-28); ARTERIAL BLOOD GAS HEMOGLOBIN 15.7 g/dL (11.7-17.4); ARTERIAL BLOOD GAS O2 CAPACITY 21.6 mL/dl (16-24); ARTERIAL BLOOD GAS O2 CONTENT 21.7 ML/dl (15-23); ARTERIAL BLOOD GAS O2 SAT 100.5 % (95-98); ARTERIAL BLOOD GAS PCO2 37 mm/Hg (35-45); ARTERIAL BLOOD GAS PH 7.44 (7.35-7.45); ARTERIAL BLOOD GAS TCO2 26.2 mmol.L (22-28)
[2018-07-09] MEDS ORDERED: Albuterol-Ipratrop 3 mg / 0.5 (3 ml) UD IH PRN (21:59)
[2018-07-09] MEDS ORDERED: Budesonide 0.5 mg/2 ml Inhal Susp UD IH SCH (22:00)
--- NOTE | 2018-07-09 22:13 | CP.PCM.CON ---
<Howard Fontaine - Last Filed: 07/09/18 23:08> History of Present Illness - History of Present Illness History of Present Illness: PGY-2 ICU consult note for Dr Oliver Mr Martínez is a 83 year old male with a PMHx of COPD on home oxygen, severe pulmonary HTN, sleep apnea, depression/anxiety, AFib, HTN who presents from subacute rehab, [facility], due to difficulty breathing. History was collected by daughter who was at bedside as patient was too fatigued to answer questions. Patient was recently admitted for COPD exacerbation and bronchitis - he was transferred to [facility] where he was doing well up until 2 days ago when patient felt weaker and began to have shortness of breath. He was brought to the ER and code sepsis was called - he was tachycardic, had a temp of 102, had wbc of 30 with cxr showing bilateral pulmonary infiltrates. Patient denied chest pain, bleeding, abd pain, GI symptoms, urinary symptoms, productive cough. PMHx: COPD on home oxygen, severe pulmonary HTN, sleep apnea, depression/anxiety, AFib, HTN PSHx: hernia repair SocialHx: 30+ pack year smoking hx, no alcohol Allergies: NKA FamHx: unknown PMD: Dr. Brown Flame Hardening Machine Operator: Dr. Gan Cardio: Dr. Davis Review of Systems - Review of Systems All systems: reviewed and no additional remarkable complaints except (as stated in HPI) Past Patient History - Infectious Disease Hx of Infectious Diseases: None - Tetanus Immunizations Tetanus Immunization: Unknown - Past Social History Smoking Status: Former Smoker - CARDIAC Hx Hypertension: Yes (pulmonary) - PULMONARY Hx Chronic Obstructive Pulmonary Disease (COPD): Yes - NEUROLOGICAL Hx Neurological Disorder: Yes (vertigo) Other/Comment: menieres disease - HEENT Hx HEENT Problems: Yes (eyeglasses) Hx Cataracts: Yes (b/l sx) Other/Comment: bilateral hearing aids - RENAL Hx Chronic Kidney Disease: No - ENDOCRINE/METABOLIC Hx Endocrine Disorders: No - HEMATOLOGICAL/ONCOLOGICAL Hx Cancer: No - INTEGUMENTARY Hx Dermatological Problems: Yes Other/Comment: ble multiple skin discolorations, brown and deep red, deep red scab rle below knee, bue this dry skin with multiple skin discolorations - MUSCULOSKELETAL/RHEUMATOLOGICAL Hx Musculoskeletal Disorders: Yes Hx Falls: Yes Hx Unsteady Gait: Yes (walker) - GASTROINTESTINAL Hx Gastrointestinal Disorders: Yes Hx Gastroesophageal Reflux: Yes Other/Comment: gi bleed, colon polyps - GENITOURINARY/GYNECOLOGICAL Hx Genitourinary Disorders: No - PSYCHIATRIC Hx Psychophysiologic Disorder: Yes Hx Anxiety: Yes Hx Emotional Abuse: No Hx Panic Symptoms: Yes Hx Physical Abuse: No Hx Substance Use: No Other/Comment: difficulty sleeping, etoh and fell 2008 - SURGICAL HISTORY Other/Comment: colon sx, hernia repair inguinal and ventral - ANESTHESIA Hx Anesthesia: Yes Hx Anesthesia Reactions: No Hx Malignant Hyperthermia: No Meds Allergies/Adverse Reactions: Allergies Allergy/AdvReac Type Severity Reaction Status Date / Time No Known Allergies Allergy Verified 06/30/18 12:08 - Medications Medications: Current Medications Acetaminophen (Tylenol 325mg Tab) 650 mg PO Q6H PRN PRN Reason: Fever >100.4 F Albuterol/Ipratropium (Duoneb 3 Mg/0.5 Mg (3 Ml) Ud) 3 ml IH [id number] VICTOR HUGO Albuterol/Ipratropium (Duoneb 3 Mg/0.5 Mg (3 Ml) Ud) 3 ml IH Q2H PRN PRN Reason: Shortness of Breath Budesonide (Pulmicort Respules) 0.5 mg IH Q12H [facility] Levofloxacin/Dextrose (Levaquin 750mg) 750 mg in 150 mls @ 100 mls/hr IVPB STAT STA; Protocol Stop: 07/09/18 22:08 Sodium Chloride (Sodium Chloride 0.9%) 1,000 mls @ 80 mls/hr IV .[id number] [facility] Last Admin: 07/09/18 20:52 Dose: 80 mls/hr Metoprolol Tartrate (Lopressor) 25 mg PO 0800,1800 [facility] Sertraline HCl (Zoloft) 50 mg PO DAILY [facility] Physical Exam - Constitutional Appears: Toxic, In Acute Distress - Head Exam Head Exam: ATRAUMATIC, NORMAL INSPECTION - Eye Exam Eye Exam: EOMI, Normal appearance, PERRL. absent: Scleral icterus - ENT Exam ENT Exam: Mucous Membranes Dry - Neck Exam Neck exam: Positive for: Full Rom, Normal Inspection - Respiratory Exam Respiratory Exam: Wheezes, Respiratory Distress - Cardiovascular Exam Cardiovascular Exam: Tachycardia, REGULAR RHYTHM, +S1, +S2. absent: JVD, Systolic Murmur - GI/Abdominal Exam GI & Abdominal Exam: Normal Bowel Sounds, Soft. absent: Tenderness - Extremities Exam Extremities exam: Positive for: normal capillary refill, normal inspection, pedal pulses present - Neurological Exam Neurological exam: Alert, Oriented x3 - Psychiatric Exam Psychiatric exam: Anxious - Skin Skin Exam: Dry, Normal Color, Warm Additional comments: ecchymosis on legs b/l and left arm Results - Vital Signs Recent Vital Signs: Last Vital Signs Temp 102.1 F H 07/09/18 20:14 Pulse 109 H 07/09/18 20:34 Resp 14 07/09/18 20:34 BP 113/76 07/09/18 20:34 Pulse Ox 96 07/09/18 20:34 - Labs Result Diagrams: 07/09/18 20:00 07/09/18 20:00 Labs: Laboratory Results - last 24 hr 07/09/18 07/09/18 07/09/18 20:00 20:00 20:00 WBC 32.4 H* D RBC 5.39 Hgb 17.0 D Hct 50.7 MCV 94.1 MCH 31.5 MCHC 33.5 RDW 13.4 Plt Count 308 MPV 10.8 Gran % 91.4 H Lymph % (Auto) 2.4 L [place] % (Auto) 6.1 H Eos % (Auto) 0.0 L Baso % (Auto) 0.1 Gran # 29.58 H Lymph # (Auto) 0.8 L [place] # (Auto) 2.0 H Eos # (Auto) 0.0 Baso # (Auto) 0.03 Neutrophils % (Manual) 90 H Band Neutrophils % 6 H Lymphocytes % (Manual) 1 L Monocytes % (Manual) 3 PT 22.1 H INR 1.91 APTT 25.0 L pCO2 pO2 44 HCO3 ABG pH ABG Total CO2 ABG O2 Saturation ABG O2 Content ABG Base Excess ABG Hemoglobin ABG Carboxyhemoglobin POC ABG HHb (Measured) ABG Methemoglobin ABG O2 Capacity VBG pH 7.38 VBG pCO2 48.0 VBG HCO3 28.4 H VBG Total CO2 29.9 H VBG O2 Sat (Calc) 82.6 H VBG Base Excess 2.5 H VBG Potassium 3.8 Hgb O2 Saturation Sodium 139.0 Chloride 99.0 Glucose 125 H Lactate 3.6 H FiO2 21.0 Crit Value Called To Anga yi Crit Value Called By Blood Gas Notified Time 2008 Potassium Carbon Dioxide Anion Gap BUN Creatinine Est GFR ( Amer) Est GFR (Non-Af Amer) Random Glucose Calcium Magnesium Total Bilirubin AST ALT Alkaline Phosphatase Lactate Dehydrogenase Total Creatine Kinase Troponin I NT-Pro-B Natriuret Pep Total Protein Albumin Globulin Albumin/Globulin Ratio Venous Blood Potassium 3.8 Influenza Typ A,B (EIA) 07/09/18 07/09/18 07/09/18 20:00 20:02 21:19 WBC RBC Hgb Hct MCV MCH MCHC RDW Plt Count MPV Gran % Lymph % (Auto) [place] % (Auto) Eos % (Auto) Baso % (Auto) Gran # Lymph # (Auto) [place] # (Auto) Eos # (Auto) Baso # (Auto) Neutrophils % (Manual) Band Neutrophils % Lymphocytes % (Manual) Monocytes % (Manual) PT INR APTT pCO2 37 pO2 172.0 H HCO3 25.1 ABG pH 7.44 ABG Total CO2 26.2 ABG O2 Saturation 100.5 H ABG O2 Content 21.7 ABG Base Excess 1.2 ABG Hemoglobin 15.7 ABG Carboxyhemoglobin 2.3 H POC ABG HHb (Measured) -0.5 L ABG Methemoglobin 1.3 ABG O2 Capacity 21.6 VBG pH VBG pCO2 VBG HCO3 VBG Total CO2 VBG O2 Sat (Calc) VBG Base Excess VBG Potassium Hgb O2 Saturation 96.9 Sodium 140 Chloride 102 Glucose Lactate FiO2 100.0 Crit Value Called To Crit Value Called By Blood Gas Notified Time Potassium 3.9 Carbon Dioxide 28 Anion Gap 14 BUN 65 H Creatinine 1.8 H Est GFR ( Amer) 44 Est GFR (Non-Af Amer) 36 Random Glucose 124 H Calcium 8.5 Magnesium 3.0 H Total Bilirubin 0.9 AST 31 ALT 26 Alkaline Phosphatase 92 Lactate Dehydrogenase 921 H Total Creatine Kinase 52 Troponin I 0.16 H* D NT-Pro-B Natriuret Pep 3530 H Total Protein 6.9 Albumin 3.4 Globulin 3.5 Albumin/Globulin Ratio 1.0 L Venous Blood Potassium Influenza Typ A,B (EIA) Negative for flu a/b Assessment & Plan - Assessment and Plan (Free Text) Plan: Mr Martínez is a 83 year old male with a PMHx of COPD on home oxygen, severe pulmonary HTN, sleep apnea, depression/anxiety, AFib, HTN who presents from subacute rehab, [facility], due to difficulty breathing: Pulmonary -hx of COPD on home oxygen 2L; severe pulmonary HTN -consult pulmonology, Dr Gan -patient placed on bipap -abg drawn while on bipap - pH 7.44, pCO2 37 -xopenox q6h victor hugo, spiriva q12h victor hugo, budesonide 0.5mg ih q12h victor hugo Infectious Disease -code sepsis called in ER -chest xray with bilateral infiltrates (pending official report), Tmax 102.1, leukocytosis however recently on steroids, lactate elevated at 3.6 -consult ID, Dr Magdaleno -flu swab negative -f/u procalc, strep pneumoniae, legionella, mycoplasma, blood cx, urine cx, MRSA swab pcr -bolus 2L NS and start on maintenance 100cc/hr NS -tylenol 650mg po q6h for fever -vancomycin 1g q24h (renal dose), levaquin 750mg ivpb q24h, zosyn 3.375g ivpb q6h Cardiovascular -recent stress test on 05/29/19 - probably abnormal SPECT myocardial perfusion study -recent echo on 03/2018 showed LV normal size, mild concentric LV hypertrophy, ejection fraction normal, normal LV segmental wall motion, grade I-abnormal relaxation pattern, moderate tricuspid regurgitation, severe pulmonary HTN -consult cardiology, Dr Davis -NSTEMI with trop of 0.16, f/u serial trops, f/u repeat ekg -probnp 3530 -metoprolol tartrate 25mg po bid (with holding parameters) Renal -DEBORAH, pre-renal likely 2/2 hypovolemia -BUN/Cr on admission: 65/1.8 -bolus 2L NS, recheck BUN/Cr in AM Psychiatry -hx of depression/anxiety -continue home med zoloft 50mg po qd -hold home med xanax, remeron for now PPx -SCDs -heparin 5000u q12h -HHD -Fall precautions - had fall on previous admission -aspiration precautions Seen and discussed with Dr Oliver <Mason Oliver - Last Filed: 07/10/18 06:51> Meds - Medications Medications: Current Medications Acetaminophen (Tylenol 325mg Tab) 650 mg PO Q6H PRN PRN Reason: Fever >100.4 F Last Admin: 07/09/18 22:22 Dose: 650 mg Budesonide (Pulmicort Respules) 0.5 mg IH Q12H [facility] Last Admin: 07/09/18 22:23 Dose: 0.5 mg Heparin Sodium (Porcine) (Heparin) 5,000 units SC Q12H [facility]CTOR HUGO; Protocol Vancomycin HCl (Vancomycin 1gm) 1 gm in 250 mls @ 167 mls/hr IVPB DAILY [facility]; Protocol Sodium Chloride (Sodium Chloride 0.9%) 1,000 mls @ 100 mls/hr IV .Q10H [facility] Last Admin: 07/10/18 00:23 Dose: 100 mls/hr Cefepime HCl 0.5 gm/ Sodium (Chloride) 100 mls @ 100 mls/hr IVPB Q24H [facility] HU[facility]; Protocol Levalbuterol HCl (Xopenex) 0.63 mg IH Q6H [facility] Last Admin: 07/10/18 06:40 Dose: 0.63 mg Levofloxacin/Dextrose (Levaquin 750mg) 750 mg IVPB Q48H [facility] HUGO; Protocol Metoprolol Tartrate (Lopressor) 25 mg PO 0800,1800 [facility] Pantoprazole Sodium (Protonix Ec Tab) 40 mg PO 0600 [facility] Last Admin: 07/10/18 06:15 Dose: 40 mg Sertraline HCl (Zoloft) 50 mg PO DAILY [facility] Tiotropium Nolan (Spiriva) 18 mcg IH DAILY [facility] Results - Vital Signs Recent Vital Signs: Last Vital Signs Temp 98.3 F 07/10/18 00:07 Pulse 83 07/10/18 02:30 Resp 28 H 07/10/18 00:07 BP 104/47 L 07/09/18 23:30 Pulse Ox 97 07/09/18 23:30 - Labs Result Diagrams: 07/09/18 20:00 07/09/18 20:00 Labs: Laboratory Results - last 24 hr 07/09/18 07/09/18 07/09/18 20:00 20:00 20:00 WBC 32.4 H* D RBC 5.39 Hgb 17.0 D Hct 50.7 MCV 94.1 MCH 31.5 MCHC 33.5 RDW 13.4 Plt Count 308 MPV 10.8 Gran % 91.4 H Lymph % (Auto) 2.4 L [place] % (Auto) 6.1 H Eos % (Auto) 0.0 L Baso % (Auto) 0.1 Gran # 29.58 H Lymph # (Auto) 0.8 L [place] # (Auto) 2.0 H Eos # (Auto) 0.0 Baso # (Auto) 0.03 Neutrophils % (Manual) 90 H Band Neutrophils % 6 H Lymphocytes % (Manual) 1 L Monocytes % (Manual) 3 PT 22.1 H INR 1.91 APTT 25.0 L pCO2 pO2 44 HCO3 ABG pH ABG Total CO2 ABG O2 Saturation ABG O2 Content ABG Base Excess ABG Hemoglobin ABG Carboxyhemoglobin POC ABG HHb (Measured) ABG Methemoglobin ABG O2 Capacity VBG pH 7.38 VBG pCO2 48.0 VBG HCO3 28.4 H VBG Total CO2 29.9 H VBG O2 Sat (Calc) 82.6 H VBG Base Excess 2.5 H VBG Potassium 3.8 Hgb O2 Saturation Sodium 139.0 Chloride 99.0 Glucose 125 H Lactate 3.6 H FiO2 21.0 Crit Value Called To Joseph richmond Crit Value Called By Es Blood Gas Notified Time 2008 Potassium Carbon Dioxide Anion Gap BUN Creatinine Est GFR ( Amer) Est GFR (Non-Af Amer) POC Glucose (mg/dL) Random Glucose Lactic Acid Calcium Magnesium Total Bilirubin AST ALT Alkaline Phosphatase Lactate Dehydrogenase Total Creatine Kinase Troponin I NT-Pro-B Natriuret Pep Total Protein Albumin Globulin Albumin/Globulin Ratio Venous Blood Potassium 3.8 Influenza Typ A,B (EIA) 07/09/18 07/09/18 07/09/18 20:00 20:02 21:19 WBC RBC Hgb Hct MCV MCH MCHC RDW Plt Count MPV Gran % Lymph % (Auto) [place] % (Auto) Eos % (Auto) Baso % (Auto) Gran # Lymph # (Auto) [place] # (Auto) Eos # (Auto) Baso # (Auto) Neutrophils % (Manual) Band Neutrophils % Lymphocytes % (Manual) Monocytes % (Manual) PT INR APTT pCO2 37 pO2 172.0 H HCO3 25.1 ABG pH 7.44 ABG Total CO2 26.2 ABG O2 Saturation 100.5 H ABG O2 Content 21.7 ABG Base Excess 1.2 ABG Hemoglobin 15.7 ABG Carboxyhemoglobin 2.3 H POC ABG HHb (Measured) -0.5 L ABG Methemoglobin 1.3 ABG O2 Capacity 21.6 VBG pH VBG pCO2 VBG HCO3 VBG Total CO2 VBG O2 Sat (Calc) VBG Base Excess VBG Potassium Hgb O2 Saturation 96.9 Sodium 140 Chloride 102 Glucose Lactate FiO2 100.0 Crit Value Called To Crit Value Called By Blood Gas Notified Time Potassium 3.9 Carbon Dioxide 28 Anion Gap 14 BUN 65 H Creatinine 1.8 H Est GFR ( Amer) 44 Est GFR (Non-Af Amer) 36 POC Glucose (mg/dL) Random Glucose 124 H Lactic Acid Calcium 8.5 Magnesium 3.0 H Total Bilirubin 0.9 AST 31 ALT 26 Alkaline Phosphatase 92 Lactate Dehydrogenase 921 H Total Creatine Kinase 52 Troponin I 0.16 H* D NT-Pro-B Natriuret Pep 3530 H Total Protein 6.9 Albumin 3.4 Globulin 3.5 Albumin/Globulin Ratio 1.0 L Venous Blood Potassium Influenza Typ A,B (EIA) Negative for flu a/b 07/09/18 07/09/18 07/10/18 23:00 23:49 02:20 WBC RBC Hgb Hct MCV MCH MCHC RDW Plt Count MPV Gran % Lymph % (Auto) [place] % (Auto) Eos % (Auto) Baso % (Auto) Gran # Lymph # (Auto) [place] # (Auto) Eos # (Auto) Baso # (Auto) Neutrophils % (Manual) Band Neutrophils % Lymphocytes % (Manual) Monocytes % (Manual) PT INR APTT pCO2 pO2 113 H HCO3 ABG pH ABG Total CO2 ABG O2 Saturation ABG O2 Content ABG Base Excess ABG Hemoglobin ABG Carboxyhemoglobin POC ABG HHb (Measured) ABG Methemoglobin ABG O2 Capacity VBG pH 7.23 L VBG pCO2 42.0 VBG HCO3 17.6 L VBG Total CO2 18.9 L VBG O2 Sat (Calc) 100.1 H VBG Base Excess -9.6 L VBG Potassium 3.0 L Hgb O2 Saturation Sodium 109.0 L* Chloride 74.0 L Glucose > 750 H* D Lactate 1.8 FiO2 21.0 Crit Value Called To Alena richmond rn medicare Crit Value Called By Jsm Blood Gas Notified Time 232 Potassium Carbon Dioxide Anion Gap BUN Creatinine Est GFR ( Amer) Est GFR (Non-Af Amer) POC Glucose (mg/dL) 114 H Random Glucose Lactic Acid Calcium Magnesium Total Bilirubin AST ALT Alkaline Phosphatase Lactate Dehydrogenase Total Creatine Kinase Troponin I 0.19 H* NT-Pro-B Natriuret Pep Total Protein Albumin Globulin Albumin/Globulin Ratio Venous Blood Potassium 3.0 L Influenza Typ A,B (EIA) 07/10/18 02:20 WBC RBC Hgb Hct MCV MCH MCHC RDW Plt Count MPV Gran % Lymph % (Auto) [place] % (Auto) Eos % (Auto) Baso % (Auto) Gran # Lymph # (Auto) [place] # (Auto) Eos # (Auto) Baso # (Auto) Neutrophils % (Manual) Band Neutrophils % Lymphocytes % (Manual) Monocytes % (Manual) PT INR APTT pCO2 pO2 HCO3 ABG pH ABG Total CO2 ABG O2 Saturation ABG O2 Content ABG Base Excess ABG Hemoglobin ABG Carboxyhemoglobin POC ABG HHb (Measured) ABG Methemoglobin ABG O2 Capacity VBG pH VBG pCO2 VBG HCO3 VBG Total CO2 VBG O2 Sat (Calc) VBG Base Excess VBG Potassium Hgb O2 Saturation Sodium Chloride Glucose Lactate FiO2 Crit Value Called To Crit Value Called By Blood Gas Notified Time Potassium Carbon Dioxide Anion Gap BUN Creatinine Est GFR ( Amer) Est GFR (Non-Af Amer) POC Glucose (mg/dL) Random Glucose Lactic Acid 2.0 Calcium Magnesium Total Bilirubin AST ALT Alkaline Phosphatase Lactate Dehydrogenase Total Creatine Kinase Troponin I NT-Pro-B Natriuret Pep Total Protein Albumin Globulin Albumin/Globulin Ratio Venous Blood Potassium Influenza Typ A,B (EIA) Attending/Attestation - Attestation I have personally seen and examined this patient.: Yes I have fully participated in the care of the patient.: Yes I have reviewed all pertinent clinical information: Yes Notes (Text): Patient seen and examined with the resident, agree with above Presents with worsening dyspnea over the past few days noted by daughter at bedside acute on chronic resp failure owing to COPD on 2L NC with underlying bilateral pna CODE SEPSIS - leukocytosis with a left shift (elevated neutrophils with bandemia), fever, elevated LA HCAP - ABx with Vanco/Zosyn and Levaquin (double Pseudomonas coverage) given his recent hospitalization Monitor hemodynamics in the ICU setting; continue with ivf. Plan of care made aware to the patient and daughter Further diagnostics and/or intervention as hospital course progresses.
[2018-07-09] MEDS ORDERED: Sodium Chloride 0.9% 1,000 ML IV STA ×2 (22:27)
[2018-07-09] MEDS ORDERED: Piperacillin/Tazobact 3.375 gm 100 ML IVPB SCH (23:00)
[2018-07-09 23:25] LABS: VENOUS BLOOD GAS BASE EXCESS -9.6 mmol/L (0.0-2.0); VENOUS BLOOD GAS PO2 113 mm/Hg (30-55); VENOUS BLOOD PH 7.23 (7.32-7.43)
[2018-07-10] MEDS ORDERED: Albuterol-Ipratrop 3 mg / 0.5 (3 ml) UD IH SCH (02:00)
[2018-07-10] MEDS: Levalbuterol 0.63 MG/3 ML Inhal Soln UD IH SCH ×2 (02:30→06:40)
[2018-07-10] MEDS ORDERED: Pantoprazole 40 mg EC Tab PO SCH (06:00)
[2018-07-10 07:11] LABS: BASO # 0.02 K/mm3 (0.0-2.0); BASO % 0.1 % (0.0-3.0); GRAN # 18.48 (1.4-6.5); GRAN % 94.2 % (50.0-68.0); HEMOGLOBIN 15.9 g/dL (14.0-18.0); LYMPH # 0.6 (1.2-3.4); LYMPH % 3.2 % (22.0-35.0); MEAN CELL VOLUME 96.5 fl (80.0-105.0); MEAN CORPUSCULAR HEMOGLOBIN 30.9 pg (25.0-35.0); MEAN PLATELET VOLUME 11.1 fl (7.0-11.0); MONO # 0.5 (0.1-0.6); MONO % 2.5 % (1.0-6.0); RBC 5.15 10^6/uL (3.5-6.1); RED CELL DISTRIBUTION WIDTH 13.6 % (11.5-14.5); WHITE BLOOD COUNT 19.6 10^3/uL (4.5-11.0)
[2018-07-10 07:17] LABS: ALB/GLOB RATIO 0.9 (1.1-1.8)
[2018-07-10] MEDS ORDERED: Etomidate 20 mg/10ml Inj IV ONE (07:28)
[2018-07-10] MEDS ORDERED: Propofol 10 mg/ml 1,000 MG/100 ML VIAL ONE (07:28)
[2018-07-10] MEDS ORDERED: Morphine 2 mg/ml ISec IVP STA ×2 (07:35→09:53)
[2018-07-10] MEDS ORDERED: Acetylcysteine 20% Inhal Soln (4ml) IH STA (08:45)
[2018-07-10] MEDS ORDERED: Sodium Chloride 0.9% 1,000 ML IV SCH (09:53)
--- NOTE | 2018-07-10 09:56 | CARD ---
APPROVED REPORT Date of service: 07/09/2018 EKG Measurement Heart [id number] <Conclusion> Sinus tachycardia with premature supraventricular complexes Nonspecific ST abnormality Abnormal ECG
[2018-07-10] MEDS ORDERED: Tiotropium 18 mcg Cap For Inhalation IH SCH ×2 (10:00)
[2018-07-10] MEDS ORDERED: Enoxaparin 60 mg Syringe SC SCH (10:00)
[2018-07-10] MEDS ORDERED: Cefepime 0.5 GM in Sodium Chloride 0.9% 100 ML IVPB SCH (10:00)
[2018-07-10] MEDS ORDERED: Vancomycin 1gm in NS 250ml 1 GM/250 ML BAG IVPB SCH (10:00)
--- NOTE | 2018-07-10 10:19 | CP.PCM.PN ---
Subjective - Date & Time of Evaluation Date of Evaluation: 07/10/18 Time of Evaluation: 10:16 - Subjective Subjective: Patient seen and examined this morning. Patient noted to be in worsening resp distress this radha, sat 82% on BIPAP, decision was made to intubate patient. But after speaking with POA/HCP son Julio César, he informed the medical team that the patient is DNR/DNI, comfort measures only. Patient as coninued on BIPAP, started on IV sterods, Abx continued, morphine PA. Subsequently patient at 10:11AM amiy, including POA/Julio César Martínez a bedside. Objective - Vital Signs/Intake and Output Vital Signs (last 24 hours): Temp Pulse Resp BP Pulse Ox 98.3 F 95 H 28 H 104/47 L 97 07/10/18 00:07 07/10/18 06:00 07/10/18 00:07 07/09/18 23:30 07/09/18 23:30 Intake and Output: 07/10/18 07/10/18 06:59 18:59 Intake Total 700 Output Total 90 Balance 610 - Medications Medications: Current Medications Acetaminophen (Tylenol 325mg Tab) 650 mg PO Q6H PRN PRN Reason: Fever >100.4 F Last Admin: 07/09/18 22:22 Dose: 650 mg Budesonide (Pulmicort Respules) 0.5 mg IH Q12H [facility] Last Admin: 07/09/18 22:23 Dose: 0.5 mg Enoxaparin Sodium (Lovenox) 60 mg SC DAILY [facility]; Protocol Furosemide (Lasix) 40 mg IV DAILY [facility] Vancomycin HCl (Vancomycin 1gm) 1 gm in 250 mls @ 167 mls/hr IVPB DAILY [facility]; Protocol Cefepime HCl 0.5 gm/ Sodium (Chloride) 100 mls @ 100 mls/hr IVPB Q24H [facility]; Protocol Potassium Chloride (Potassium Chloride 10 Meq/100 Ml) 10 meq in 100 mls @ 50 mls/hr IVPB ONCE ONE Stop: 07/10/18 10:28 Last Admin: 07/10/18 08:47 Dose: 50 mls/hr Sodium Chloride (Sodium Chloride 0.9%) 1,000 mls @ 40 mls/hr IV .Q24H [facility] Potassium Chloride (Potassium Chloride 20 Meq/100 Ml) 20 meq in 100 mls @ 50 mls/hr IVPB ONCE ONE Stop: 07/10/18 11:59 Levalbuterol HCl (Xopenex) 0.63 mg IH Q6H [facility] Last Admin: 07/10/18 06:40 Dose: 0.63 mg Levofloxacin/Dextrose (Levaquin 750mg) 750 mg IVPB Q48H [facility]; Protocol Methylprednisolone (Solu-Medrol) 60 mg IVP Q8H [facility] Last Admin: 07/10/18 07:53 Dose: 60 mg Metoprolol Tartrate (Lopressor) 25 mg PO 0800,1800 [facility] Pantoprazole Sodium (Protonix Ec Tab) 40 mg PO 0600 [facility] Last Admin: 07/10/18 06:15 Dose: 40 mg Sertraline HCl (Zoloft) 50 mg PO DAILY [facility] Tiotropium [place] (Spiriva) 18 mcg IH DAILY [facility] - Labs Labs: 07/10/18 06:30 07/10/18 06:30 PT 22.1 SECONDS (9.4-12.5) H 07/09/18 20:00 INR 1.91 07/09/18 20:00 APTT 25.0 Seconds (25.1-36.5) L 07/09/18 20:00
--- NOTE | 2018-07-10 10:21 | RAD ---
Date of service: 07/09/2018 HISTORY: sob COMPARISON: 07/01/2018 FINDINGS: LUNGS: There is a patchy infiltrate in the periphery of the right upper lobe. There is a left-sided perihilar infiltrate PLEURA: No significant pleural effusion identified, no pneumothorax apparent. CARDIOVASCULAR: Aortic calcification Normal cardiac size. No pulmonary vascular congestion. OSSEOUS STRUCTURES: No significant abnormalities. VISUALIZED UPPER ABDOMEN: Normal. OTHER FINDINGS: None. IMPRESSION: There is a patchy infiltrate in the periphery of the right upper lobe. There is a left-sided perihilar infiltrate
[2018-07-10 10:30] VITALS: BP 110/17; PULSE 33; RESP 7; O2SAT 63
--- NOTE | 2018-07-10 10:30 | RAD ---
Date of service: 07/10/2018 HISTORY: PNA COMPARISON: 07/09/2018 FINDINGS: LUNGS: Slight increase in right-sided infiltrate. No change in left perihilar infiltrate PLEURA: No significant pleural effusion identified, no pneumothorax apparent. CARDIOVASCULAR: Aortic calcification Normal cardiac size. No pulmonary vascular congestion. OSSEOUS STRUCTURES: No significant abnormalities. VISUALIZED UPPER ABDOMEN: Normal. OTHER FINDINGS: None. IMPRESSION: Slight increase in right-sided infiltrate. No change in left perihilar infiltrate
--- NOTE | 2018-07-10 10:30 | CP.CCUPN ---
CCU Subjective - Physician Review Subjective (Free Text): 07/10/18 10:20 Upon morning sign out patient was noted to be in respiratory distress on BiPAP. Patient was evaluated and plan for intubation was initiated for increased respiratory effort. Further evaluation of the patient's goals of care were examined and family members were contacted. Patient's daughter was contacted in the AM and contact information for the Power of Licensed Staff [employer]ft Julio César Martínez was provided. The POA was contacted and informed of his father's current medical condition and questioned on patient's code status. At that time the POA informed myself that he had paperwork stating patient's wishes for DNR/DNI. An over the phone DNR/DNI order was placed with 2 nurse confirmation. Comfort measures were initiated and patient was given IV steroids, IV antibiotics, supplemental O2, BiPAP, IV morphine and IV Ativan for management of his respiratory distress. Patient respiratory status continued to diminish and he subsequently at 10:11 AM. CCU Objective - Vital Signs / Intake & Output Intake and Output (Last 8hrs): Intake & Output 07/09/18 07/10/18 07/10/18 22:59 06:59 14:59 Intake Total 700 Output Total 90 Balance 610 Weight 148 lb 148 lb Intake: IV 700 Right Wrist 700 Output: Urine 90 Urine, Voided 90 Stool 0 Emesis 0 - Physical Exam Head: Positive for: Atraumatic, Normocephalic Pupils: Positive for: PERRL Extroacular Muscles: Positive for: EOMI Conjunctiva: Positive for: Normal Mouth: Positive for: Moist Mucous Membranes Neck: Positive for: Normal Range of Motion Respiratory/Chest: Positive for: Rhonchi (bilaterally). Negative for: Respiratory Distress, Accessory Muscle Use Cardiovascular: Positive for: Regular Rate and Rhythm, Normal S1, S2. Negative for: Murmurs Abdomen: Negative for: Tenderness, Distention, Peritoneal Signs Back: Positive for: Normal Inspection Upper Extremity: Positive for: Normal Inspection. Negative for: Cyanosis, Edema Lower Extremity: Positive for: Normal Inspection. Negative for: Edema Neurological: Positive for: GCS=15, CN II-XII Intact, Speech Normal Skin: Positive for: Warm, Dry, Normal Color. Negative for: Rashes Psychiatric: Positive for: Alert, Oriented x 3, Normal Insight, Normal Concentration - Medications Active Medications: Active Medications Generic Name Dose Route Start Last Admin Trade Name Freq PRN Reason Stop Dose Admin Acetaminophen 650 mg 07/09/18 21:56 07/09/18 22:22 Tylenol 325mg Tab PO 650 mg Q6H PRN Administration Fever >100.4 F Budesonide 0.5 mg 07/09/18 22:00 07/09/18 22:23 Pulmicort Respules IH 0.5 mg Q12H JESE Administration Enoxaparin Sodium 60 mg 07/10/18 10:00 Lovenox SC DAILY [facility] Protocol Furosemide 40 mg 07/11/18 10:00 Lasix IV DAILY [facility] Vancomycin HCl 1 gm in 250 mls @ 167 mls/hr 07/10/18 10:00 Vancomycin 1gm IVPB DAILY [facility] Protocol Cefepime HCl 0.5 gm/ Sodium 100 mls @ 100 mls/hr 07/10/18 10:00 Chloride IVPB Q24H [facility] Protocol Potassium Chloride 10 meq in 100 mls @ 50 mls/hr 07/10/18 08:29 07/10/18 08:47 Potassium Chloride 10 Meq/100 Ml IVPB 07/10/18 10:28 50 mls/hr ONCE ONE Administration Sodium Chloride 1,000 mls @ 40 mls/hr 07/10/18 09:53 Sodium Chloride 0.9% IV .Q24H [facility]ESE Potassium Chloride 20 meq in 100 mls @ 50 mls/hr 07/10/18 10:00 Potassium Chloride 20 Meq/100 Ml IVPB 07/10/18 11:59 ONCE ONE Levalbuterol HCl 0.63 mg 07/09/18 23:15 07/10/18 06:40 Xopenex IH 0.63 mg Q6H JESE Administration Levofloxacin/Dextrose 750 mg 07/11/18 10:00 Levaquin 750mg IVPB Q48H [facility] Protocol Methylprednisolone 60 mg 07/10/18 07:36 07/10/18 07:53 Solu-Medrol IVP 60 mg Q8H JESE Administration Metoprolol Tartrate 25 mg 07/09/18 22:59 Lopressor PO 0800,1800 [facility] Pantoprazole Sodium 40 mg 07/10/18 06:00 07/10/18 06:15 Protonix Ec Tab PO 40 mg 0600 JESE Administration Sertraline HCl 50 mg 07/10/18 10:00 Zoloft PO DAILY [facility] Tiotropium [place] 18 mcg 07/10/18 10:00 Spiriva IH DAILY [facility]ESE - Patient Studies Lab Studies: Lab Studies 07/10/18 07/10/18 07/10/18 Range/Units 08:00 06:30 06:30 WBC 19.6 H D (4.5-11.0) 10^3/uL RBC 5.15 (3.5-6.1) 10^6/uL Hgb 15.9 (14.0-18.0) g/dL Hct 49.7 (42.0-52.0) % MCV 96.5 (80.0-105.0) fl MCH 30.9 (25.0-35.0) pg MCHC 32.0 (31.0-37.0) g/dl RDW 13.6 (11.5-14.5) % Plt Count 263 (120.0-450.0) 10^3/uL MPV 11.1 H (7.0-11.0) fl Gran % 94.2 H (50.0-68.0) % Lymph % (Auto) 3.2 L (22.0-35.0) % Payne % (Auto) 2.5 (1.0-6.0) % Eos % (Auto) 0.0 L (1.5-5.0) % Baso % (Auto) 0.1 (0.0-3.0) % Gran # 18.48 H (1.4-6.5) Lymph # (Auto) 0.6 L (1.2-3.4) Payne # (Auto) 0.5 (0.1-0.6) Eos # (Auto) 0.0 (0.0-0.7) Baso # (Auto) 0.02 (0.0-2.0) K/mm3 Neutrophils % (Manual) (50.0-70.0) % Band Neutrophils % (0-2) % Lymphocytes % (Manual) (22.0-35.0) % Monocytes % (Manual) (1.0-6.0) % PT (9.4-12.5) SECONDS INR APTT (25.1-36.5) Seconds pCO2 (35-45) mm/Hg pO2 (30-55) mm/Hg HCO3 (21-28) mmol/L ABG pH (7.35-7.45) ABG Total CO2 (22-28) mmol.L ABG O2 Saturation (95-98) % ABG O2 Content (15-23) ML/dl ABG Base Excess (-2.0-3.0) mmol/L ABG Hemoglobin (11.7-17.4) g/dL ABG Carboxyhemoglobin (0.5-1.5) % POC ABG HHb (Measured) (0-5) % ABG Methemoglobin (0.0-3.0) % ABG O2 Capacity (16-24) mL/dl VBG pH (7.32-7.43) VBG pCO2 (40-60) VBG HCO3 (21-28) mmol/l VBG Total CO2 (22-28) mmol.L VBG O2 Sat (Calc) (40-65) % VBG Base Excess (0.0-2.0) mmol/L VBG Potassium (3.6-5.2) mmol/L Hgb O2 Saturation (95.0-98.0) % Sodium 144 (132-148) mmol/L Chloride 107 (98-107) mmol/L Glucose (75-110) mg/dl Lactate (0.7-2.1) mmol/L FiO2 % Crit Value Called To Crit Value Called By Blood Gas Notified Time Potassium 3.5 L (3.6-5.0) mmol/L Carbon Dioxide 28 (21-33) mmol/L Anion Gap 12 (10-20) BUN 61 H (7-21) mg/dL Creatinine 1.9 H (0.8-1.5) mg/dl Est GFR ( Amer) 41 Est GFR (Non-Af Amer) 34 POC Glucose (mg/dL) (65-110) mg/dL Random Glucose 92 (70-110) mg/dL Lactic Acid (0.7-2.1) mmol/L Calcium 8.0 L (8.4-10.5) mg/dL Magnesium (1.7-2.2) mg/dL Total Bilirubin 1.3 (0.2-1.3) mg/dL AST 32 (17-59) U/L ALT 21 (7-56) U/L Alkaline Phosphatase 75 (38-126) U/L Lactate Dehydrogenase (333-699) U/L Total Creatine Kinase (35-230) U/L Troponin I 0.15 H* D ng/mL NT-Pro-B Natriuret Pep (0-450) pg/mL Total Protein 6.3 (5.8-8.3) g/dL Albumin 3.0 (3.0-4.8) g/dL Globulin 3.3 gm/dL Albumin/Globulin Ratio 0.9 L (1.1-1.8) Venous Blood Potassium (3.6-5.2) mmol/L Influenza Typ A,B (EIA) (NEGATIVE) 07/10/18 07/10/18 07/09/18 Range/Units 02:20 02:20 23:49 WBC (4.5-11.0) 10^3/uL RBC (3.5-6.1) 10^6/uL Hgb (14.0-18.0) g/dL Hct (42.0-52.0) % MCV (80.0-105.0) fl MCH (25.0-35.0) pg MCHC (31.0-37.0) g/dl RDW (11.5-14.5) % Plt Count (120.0-450.0) 10^3/uL MPV (7.0-11.0) fl Gran % (50.0-68.0) % Lymph % (Auto) (22.0-35.0) % Payne % (Auto) (1.0-6.0) % Eos % (Auto) (1.5-5.0) % Baso % (Auto) (0.0-3.0) % Gran # (1.4-6.5) Lymph # (Auto) (1.2-3.4) Payne # (Auto) (0.1-0.6) Eos # (Auto) (0.0-0.7) Baso # (Auto) (0.0-2.0) K/mm3 Neutrophils % (Manual) (50.0-70.0) % Band Neutrophils % (0-2) % Lymphocytes % (Manual) (22.0-35.0) % Monocytes % (Manual) (1.0-6.0) % PT (9.4-12.5) SECONDS INR APTT (25.1-36.5) Seconds pCO2 (35-45) mm/Hg pO2 (30-55) mm/Hg HCO3 (21-28) mmol/L ABG pH (7.35-7.45) ABG Total CO2 (22-28) mmol.L ABG O2 Saturation (95-98) % ABG O2 Content (15-23) ML/dl ABG Base Excess (-2.0-3.0) mmol/L ABG Hemoglobin (11.7-17.4) g/dL ABG Carboxyhemoglobin (0.5-1.5) % POC ABG HHb (Measured) (0-5) % ABG Methemoglobin (0.0-3.0) % ABG O2 Capacity (16-24) mL/dl VBG pH (7.32-7.43) VBG pCO2 (40-60) VBG HCO3 (21-28) mmol/l VBG Total CO2 (22-28) mmol.L VBG O2 Sat (Calc) (40-65) % VBG Base Excess (0.0-2.0) mmol/L VBG Potassium (3.6-5.2) mmol/L Hgb O2 Saturation (95.0-98.0) % Sodium (132-148) mmol/L Chloride (98-107) mmol/L Glucose (75-110) mg/dl Lactate (0.7-2.1) mmol/L FiO2 % Crit Value Called To Crit Value Called By Blood Gas Notified Time Potassium (3.6-5.0) mmol/L Carbon Dioxide (21-33) mmol/L Anion Gap (10-20) BUN (7-21) mg/dL Creatinine (0.8-1.5) mg/dl Est GFR ( Amer) Est GFR (Non-Af Amer) POC Glucose (mg/dL) 114 H (65-110) mg/dL Random Glucose (70-110) mg/dL Lactic Acid 2.0 (0.7-2.1) mmol/L Calcium (8.4-10.5) mg/dL Magnesium (1.7-2.2) mg/dL Total Bilirubin (0.2-1.3) mg/dL AST (17-59) U/L ALT (7-56) U/L Alkaline Phosphatase (38-126) U/L Lactate Dehydrogenase (333-699) U/L Total Creatine Kinase (35-230) U/L Troponin I 0.19 H* ng/mL NT-Pro-B Natriuret Pep (0-450) pg/mL Total Protein (5.8-8.3) g/dL Albumin (3.0-4.8) g/dL Globulin gm/dL Albumin/Globulin Ratio (1.1-1.8) Venous Blood Potassium (3.6-5.2) mmol/L Influenza Typ A,B (EIA) (NEGATIVE) 07/09/18 07/09/18 07/09/18 Range/Units 23:00 21:19 20:02 WBC (4.5-11.0) 10^3/uL RBC (3.5-6.1) 10^6/uL Hgb (14.0-18.0) g/dL Hct (42.0-52.0) % MCV (80.0-105.0) fl MCH (25.0-35.0) pg MCHC (31.0-37.0) g/dl RDW (11.5-14.5) % Plt Count (120.0-450.0) 10^3/uL MPV (7.0-11.0) fl Gran % (50.0-68.0) % Lymph % (Auto) (22.0-35.0) % Payne % (Auto) (1.0-6.0) % Eos % (Auto) (1.5-5.0) % Baso % (Auto) (0.0-3.0) % Gran # (1.4-6.5) Lymph # (Auto) (1.2-3.4) Payne # (Auto) (0.1-0.6) Eos # (Auto) (0.0-0.7) Baso # (Auto) (0.0-2.0) K/mm3 Neutrophils % (Manual) (50.0-70.0) % Band Neutrophils % (0-2) % Lymphocytes % (Manual) (22.0-35.0) % Monocytes % (Manual) (1.0-6.0) % PT (9.4-12.5) SECONDS INR APTT (25.1-36.5) Seconds pCO2 37 (35-45) mm/Hg pO2 113 H 172.0 H (30-55) mm/Hg HCO3 25.1 (21-28) mmol/L ABG pH 7.44 (7.35-7.45) ABG Total CO2 26.2 (22-28) mmol.L ABG O2 Saturation 100.5 H (95-98) % ABG O2 Content 21.7 (15-23) ML/dl ABG Base Excess 1.2 (-2.0-3.0) mmol/L ABG Hemoglobin 15.7 (11.7-17.4) g/dL ABG Carboxyhemoglobin 2.3 H (0.5-1.5) % POC ABG HHb (Measured) -0.5 L (0-5) % ABG Methemoglobin 1.3 (0.0-3.0) % ABG O2 Capacity 21.6 (16-24) mL/dl VBG pH 7.23 L (7.32-7.43) VBG pCO2 42.0 (40-60) VBG HCO3 17.6 L (21-28) mmol/l VBG Total CO2 18.9 L (22-28) mmol.L VBG O2 Sat (Calc) 100.1 H (40-65) % VBG Base Excess -9.6 L (0.0-2.0) mmol/L VBG Potassium 3.0 L (3.6-5.2) mmol/L Hgb O2 Saturation 96.9 (95.0-98.0) % Sodium 109.0 L* (132-148) mmol/L Chloride 74.0 L (98-107) mmol/L Glucose > 750 H* D (75-110) mg/dl Lactate 1.8 (0.7-2.1) mmol/L FiO2 21.0 100.0 % Crit Value Called To Alena richmond rn ed Crit Value Called By [facility] Blood Gas Notified Time 2323 Potassium (3.6-5.0) mmol/L Carbon Dioxide (21-33) mmol/L Anion Gap (10-20) BUN (7-21) mg/dL Creatinine (0.8-1.5) mg/dl Est GFR ( Amer) Est GFR (Non-Af Amer) POC Glucose (mg/dL) (65-110) mg/dL Random Glucose (70-110) mg/dL Lactic Acid (0.7-2.1) mmol/L Calcium (8.4-10.5) mg/dL Magnesium (1.7-2.2) mg/dL Total Bilirubin (0.2-1.3) mg/dL AST (17-59) U/L ALT (7-56) U/L Alkaline Phosphatase (38-126) U/L Lactate Dehydrogenase (333-699) U/L Total Creatine Kinase (35-230) U/L Troponin I ng/mL NT-Pro-B Natriuret Pep (0-450) pg/mL Total Protein (5.8-8.3) g/dL Albumin (3.0-4.8) g/dL Globulin gm/dL Albumin/Globulin Ratio (1.1-1.8) Venous Blood Potassium 3.0 L (3.6-5.2) mmol/L Influenza Typ A,B (EIA) Negative for flu a/b (NEGATIVE) 07/09/18 07/09/18 07/09/18 Range/Units 20:00 20:00 20:00 WBC (4.5-11.0) 10^3/uL RBC (3.5-6.1) 10^6/uL Hgb (14.0-18.0) g/dL Hct (42.0-52.0) % MCV (80.0-105.0) fl MCH (25.0-35.0) pg MCHC (31.0-37.0) g/dl RDW (11.5-14.5) % Plt Count (120.0-450.0) 10^3/uL MPV (7.0-11.0) fl Gran % (50.0-68.0) % Lymph % (Auto) (22.0-35.0) % Payne % (Auto) (1.0-6.0) % Eos % (Auto) (1.5-5.0) % Baso % (Auto) (0.0-3.0) % Gran # (1.4-6.5) Lymph # (Auto) (1.2-3.4) Payne # (Auto) (0.1-0.6) Eos # (Auto) (0.0-0.7) Baso # (Auto) (0.0-2.0) K/mm3 Neutrophils % (Manual) (50.0-70.0) % Band Neutrophils % (0-2) % Lymphocytes % (Manual) (22.0-35.0) % Monocytes % (Manual) (1.0-6.0) % PT 22.1 H (9.4-12.5) SECONDS INR 1.91 APTT 25.0 L (25.1-36.5) Seconds pCO2 (35-45) mm/Hg pO2 44 (30-55) mm/Hg HCO3 (21-28) mmol/L ABG pH (7.35-7.45) ABG Total CO2 (22-28) mmol.L ABG O2 Saturation (95-98) % ABG O2 Content (15-23) ML/dl ABG Base Excess (-2.0-3.0) mmol/L ABG Hemoglobin (11.7-17.4) g/dL ABG Carboxyhemoglobin (0.5-1.5) % POC ABG HHb (Measured) (0-5) % ABG Methemoglobin (0.0-3.0) % ABG O2 Capacity (16-24) mL/dl VBG pH 7.38 (7.32-7.43) VBG pCO2 48.0 (40-60) VBG HCO3 28.4 H (21-28) mmol/l VBG Total CO2 29.9 H (22-28) mmol.L VBG O2 Sat (Calc) 82.6 H (40-65) % VBG Base Excess 2.5 H (0.0-2.0) mmol/L VBG Potassium 3.8 (3.6-5.2) mmol/L Hgb O2 Saturation (95.0-98.0) % Sodium 140 139.0 (132-148) mmol/L Chloride 102 99.0 (98-107) mmol/L Glucose 125 H (75-110) mg/dl Lactate 3.6 H (0.7-2.1) mmol/L FiO2 21.0 % Crit Value Called To Joseph richmond Crit Value Called By Blood Gas Notified Time 2008 Potassium 3.9 (3.6-5.0) mmol/L Carbon Dioxide 28 (21-33) mmol/L Anion Gap 14 (10-20) BUN 65 H (7-21) mg/dL Creatinine 1.8 H (0.8-1.5) mg/dl Est GFR ( Amer) 44 Est GFR (Non-Af Amer) 36 POC Glucose (mg/dL) (65-110) mg/dL Random Glucose 124 H (70-110) mg/dL Lactic Acid (0.7-2.1) mmol/L Calcium 8.5 (8.4-10.5) mg/dL Magnesium 3.0 H (1.7-2.2) mg/dL Total Bilirubin 0.9 (0.2-1.3) mg/dL AST 31 (17-59) U/L ALT 26 (7-56) U/L Alkaline Phosphatase 92 (38-126) U/L Lactate Dehydrogenase 921 H (333-699) U/L Total Creatine Kinase 52 (35-230) U/L Troponin I 0.16 H* D ng/mL NT-Pro-B Natriuret Pep 3530 H (0-450) pg/mL Total Protein 6.9 (5.8-8.3) g/dL Albumin 3.4 (3.0-4.8) g/dL Globulin 3.5 gm/dL Albumin/Globulin Ratio 1.0 L (1.1-1.8) Venous Blood Potassium 3.8 (3.6-5.2) mmol/L Influenza Typ A,B (EIA) (NEGATIVE) 07/09/18 Range/Units 20:00 WBC 32.4 H* D (4.5-11.0) 10^3/uL RBC 5.39 (3.5-6.1) 10^6/uL Hgb 17.0 D (14.0-18.0) g/dL Hct 50.7 (42.0-52.0) % MCV 94.1 (80.0-105.0) fl MCH 31.5 (25.0-35.0) pg MCHC 33.5 (31.0-37.0) g/dl RDW 13.4 (11.5-14.5) % Plt Count 308 (120.0-450.0) 10^3/uL MPV 10.8 (7.0-11.0) fl Gran % 91.4 H (50.0-68.0) % Lymph % (Auto) 2.4 L (22.0-35.0) % Payne % (Auto) 6.1 H (1.0-6.0) % Eos % (Auto) 0.0 L (1.5-5.0) % Baso % (Auto) 0.1 (0.0-3.0) % Gran # 29.58 H (1.4-6.5) Lymph # (Auto) 0.8 L (1.2-3.4) Payne # (Auto) 2.0 H (0.1-0.6) Eos # (Auto) 0.0 (0.0-0.7) Baso # (Auto) 0.03 (0.0-2.0) K/mm3 Neutrophils % (Manual) 90 H (50.0-70.0) % Band Neutrophils % 6 H (0-2) % Lymphocytes % (Manual) 1 L (22.0-35.0) % Monocytes % (Manual) 3 (1.0-6.0) % PT (9.4-12.5) SECONDS INR APTT (25.1-36.5) Seconds pCO2 (35-45) mm/Hg pO2 (30-55) mm/Hg HCO3 (21-28) mmol/L ABG pH (7.35-7.45) ABG Total CO2 (22-28) mmol.L ABG O2 Saturation (95-98) % ABG O2 Content (15-23) ML/dl ABG Base Excess (-2.0-3.0) mmol/L ABG Hemoglobin (11.7-17.4) g/dL ABG Carboxyhemoglobin (0.5-1.5) % POC ABG HHb (Measured) (0-5) % ABG Methemoglobin (0.0-3.0) % ABG O2 Capacity (16-24) mL/dl VBG pH (7.32-7.43) VBG pCO2 (40-60) VBG HCO3 (21-28) mmol/l VBG Total CO2 (22-28) mmol.L VBG O2 Sat (Calc) (40-65) % VBG Base Excess (0.0-2.0) mmol/L VBG Potassium (3.6-5.2) mmol/L Hgb O2 Saturation (95.0-98.0) % Sodium (132-148) mmol/L Chloride (98-107) mmol/L Glucose (75-110) mg/dl Lactate (0.7-2.1) mmol/L FiO2 % Crit Value Called To Crit Value Called By Blood Gas Notified Time Potassium (3.6-5.0) mmol/L Carbon Dioxide (21-33) mmol/L Anion Gap (10-20) BUN (7-21) mg/dL Creatinine (0.8-1.5) mg/dl Est GFR ( Amer) Est GFR (Non-Af Amer) POC Glucose (mg/dL) (65-110) mg/dL Random Glucose (70-110) mg/dL Lactic Acid (0.7-2.1) mmol/L Calcium (8.4-10.5) mg/dL Magnesium (1.7-2.2) mg/dL Total Bilirubin (0.2-1.3) mg/dL AST (17-59) U/L ALT (7-56) U/L Alkaline Phosphatase (38-126) U/L Lactate Dehydrogenase (333-699) U/L Total Creatine Kinase (35-230) U/L Troponin I ng/mL NT-Pro-B Natriuret Pep (0-450) pg/mL Total Protein (5.8-8.3) g/dL Albumin (3.0-4.8) g/dL Globulin gm/dL Albumin/Globulin Ratio (1.1-1.8) Venous Blood Potassium (3.6-5.2) mmol/L Influenza Typ A,B (EIA) (NEGATIVE) Laboratory Results - last 24 hr 07/09/18 07/09/18 07/09/18 20:00 20:00 20:00 WBC 32.4 H* D RBC 5.39 Hgb 17.0 D Hct 50.7 MCV 94.1 MCH 31.5 MCHC 33.5 RDW 13.4 Plt Count 308 MPV 10.8 Gran % 91.4 H Lymph % (Auto) 2.4 L Payne % (Auto) 6.1 H Eos % (Auto) 0.0 L Baso % (Auto) 0.1 Gran # 29.58 H Lymph # (Auto) 0.8 L Payne # (Auto) 2.0 H Eos # (Auto) 0.0 Baso # (Auto) 0.03 Neutrophils % (Manual) 90 H Band Neutrophils % 6 H Lymphocytes % (Manual) 1 L Monocytes % (Manual) 3 PT 22.1 H INR 1.91 APTT 25.0 L pCO2 pO2 44 HCO3 ABG pH ABG Total CO2 ABG O2 Saturation ABG O2 Content ABG Base Excess ABG Hemoglobin ABG Carboxyhemoglobin POC ABG HHb (Measured) ABG Methemoglobin ABG O2 Capacity VBG pH 7.38 VBG pCO2 48.0 VBG HCO3 28.4 H VBG Total CO2 29.9 H VBG O2 Sat (Calc) 82.6 H VBG Base Excess 2.5 H VBG Potassium 3.8 Hgb O2 Saturation Sodium 139.0 Chloride 99.0 Glucose 125 H Lactate 3.6 H FiO2 21.0 Crit Value Called To Joseph richmond Crit Value Called By Es Blood Gas Notified Time 2008 Potassium Carbon Dioxide Anion Gap BUN Creatinine Est GFR ( Amer) Est GFR (Non-Af Amer) POC Glucose (mg/dL) Random Glucose Lactic Acid Calcium Magnesium Total Bilirubin AST ALT Alkaline Phosphatase Lactate Dehydrogenase Total Creatine Kinase Troponin I NT-Pro-B Natriuret Pep Total Protein Albumin Globulin Albumin/Globulin Ratio Venous Blood Potassium 3.8 Influenza Typ A,B (EIA) 07/09/18 07/09/18 07/09/18 20:00 20:02 21:19 WBC RBC Hgb Hct MCV MCH MCHC RDW Plt Count MPV Gran % Lymph % (Auto) Payne % (Auto) Eos % (Auto) Baso % (Auto) Gran # Lymph # (Auto) Payne # (Auto) Eos # (Auto) Baso # (Auto) Neutrophils % (Manual) Band Neutrophils % Lymphocytes % (Manual) Monocytes % (Manual) PT INR APTT pCO2 37 pO2 172.0 H HCO3 25.1 ABG pH 7.44 ABG Total CO2 26.2 ABG O2 Saturation 100.5 H ABG O2 Content 21.7 ABG Base Excess 1.2 ABG Hemoglobin 15.7 ABG Carboxyhemoglobin 2.3 H POC ABG HHb (Measured) -0.5 L ABG Methemoglobin 1.3 ABG O2 Capacity 21.6 VBG pH VBG pCO2 VBG HCO3 VBG Total CO2 VBG O2 Sat (Calc) VBG Base Excess VBG Potassium Hgb O2 Saturation 96.9 Sodium 140 Chloride 102 Glucose Lactate FiO2 100.0 Crit Value Called To Crit Value Called By Blood Gas Notified Time Potassium 3.9 Carbon Dioxide 28 Anion Gap 14 BUN 65 H Creatinine 1.8 H Est GFR ( Amer) 44 Est GFR (Non-Af Amer) 36 POC Glucose (mg/dL) Random Glucose 124 H Lactic Acid Calcium 8.5 Magnesium 3.0 H Total Bilirubin 0.9 AST 31 ALT 26 Alkaline Phosphatase 92 Lactate Dehydrogenase 921 H Total Creatine Kinase 52 Troponin I 0.16 H* D NT-Pro-B Natriuret Pep 3530 H Total Protein 6.9 Albumin 3.4 Globulin 3.5 Albumin/Globulin Ratio 1.0 L Venous Blood Potassium Influenza Typ A,B (EIA) Negative for flu a/b 07/09/18 07/09/18 07/10/18 23:00 23:49 02:20 WBC RBC Hgb Hct MCV MCH MCHC RDW Plt Count MPV Gran % Lymph % (Auto) Payne % (Auto) Eos % (Auto) Baso % (Auto) Gran # Lymph # (Auto) Payne # (Auto) Eos # (Auto) Baso # (Auto) Neutrophils % (Manual) Band Neutrophils % Lymphocytes % (Manual) Monocytes % (Manual) PT INR APTT pCO2 pO2 113 H HCO3 ABG pH ABG Total CO2 ABG O2 Saturation ABG O2 Content ABG Base Excess ABG Hemoglobin ABG Carboxyhemoglobin POC ABG HHb (Measured) ABG Methemoglobin ABG O2 Capacity VBG pH 7.23 L VBG pCO2 42.0 VBG HCO3 17.6 L VBG Total CO2 18.9 L VBG O2 Sat (Calc) 100.1 H VBG Base Excess -9.6 L VBG Potassium 3.0 L Hgb O2 Saturation Sodium 109.0 L* Chloride 74.0 L Glucose > 750 H* D Lactate 1.8 FiO2 21.0 Crit Value Called To Alena [facility] Crit Value Called By Leonidesm Blood Gas Notified Time 2324 Potassium Carbon Dioxide Anion Gap BUN Creatinine Est GFR ( Amer) Est GFR (Non-Af Amer) POC Glucose (mg/dL) 114 H Random Glucose Lactic Acid Calcium Magnesium Total Bilirubin AST ALT Alkaline Phosphatase Lactate Dehydrogenase Total Creatine Kinase Troponin I 0.19 H* NT-Pro-B Natriuret Pep Total Protein Albumin Globulin Albumin/Globulin Ratio Venous Blood Potassium 3.0 L Influenza Typ A,B (EIA) 07/10/18 07/10/18 07/10/18 02:20 06:30 06:30 WBC 19.6 H D RBC 5.15 Hgb 15.9 Hct 49.7 MCV 96.5 MCH 30.9 MCHC 32.0 RDW 13.6 Plt Count 263 MPV 11.1 H Gran % 94.2 H Lymph % (Auto) 3.2 L Payne % (Auto) 2.5 Eos % (Auto) 0.0 L Baso % (Auto) 0.1 Gran # 18.48 H Lymph # (Auto) 0.6 L Payne # (Auto) 0.5 Eos # (Auto) 0.0 Baso # (Auto) 0.02 Neutrophils % (Manual) Band Neutrophils % Lymphocytes % (Manual) Monocytes % (Manual) PT INR APTT pCO2 pO2 HCO3 ABG pH ABG Total CO2 ABG O2 Saturation ABG O2 Content ABG Base Excess ABG Hemoglobin ABG Carboxyhemoglobin POC ABG HHb (Measured) ABG Methemoglobin ABG O2 Capacity VBG pH VBG pCO2 VBG HCO3 VBG Total CO2 VBG O2 Sat (Calc) VBG Base Excess VBG Potassium Hgb O2 Saturation Sodium 144 Chloride 107 Glucose Lactate FiO2 Crit Value Called To Crit Value Called By Blood Gas Notified Time Potassium 3.5 L Carbon Dioxide 28 Anion Gap 12 BUN 61 H Creatinine 1.9 H Est GFR ( Amer) 41 Est GFR (Non-Af Amer) 34 POC Glucose (mg/dL) Random Glucose 92 Lactic Acid 2.0 Calcium 8.0 L Magnesium Total Bilirubin 1.3 AST 32 ALT 21 Alkaline Phosphatase 75 Lactate Dehydrogenase Total Creatine Kinase Troponin I NT-Pro-B Natriuret Pep Total Protein 6.3 Albumin 3.0 Globulin 3.3 Albumin/Globulin Ratio 0.9 L Venous Blood Potassium Influenza Typ A,B (EIA) 07/10/18 08:00 WBC RBC Hgb Hct MCV MCH MCHC RDW Plt Count MPV Gran % Lymph % (Auto) Payne % (Auto) Eos % (Auto) Baso % (Auto) Gran # Lymph # (Auto) Payne # (Auto) Eos # (Auto) Baso # (Auto) Neutrophils % (Manual) Band Neutrophils % Lymphocytes % (Manual) Monocytes % (Manual) PT INR APTT pCO2 pO2 HCO3 ABG pH ABG Total CO2 ABG O2 Saturation ABG O2 Content ABG Base Excess ABG Hemoglobin ABG Carboxyhemoglobin POC ABG HHb (Measured) ABG Methemoglobin ABG O2 Capacity VBG pH VBG pCO2 VBG HCO3 VBG Total CO2 VBG O2 Sat (Calc) VBG Base Excess VBG Potassium Hgb O2 Saturation Sodium Chloride Glucose Lactate FiO2 Crit Value Called To Crit Value Called By Blood Gas Notified Time Potassium Carbon Dioxide Anion Gap BUN Creatinine Est GFR ( Amer) Est GFR (Non-Af Amer) POC Glucose (mg/dL) Random Glucose Lactic Acid Calcium Magnesium Total Bilirubin AST ALT Alkaline Phosphatase Lactate Dehydrogenase Total Creatine Kinase Troponin I 0.15 H* D NT-Pro-B Natriuret Pep Total Protein Albumin Globulin Albumin/Globulin Ratio Venous Blood Potassium Influenza Typ A,B (EIA) EKG/Cardiology Studies: Cardiology / EKG Studies 07/09/18 19:33 ELECTROCARDIOGRAM Stat Comment: Reason For Exam: shortness of breath 07/10/18 07:00 ELECTROCARDIOGRAM Routine Comment: Reason For Exam: NSTEMI Critical Care Progress Note - Nutrition Nutrition: Nutrition Category Date Time Status Heart Healthy Diet [DIET] Diets 07/09/18 Breakfast Active
[2018-07-10 10:31] VITALS: TEMP 98
--- NOTE | 2018-07-10 10:48 | CP.PCM.PRO ---
Pronouncement of Note - Clinical Findings Physical Exam: No Response Verbal/Painful Stimuli, Absent Peripheral Puls es{Carotid & Femoral} - Pronouncement Time Time of Pronouncement of : 10:11 - Notifications Pronouncement Notifications: Family Notified, Atending Notified Bead Forming Machine Set Up Operator Notified: Yes [place]: Case # [id number]
--- NOTE | 2018-07-10 16:21 | CP.PCM.CON ---
History of Present Illness - History of Present Illness History of Present Illness: Infectious Disease Consultation: July 10, 2018 83 yo male with PMHx of COPD on home oxygen, severe pulmonary HTN, sleep apnea, depression/anxiety, AFib, HTN who presents from subacute rehab, [facility] due to difficulty breathing/SOB. Recently hospitalized for COPD exacerbation and bronchitis which he was discharged to [facility] on 07/05/2018. The patient was doing well until two days prior to admission where the patient became SOB. He was found to have fevers in the ER up to 102 F, tachycardic, and with leukocytosis. Chest X-ray showing bilateral pulmonary infiltrates. Patient is in poor condition. Admitted to MICU. PMHx: COPD on home O2, severe pulmonary HTN, sleep apnea, HTN, A Fib, depression, anxiety, hearing loss PSHx: hernia repair Allergies: NKDA Social Hx: 30+ pack year tobacco history No EtOH or illicit drug use History given by daughter Medications: reviewed in MAR Family Hx: none given ROS: SOB, fevers, tachycardia, wheezing No abdominal pain, chest pain, melena, hematuria, hematemesis, hematochezia Past Patient History - Infectious Disease Hx of Infectious Diseases: None - Tetanus Immunizations Tetanus Immunization: Unknown - Past Social History Smoking Status: Former Smoker - CARDIAC Hx Hypertension: Yes (pulmonary) - PULMONARY Hx Chronic Obstructive Pulmonary Disease (COPD): Yes - NEUROLOGICAL Hx Neurological Disorder: Yes (vertigo) Other/Comment: menieres disease - HEENT Hx HEENT Problems: Yes (eyeglasses) Hx Cataracts: Yes (b/l sx) Other/Comment: bilateral hearing aids - RENAL Hx Chronic Kidney Disease: No - ENDOCRINE/METABOLIC Hx Endocrine Disorders: No - HEMATOLOGICAL/ONCOLOGICAL Hx Cancer: No - INTEGUMENTARY Hx Dermatological Problems: Yes Other/Comment: ble multiple skin discolorations, brown and deep red, deep red scab rle below knee, bue this dry skin with multiple skin discolorations - MUSCULOSKELETAL/RHEUMATOLOGICAL Hx Musculoskeletal Disorders: Yes Hx Falls: Yes Hx Unsteady Gait: Yes (walker) - GASTROINTESTINAL Hx Gastrointestinal Disorders: Yes Hx Gastroesophageal Reflux: Yes Other/Comment: gi bleed, colon polyps - GENITOURINARY/GYNECOLOGICAL Hx Genitourinary Disorders: No - PSYCHIATRIC Hx Psychophysiologic Disorder: Yes Hx Anxiety: Yes Hx Emotional Abuse: No Hx Panic Symptoms: Yes Hx Physical Abuse: No Hx Substance Use: No Other/Comment: difficulty sleeping, etoh and fell 2008 - SURGICAL HISTORY Other/Comment: colon sx, hernia repair inguinal and ventral - ANESTHESIA Hx Anesthesia: Yes Hx Anesthesia Reactions: No Hx Malignant Hyperthermia: No Meds Allergies/Adverse Reactions: Allergies Allergy/AdvReac Type Severity Reaction Status Date / Time No Known Allergies Allergy Verified 06/30/18 12:08 Physical Exam - Constitutional Appears: Toxic, In Acute Distress, Chronically Ill - Head Exam Head Exam: ATRAUMATIC, NORMOCEPHALIC - Eye Exam Eye Exam: PERRL Pupil Exam: NORMAL ACCOMODATION, PERRL - ENT Exam ENT Exam: Mucous Membranes Moist, Normal External Ear Exam, TM's Normal Bilat erally - Respiratory Exam Respiratory Exam: Decreased Breath Sounds, Wheezes, Respiratory Distress - Cardiovascular Exam Cardiovascular Exam: Tachycardia, Irregular Rhythm, +S1, +S2 - GI/Abdominal Exam GI & Abdominal Exam: Normal Bowel Sounds, Soft. absent: Distended, Tenderness - Extremities Exam Extremities exam: Positive for: pedal pulses present. Negative for: joint swelling, pedal edema - Neurological Exam Neurological exam: Alert, CN II-XII Intact Additional comments: AAO x 1 - Psychiatric Exam Psychiatric exam: Anxious - Skin Additional comments: ecchymotic lesions to bilateral legs and left arm. Results - Vital Signs Recent Vital Signs: Last Vital Signs Temp 98 F 07/10/18 07:00 Pulse 33 L 07/10/18 10:07 Resp 7 L 07/10/18 10:11 BP 110/17 L 07/10/18 09:00 Pulse Ox 63 L 07/10/18 10:00 - Labs Result Diagrams: 07/10/18 06:30 07/10/18 06:30 Labs: Laboratory Results - last 24 hr 07/09/18 07/09/18 07/09/18 20:00 20:00 20:00 WBC 32.4 H* D RBC 5.39 Hgb 17.0 D Hct 50.7 MCV 94.1 MCH 31.5 MCHC 33.5 RDW 13.4 Plt Count 308 MPV 10.8 Gran % 91.4 H Lymph % (Auto) 2.4 L Morton % (Auto) 6.1 H Eos % (Auto) 0.0 L Baso % (Auto) 0.1 Gran # 29.58 H Lymph # (Auto) 0.8 L Morton # (Auto) 2.0 H Eos # (Auto) 0.0 Baso # (Auto) 0.03 Neutrophils % (Manual) 90 H Band Neutrophils % 6 H Lymphocytes % (Manual) 1 L Monocytes % (Manual) 3 PT 22.1 H INR 1.91 APTT 25.0 L pCO2 pO2 44 HCO3 ABG pH ABG Total CO2 ABG O2 Saturation ABG O2 Content ABG Base Excess ABG Hemoglobin ABG Carboxyhemoglobin POC ABG HHb (Measured) ABG Methemoglobin ABG O2 Capacity VBG pH 7.38 VBG pCO2 48.0 VBG HCO3 28.4 H VBG Total CO2 29.9 H VBG O2 Sat (Calc) 82.6 H VBG Base Excess 2.5 H VBG Potassium 3.8 Hgb O2 Saturation Sodium 139.0 Chloride 99.0 Glucose 125 H Lactate 3.6 H FiO2 21.0 Crit Value Called To Joseph richmond Crit Value Called By Es Blood Gas Notified Time 2008 Potassium Carbon Dioxide Anion Gap BUN Creatinine Est GFR ( Amer) Est GFR (Non-Af Amer) POC Glucose (mg/dL) Random Glucose Lactic Acid Calcium Magnesium Total Bilirubin AST ALT Alkaline Phosphatase Lactate Dehydrogenase Total Creatine Kinase Troponin I NT-Pro-B Natriuret Pep Total Protein Albumin Globulin Albumin/Globulin Ratio Procalcitonin Venous Blood Potassium 3.8 Influenza Typ A,B (EIA) 07/09/18 07/09/18 07/09/18 20:00 20:02 21:19 WBC RBC Hgb Hct MCV MCH MCHC RDW Plt Count MPV Gran % Lymph % (Auto) Morton % (Auto) Eos % (Auto) Baso % (Auto) Gran # Lymph # (Auto) Morton # (Auto) Eos # (Auto) Baso # (Auto) Neutrophils % (Manual) Band Neutrophils % Lymphocytes % (Manual) Monocytes % (Manual) PT INR APTT pCO2 37 pO2 172.0 H HCO3 25.1 ABG pH 7.44 ABG Total CO2 26.2 ABG O2 Saturation 100.5 H ABG O2 Content 21.7 ABG Base Excess 1.2 ABG Hemoglobin 15.7 ABG Carboxyhemoglobin 2.3 H POC ABG HHb (Measured) -0.5 L ABG Methemoglobin 1.3 ABG O2 Capacity 21.6 VBG pH VBG pCO2 VBG HCO3 VBG Total CO2 VBG O2 Sat (Calc) VBG Base Excess VBG Potassium Hgb O2 Saturation 96.9 Sodium 140 Chloride 102 Glucose Lactate FiO2 100.0 Crit Value Called To Crit Value Called By Blood Gas Notified Time Potassium 3.9 Carbon Dioxide 28 Anion Gap 14 BUN 65 H Creatinine 1.8 H Est GFR ( Amer) 44 Est GFR (Non-Af Amer) 36 POC Glucose (mg/dL) Random Glucose 124 H Lactic Acid Calcium 8.5 Magnesium 3.0 H Total Bilirubin 0.9 AST 31 ALT 26 Alkaline Phosphatase 92 Lactate Dehydrogenase 921 H Total Creatine Kinase 52 Troponin I 0.16 H* D NT-Pro-B Natriuret Pep 3530 H Total Protein 6.9 Albumin 3.4 Globulin 3.5 Albumin/Globulin Ratio 1.0 L Procalcitonin Venous Blood Potassium Influenza Typ A,B (EIA) Negative for flu a/b 07/09/18 07/09/18 07/10/18 23:00 23:49 02:20 WBC RBC Hgb Hct MCV MCH MCHC RDW Plt Count MPV Gran % Lymph % (Auto) Morton % (Auto) Eos % (Auto) Baso % (Auto) Gran # Lymph # (Auto) Morton # (Auto) Eos # (Auto) Baso # (Auto) Neutrophils % (Manual) Band Neutrophils % Lymphocytes % (Manual) Monocytes % (Manual) PT INR APTT pCO2 pO2 113 H HCO3 ABG pH ABG Total CO2 ABG O2 Saturation ABG O2 Content ABG Base Excess ABG Hemoglobin ABG Carboxyhemoglobin POC ABG HHb (Measured) ABG Methemoglobin ABG O2 Capacity VBG pH 7.23 L VBG pCO2 42.0 VBG HCO3 17.6 L VBG Total CO2 18.9 L VBG O2 Sat (Calc) 100.1 H VBG Base Excess -9.6 L VBG Potassium 3.0 L Hgb O2 Saturation Sodium 109.0 L* Chloride 74.0 L Glucose > 750 H* D Lactate 1.8 FiO2 21.0 Crit Value Called To Alena richmond [employer] 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 Crit Value Called By Jsm Blood Gas Notified Time 2324 Potassium Carbon Dioxide Anion Gap BUN Creatinine Est GFR ( Amer) Est GFR (Non-Af Amer) POC Glucose (mg/dL) 114 H Random Glucose Lactic Acid Calcium Magnesium Total Bilirubin AST ALT Alkaline Phosphatase Lactate Dehydrogenase Total Creatine Kinase Troponin I 0.19 H* NT-Pro-B Natriuret Pep Total Protein Albumin Globulin Albumin/Globulin Ratio Procalcitonin Venous Blood Potassium 3.0 L Influenza Typ A,B (EIA) 07/10/18 07/10/18 07/10/18 02:20 06:30 06:30 WBC 19.6 H D RBC 5.15 Hgb 15.9 Hct 49.7 MCV 96.5 MCH 30.9 MCHC 32.0 RDW 13.6 Plt Count 263 MPV 11.1 H Gran % 94.2 H Lymph % (Auto) 3.2 L Morton % (Auto) 2.5 Eos % (Auto) 0.0 L Baso % (Auto) 0.1 Gran # 18.48 H Lymph # (Auto) 0.6 L Morton # (Auto) 0.5 Eos # (Auto) 0.0 Baso # (Auto) 0.02 Neutrophils % (Manual) Band Neutrophils % Lymphocytes % (Manual) Monocytes % (Manual) PT INR APTT pCO2 pO2 HCO3 ABG pH ABG Total CO2 ABG O2 Saturation ABG O2 Content ABG Base Excess ABG Hemoglobin ABG Carboxyhemoglobin POC ABG HHb (Measured) ABG Methemoglobin ABG O2 Capacity VBG pH VBG pCO2 VBG HCO3 VBG Total CO2 VBG O2 Sat (Calc) VBG Base Excess VBG Potassium Hgb O2 Saturation Sodium Chloride Glucose Lactate FiO2 Crit Value Called To Crit Value Called By Blood Gas Notified Time Potassium Carbon Dioxide Anion Gap BUN Creatinine Est GFR ( Amer) Est GFR (Non-Af Amer) POC Glucose (mg/dL) Random Glucose Lactic Acid 2.0 Calcium Magnesium Total Bilirubin AST ALT Alkaline Phosphatase Lactate Dehydrogenase Total Creatine Kinase Troponin I NT-Pro-B Natriuret Pep Total Protein Albumin Globulin Albumin/Globulin Ratio Procalcitonin 4.76 H Venous Blood Potassium Influenza Typ A,B (EIA) 07/10/18 07/10/18 06:30 08:00 WBC RBC Hgb Hct MCV MCH MCHC RDW Plt Count MPV Gran % Lymph % (Auto) Morton % (Auto) Eos % (Auto) Baso % (Auto) Gran # Lymph # (Auto) Morton # (Auto) Eos # (Auto) Baso # (Auto) Neutrophils % (Manual) Band Neutrophils % Lymphocytes % (Manual) Monocytes % (Manual) PT INR APTT pCO2 pO2 HCO3 ABG pH ABG Total CO2 ABG O2 Saturation ABG O2 Content ABG Base Excess ABG Hemoglobin ABG Carboxyhemoglobin POC ABG HHb (Measured) ABG Methemoglobin ABG O2 Capacity VBG pH VBG pCO2 VBG HCO3 VBG Total CO2 VBG O2 Sat (Calc) VBG Base Excess VBG Potassium Hgb O2 Saturation Sodium 144 Chloride 107 Glucose Lactate FiO2 Crit Value Called To Crit Value Called By Blood Gas Notified Time Potassium 3.5 L Carbon Dioxide 28 Anion Gap 12 BUN 61 H Creatinine 1.9 H Est GFR ( Amer) 41 Est GFR (Non-Af Amer) 34 POC Glucose (mg/dL) Random Glucose 92 Lactic Acid Calcium 8.0 L Magnesium Total Bilirubin 1.3 AST 32 ALT 21 Alkaline Phosphatase 75 Lactate Dehydrogenase Total Creatine Kinase Troponin I 0.15 H* D NT-Pro-B Natriuret Pep Total Protein 6.3 Albumin 3.0 Globulin 3.3 Albumin/Globulin Ratio 0.9 L Procalcitonin Venous Blood Potassium Influenza Typ A,B (EIA) Assessment & Plan - Assessment and Plan (Free Text) Assessment: 83 yo male with SOB, tachycardia, and fevers. Chest X-ray suggestive of bilateral pneumonia. Patient given doses of Zosyn, IV Vancomycin, and Levaquin. Given renal insufficiency, would use Cefepime instead of Zosyn. The patient is being admitted to the MICU. Leukocytosis into the 30s. There is an elevated troponin as well. Obtain procalcitonin. Guiterrez cultures. The may need intubation and ventilation. Very poor prognosis. Lactic acidosis of 3.6. Fevers up to 102.1 F. At time of evaluation, the patient was tolerating BiPAP with saturations in the 95-97% lazaro. Thank you for allowing me to participate in the care of the patient, we will follow with you.
--- NOTE | 2018-07-10 18:38 | CARD ---
APPROVED REPORT Date of service: 07/10/2018 EKG Measurement Heart [id number] <Conclusion> Atrial fibrillation with rapid ventricular response Nonspecific ST abnormality, probably digitalis effect Abnormal ECG
--- NOTE | 2018-07-10 20:07 | CON ---
DATE: 07/09/2018 REASON FOR CONSULTATION: Positive troponin, respiratory distress, and cardiac evaluation. BRIEF CLINICAL HISTORY This is an 83-year-old male with past medical history significant for COPD, on home oxygen; severe pulmonary hypertension; pulmonary fibrosis; sleep apnea; depression; anxiety disorder; history of atrial fibrillation paroxysmal, and hypertension, who was in subacute rehab facility at [facility] and was transferred because of difficulty in breathing. Currently, the patient is in ICU 128, bed 7, has 102 temperature and disoriented and confused, on BiPAP. Code status; DNR and DNI. Denies any chest pain. Denies any palpitation. PAST MEDICAL HISTORY: Significant for COPD, on home oxygen; severe pulmonary hypertension; sleep apnea; depression; anxiety disorder; atrial fibrillation; and hypertension. Past history is significant for nonobstructive coronary artery disease, history of COPD, history of ex-smoker, obesity, sleep apnea as well as pulmonary hypertension, and paroxysmal atrial fibrillation in the past. PREVIOUS CARDIAC WORKUP: The patient had a cardiac catheterization following stress test on 01/23/2015 that was abnormal shows reversible apical defect ischemia, perfusion defect is new since 2012. Following that, the patient had a cardiac catheterization on 03/09/2015 that shows nonobstructive coronary artery disease, limited only to very distal LAD, diffusely diseased non-flow limiting stenosis, preserved LV function, ejection fraction 65% to 70%, and EDP was in the range of 15. Medical treatment recommended. The patient is also stress test dated 05/29/2018 probably abnormal myocardial perfusion study, apical defect inferior suspicious for ischemia, when compared to the last study, there is a improvement and partial reversible defect appears new. The patient had an echocardiography on 03/17/2018 that showed ejection fraction normal, normal segmental wall motion, normal moderate tricuspid regurgitation, severe pulmonary hypertension, RV systolic pressure 67, read by Dr. Morton, calculated ejection fraction 65% dated 03/17/2018. The patient had a Holter monitor done because of arrhythmia dated 05/29/2018 that shows sinus rhythm, sinus bradycardia and sinus tachycardia, minimum heart rate 52 at 12:10 a.m., maximum heart rate 121 at 07:58 p.m., essentially sinus with APCs isolated 5 runs longest being 11 beat. CURRENT MEDICATIONS: The patient at home was taking Spiriva, Zoloft, pantoprazole, lorazepam, and Xanax. ALLERGIES: NO KNOWN DRUG ALLERGY. FURTHER WORKUP: CT chest dated 03/09/2018 shows progression of interstitial lung disease, noted some consolidative changes with chronic progress consistent with interstitial fibrosis possibly. The patient's recent stress test on 05/29/2018 that show probably abnormal myocardial perfusion study partial reversible apical defect suspicious for ischemia when compared to 2018, there is an improvement in distal defect, inferior defect appears new. The patient had Holter monitor on 05/29/2018 that shows sinus rhythm as mentioned above. Stress test essentially unchanged from 2015. The patient had a cardiac catheterization that revealed nonobstructive coronary artery disease. SOCIAL HISTORY: No history of smoking and alcohol abuse. REVIEW OF SYSTEMS: As per HPI. PHYSICAL EXAMINATION: GENERAL: As follows; height of the patient is 5 feet 7 inches, weight of the patient 148 pounds, and body mass index 23.2 kg/m2. VITAL SIGNS: Temperature is afebrile, heart rate 95 and blood pressure 130/80. HEENT: PERRLA. Extraocular muscles are intact. NECK: Supple. No carotid bruits or thyromegaly. CHEST: Clear to auscultation. HEART: S1 and S2 regular. ABDOMEN: Soft. EXTREMITIES: Clubbing and cyanosis negative. LABORATORY DATA: WBC 19.6, hemoglobin 15.5, hematocrit 49.7, and platelet count 263. Chemistry shows sodium 141, potassium 3.5, chloride 107, carbon dioxide 28, anion gap of 12, BUN 16, and creatinine 1.9. Troponin 0.16 and 0.19. Chest x-ray appears pulmonary fibrosis interstitial infiltrate cannot rule out underlying CHF. EKG today is pending. Telemetry strip shows sinus with APCs. IMPRESSION: An 83-year-old male with past medical history significant for interstitial fibrosis; chronic obstructive pulmonary disease, on home oxygen; history of nonobstructive coronary artery disease, status post cardiac catheterization in 2014, distal left anterior descending diffusely diseased, preserved left ventricular function, date of the catheterization 03/09/2015. Recent stress is abnormal, no change from 2015. Recent CAT scan dated 03/09/2018 shows progressive interstitial lung disease, consolidative changes, chronic process consist with pulmonary fibrosis, history of paroxysmal atrial fibrillation, ex-smoker with sleep apnea and pulmonary hypertension with paroxysmal atrial fibrillation, who was in [facility] who was transferred because of the shortness of breath. Chest x-rays done mild pulmonary edema with interstitial fibrosis, borderline troponin positive. RECOMMENDATIONS: The patient is already on Eliquis, we will continue. The patient was at home Eliquis, but probably is stopped at the [facility], so we will start renal adjusted dose of Lovenox. Continue gentle diuretics as blood pressure and heart rate is tolerated. Continue noninvasive ventilator. Overall, the patient's condition is critical and long-term prognosis is guarded. Discussed with , phone specialist. We will make the patient DNR and DNI as per family's wish. We will follow with you. Kimmy Ceballos MD
[2018-07-10 20:30] LABS: MYCOPLASMA PNEUMONIAE IGM NEGATIVE (NEGATIVE)
[2018-07-11] MEDS ORDERED: levoFLOXacin 750 mg in D5W 150 ML BAG IVPB SCH (10:00)
== END 2018-07-10 10:11 | DRG 190 ==
LOC: ED 19:24 → ERH 22:44 → ICU 23:48
PROVIDERS: ADMIT Internal Medicine; ATTEND Internal Medicine
PROC: 5A09357 Assistance with Respiratory Ventilation, Less than 24 Consecutive Hours, Continuous Positive Airway Pressure (ICD-10-PCS; principal; 2018-07-10)
DX: J44.1 Chronic obstructive pulmonary disease with (acute) exacerbation (principal); J18.9 Pneumonia, unspecified organism; J44.0 Chronic obstructive pulmonary disease with (acute) lower respiratory infection; H81.09 Meniere's disease, unspecified ear; I10 Essential (primary) hypertension; I48.0 Paroxysmal atrial fibrillation; I27.20 Pulmonary hypertension, unspecified; I25.10 Atherosclerotic heart disease of native coronary artery without angina pectoris; J84.10 Pulmonary fibrosis, unspecified; Z66 Do not resuscitate; Z51.5 Encounter for palliative care; G47.30 Sleep apnea, unspecified; F41.9 Anxiety disorder, unspecified; F32.9 Major depressive disorder, single episode, unspecified; H91.90 Unspecified hearing loss, unspecified ear; Y95 Nosocomial condition; Z99.81 Dependence on supplemental oxygen; Z86.010 Personal history of colon polyps; Z87.891 Personal history of nicotine dependence